=== PATIENT | female | born 1995 | race American Indian/Alaskan Native ===

== ENCOUNTER 2016-07-29 22:27 | Emergency (ER) | payer MEDICAID ==
[2016-07-29 23:15] LABS: CHLORIDE,CL 106 mmol/L (101-111); SODIUM,NA 140 mmol/L (135-145)
--- NOTE | 2016-07-29 23:36 | EDM.PDOC ---
ED HPI GI/ABDOMINAL - General Chief Complaint: Abdominal Pain Stated Complaint: ABDOMINAL PAIN,VOMITING Time Seen by Provider: 07/29/16 23:20 Source of Information: Reports: Patient History Limitations: Reports: No limitations - History of Present Illness INITIAL COMMENTS - FREE TEXT/NARRATIVE: This 20 yo female patient was brought to the ED by her family due to lower abdominal pain that started today. The patient reports most of her pain is in the left lower quadrant. The patient reports normal bowel movements and normal urination. The patient has not taken anything to make her symptoms better and palpation of the abdomen makes her pain worse. Symptom Onset Date: 07/29/16 Timing/Duration: Reports: Hour(s):, Constant, Getting worse Location: LLQ Quality: Reports: ache, cramping Severity: severe Worsens with: Reports: palpation Associated Symptoms (-Female): Reports: denies other symptoms - Related Data Allergies/ADRs: Allergies Allergy/AdvReac Type Severity Reaction Status Date / Time No Known Allergies Allergy Verified 07/29/16 22:32 Home Meds: Home Meds Omeprazole 40 mg PO DAILY 11/01/15 [History] Past Medical History - Past Health History Medical/Surgical History: Denies Medical/Surgical History HEENT History: Reports: None Cardiovascular History: Reports: None Respiratory History: Reports: None Gastrointestinal History: Reports: GERD Genitourinary History: Reports: None 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 Musculoskeletal History: Reports: None Neurological History: Reports: None Psychiatric History: Reports: None Endocrine/Metabolic History: Reports: None Hematologic History: Reports: None Immunologic History: Reports: None Oncologic (Cancer) History: Reports: None Dermatologic History: Reports: Eczema - Infectious Disease History Infectious Disease History: Reports: None - Past Surgical History Head Surgeries/Procedures: Reports: None GI Surgical History: Reports: Cholecystectomy Social & Family History - Family History Family Medical History: Noncontributory - Tobacco Use Smoking Status *Q: Current Every Day Smoker Years of Tobacco use: 3 Packs/Tins Daily: 0.5 Used Tobacco, but Quit: No Month Tobacco Last Used: september Second Hand Smoke Exposure: No - Caffeine Use Caffeine Use: Reports: Coffee, Energy drinks, Soda - Alcohol Use Days Per Week of Alcohol Use: 0 - Recreational Drug Use Recreational Drug Use: Yes Drug Use in Last 12 Months: Yes Recreational Drug Type: Reports: Marijuana/Hashish Recreational Drug Use Frequency: Daily ED ROS GENERAL - Review of Systems Review Of Systems: ROS reveals no pertinent complaints other than HPI. ED EXAM, GI/ABD - Physical Exam Exam: See Below Exam Limited By: No limitations General Appearance: alert, WD/WN, moderate distress Eyes: bilateral: normal appearance, EOMI Ears: normal external exam, normal canal, hearing grossly normal, normal TMs Nose: normal inspection, normal mucosa, no blood Throat/Mouth: Normal inspection, Normal lips, Normal teeth, Normal gums, Normal oropharynx, Normal voice, No airway compromise Head: atraumatic, normocephalic Neck: normal inspection, supple, non-tender, full range of motion Respiratory/Chest: no respiratory distress, lungs clear, normal breath sounds, no accessory muscle use, chest non-tender GI/Abdominal: normal bowel sounds, no organomegaly, no distention, no abnormal bruit, no mass, tenderness (diffuse), guarding, rebound, psoas sign (Female) Exam: Deferred Rectal (Female) Exam: Deferred Back Exam: normal inspection, full range of motion, NT Extremities: normal inspection, normal range of motion, non-tender, normal capillary refill, no pedal edema Neurological: alert, oriented, CN II-XII intact, normal cognition Psychiatric: normal affect, normal mood Skin Exam: Warm, Dry, Intact, Normal color, No rash Lymphatic: no adenopathy Course - Vital Signs Last Recorded V/S: Last Vital Signs Temp 36.3 C 07/30/16 00:20 Pulse 86 07/30/16 00:20 Resp 16 07/30/16 00:20 BP 116/74 07/30/16 00:20 Pulse Ox 98 07/30/16 00:20 - Orders/Labs/Meds Labs: Laboratory Tests 07/29/16 07/29/16 07/29/16 Range/Units 22:42 22:42 22:55 WBC 13.7 H (5.0-10.0) 10^3/uL RBC 4.64 (4.2-5.4) 10^6/uL Hgb 13.6 (12.0-16.0) g/dL Hct 41.5 (37.0-47.0) % MCV 89.4 (80-100) fL MCH 29.3 (27.0-34.0) pg MCHC 32.8 L (33.0-35.0) g/dL Plt Count 309 (150-450) 10^3/uL Neut % (Auto) 77.4 H (42.2-75.2) % Lymph % (Auto) 15.6 L (20.5-50.1) % [place] % (Auto) 5.3 (2-8) % Eos % (Auto) 1.4 (1.0-3.0) % Baso % (Auto) 0.3 (0.0-1.0) % Sodium (135-145) mmol/L Potassium (3.6-5.0) mmol/L Chloride (101-111) mmol/L Carbon Dioxide (21.0-31.0) mmol/L Anion Gap BUN (7-18) mg/dL Creatinine (0.6-1.3) mg/dL Est Cr Clr Drug Dosing mL/min Estimated GFR (MDRD) BUN/Creatinine Ratio Glucose (74-105) mg/dL Calcium (8.4-10.2) mg/dl Total Bilirubin (0.2-1.0) mg/dL AST (10-42) IU/L ALT (10-60) IU/L Alkaline Phosphatase (42-121) IU/L Total Protein (6.7-8.2) g/dl Albumin (3.2-5.5) g/dl Globulin Albumin/Globulin Ratio HCG, Qual Urine Color Yellow (YELLOW) Urine Appearance Slightly cloudy (CLEAR) Urine pH 6.0 (5.0-9.0) Ur Specific [place] 1.015 (1.005-1.030) Urine Protein Negative (NEGATIVE) Urine Glucose (UA) Negative (NEGATIVE) Urine Ketones Negative (NEGATIVE) Urine Occult Blood Negative (NEGATIVE) Urine Nitrite Negative (NEGATIVE) Urine Bilirubin Negative (NEGATIVE) Urine Urobilinogen 0.2 (0.2-1.0) mg/dL Ur Leukocyte Esterase Small H (NEGATIVE) Urine RBC 0-5 /HPF Urine WBC 5-10 H (0-5/HPF) /HPF Ur Epithelial Cells Few /HPF Urine Bacteria Rare (0-FEW/HPF) /HPF Urine Opiates Screen Negative (NEGATIVE) Ur Oxycodone Screen Negative (NEGATIVE) Urine Methadone Screen Negative (NEGATIVE) Ur Barbiturates Screen Negative (NEGATIVE) U Tricyclic Antidepress Negative (NEGATIVE) Ur Phencyclidine Scrn Negative (NEGATIVE) Ur Amphetamine Screen Negative (NEGATIVE) U Methamphetamines Scrn Negative (NEGATIVE) Urine MDMA Screen Negative (NEGATIVE) U Benzodiazepines Scrn Negative (NEGATIVE) Urine Cocaine Screen Negative (NEGATIVE) U Marijuana (THC) Screen Positive H (NEGATIVE) 07/29/16 Range/Units 22:55 WBC (5.0-10.0) 10^3/uL RBC (4.2-5.4) 10^6/uL Hgb (12.0-16.0) g/dL Hct (37.0-47.0) % MCV (80-100) fL MCH (27.0-34.0) pg MCHC (33.0-35.0) g/dL Plt Count (150-450) 10^3/uL Neut % (Auto) (42.2-75.2) % Lymph % (Auto) (20.5-50.1) % [place] % (Auto) (2-8) % Eos % (Auto) (1.0-3.0) % Baso % (Auto) (0.0-1.0) % Sodium 140 (135-145) mmol/L Potassium 3.7 (3.6-5.0) mmol/L Chloride 106 (101-111) mmol/L Carbon Dioxide 25.0 (21.0-31.0) mmol/L Anion Gap 12.7 BUN 7 (7-18) mg/dL Creatinine 0.7 (0.6-1.3) mg/dL Est Cr Clr Drug Dosing 87.01 mL/min Estimated GFR (MDRD) > 60 BUN/Creatinine Ratio 10.00 Glucose 96 (74-105) mg/dL Calcium 9.3 (8.4-10.2) mg/dl Total Bilirubin 0.3 (0.2-1.0) mg/dL AST 21 (10-42) IU/L ALT 14 (10-60) IU/L Alkaline Phosphatase 79 (42-121) IU/L Total Protein 7.5 (6.7-8.2) g/dl Albumin 4.2 (3.2-5.5) g/dl Globulin 3.3 Albumin/Globulin Ratio 1.27 HCG, Qual Negative Urine Color (YELLOW) Urine Appearance (CLEAR) Urine pH (5.0-9.0) Ur Specific [place] (1.005-1.030) Urine Protein (NEGATIVE) Urine Glucose (UA) (NEGATIVE) Urine Ketones (NEGATIVE) Urine Occult Blood (NEGATIVE) Urine Nitrite (NEGATIVE) Urine Bilirubin (NEGATIVE) Urine Urobilinogen (0.2-1.0) mg/dL Ur Leukocyte Esterase (NEGATIVE) Urine RBC /HPF Urine WBC (0-5/HPF) /HPF Ur Epithelial Cells /HPF Urine Bacteria (0-FEW/HPF) /HPF Urine Opiates Screen (NEGATIVE) Ur Oxycodone Screen (NEGATIVE) Urine Methadone Screen (NEGATIVE) Ur Barbiturates Screen (NEGATIVE) U Tricyclic Antidepress (NEGATIVE) Ur Phencyclidine Scrn (NEGATIVE) Ur Amphetamine Screen (NEGATIVE) U Methamphetamines Scrn (NEGATIVE) Urine MDMA Screen (NEGATIVE) U Benzodiazepines Scrn (NEGATIVE) Urine Cocaine Screen (NEGATIVE) U Marijuana (THC) Screen (NEGATIVE) Meds: Medications Discontinued Medications Generic Name Dose Route Start Last Admin Trade Name Freq PRN Reason Stop Dose Admin Iopamidol 75 ml 07/29/16 23:48 07/30/16 00:01 Isovue-300 (61%) IVPUSH 07/29/16 23:49 75 ml ONETIME ONE Administration Departure - Departure Time of Disposition: 00:47 Disposition: Home, Self-Care 01 Condition: fair Clinical Impression: Flatulence, eructation and gas pain Abdominal pain Qualifiers: Abdominal location: generalized Qualified Code(s): R10.84 - Generalized abdominal pain Instructions: Abdominal Pain, Adult, [id number] Forms: ED Department Discharge Care Plan Goals: The patient was advised of the examination, lab and CT results during the visit. The patient was encouraged to increase her mobility. If the patient has any additional symptoms or concerns, the patient should follow-up with her primary care facility or return to the emergency department.
[2016-07-29] MEDS ORDERED: Iopamidol 612 MG/ML 75 ML Bottle IVPUSH ONE (23:48)
[2016-07-30 00:20] VITALS: BP 116/74
== END 2016-07-30 00:51 | disposition home or self-care (01) ==
LOC: DL.ED 22:27
DX: R10.84 Generalized abdominal pain (principal); R10.32 Left lower quadrant pain; R14.3 Flatulence; R14.2 Eructation; R14.1 Gas pain; K21.9 Gastro-esophageal reflux disease without esophagitis; F17.210 Nicotine dependence, cigarettes, uncomplicated; Z90.49 Acquired absence of other specified parts of digestive tract
CPT/HCPCS: 36415; 74177; 80053; 80305; 81001; 84703; 85025; 99284; Q9967

== ENCOUNTER 2016-10-11 16:46 | Emergency (ER) | payer MEDICAID ==
[2016-10-11 17:22] VITALS: BP 120/79
[2016-10-11] MEDS ORDERED: Bacitracin Oint 1 GM U/D Packet TOP ONE (17:43)
[2016-10-11] MEDS ORDERED: Lidocaine 1% 30 ML SDV INJECT ONE (17:43)
--- NOTE | 2016-10-11 18:08 | EDM.PDOC ---
ED HPI GENERAL MEDICAL PROBLEM - General Chief Complaint: Laceration Stated Complaint: CUT FINGER Time Seen by Provider: 10/11/16 17:45 Source of Information: Reports: Patient History Limitations: Reports: No Limitations - History of Present Illness INITIAL COMMENTS - FREE TEXT/NARRATIVE: This 21 yo female patient reports to the ED with a laceration to her left 2nd finger on the flexor surface of the DIP. The patient reports she was opening a package with a knife at the time of the incident. Onset: Today Duration: Constant Location: Reports: Upper Extremity, Left Quality: Reports: Ache, Dull Severity: Mild Improves with: Reports: None Worsens with: Reports: None Associated Symptoms: Reports: No Other Symptoms Left Hand Pain Score (Numeric/FACES): 10 - Related Data Allergies Allergy/AdvReac Type Severity Reaction Status Date / Time No Known Allergies Allergy Verified 07/29/16 22:32 Home Meds: Home Meds Omeprazole 40 mg PO DAILY 11/01/15 [History] Past Medical History - Past Health History Medical/Surgical History: Denies Medical/Surgical History HEENT History: Reports: None Cardiovascular History: Reports: None Respiratory History: Reports: None Gastrointestinal History: Reports: GERD Genitourinary History: Reports: None 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 Musculoskeletal History: Reports: None Neurological History: Reports: None Psychiatric History: Reports: None Endocrine/Metabolic History: Reports: None Hematologic History: Reports: None Immunologic History: Reports: None Oncologic (Cancer) History: Reports: None Dermatologic History: Reports: Eczema - Infectious Disease History Infectious Disease History: Reports: None - Past Surgical History Head Surgeries/Procedures: Reports: None GI Surgical History: Reports: Cholecystectomy Social & Family History - Family History Family Medical History: Noncontributory - Tobacco Use Smoking Status *Q: Current Some Day Smoker Years of Tobacco use: 4 Packs/Tins Daily: 1 Used Tobacco, but Quit: No Month Tobacco Last Used: september Second Hand Smoke Exposure: No - Caffeine Use Caffeine Use: Reports: Coffee, Energy Drinks, Soda, Tea - Alcohol Use Days Per Week of Alcohol Use: 0 - Recreational Drug Use Recreational Drug Use: Yes Drug Use in Last 12 Months: Yes Recreational Drug Type: Reports: Marijuana/Hashish Recreational Drug Use Frequency: Daily ED ROS GENERAL - Review of Systems Review Of Systems: ROS reveals no pertinent complaints other than HPI. ED EXAM, SKIN/RASH Exam: See Below Exam Limited By: No Limitations General Appearance: Alert, WD/WN, Mild Distress Eye Exam: Bilateral Eye: EOMI Ears: Normal External Exam Nose: Normal Inspection, Normal Mucosa, No Blood Throat/Mouth: Normal Inspection, Normal Lips, Normal Teeth Head: Atraumatic, Normocephalic Neck: Full Range of Motion Respiratory/Chest: No Respiratory Distress (Female) Exam: Deferred Rectal (Female) Exam: Deferred Extremities: No Pedal Edema, Normal Capillary Refill Neurological: Alert, Oriented Psychiatric: Normal Affect, Normal Mood Skin: Warm, Dry, Normal Color, No Rash Location, Skin: Upper Extremity, Left Characteristics: Linear Associated features: No: Warmth, Tenderness, [place] ED SKIN PROCEDURES - Laceration/Wound Repair Left Finger Lac/Wound length In cm: 1.0 Appearance: Subcutaneous Distal NVT: Neuro & Vascular Intact, No Tendon Injury Anesthetic Type: Local Local Anesthesia - Lidocaine (Xylocaine): 1% Plain Local Anesthetic Volume: 3cc Skin Prep: Chlorhexidine (Hibiciens), Providone-Iodine (Betadine) Exploration/Debridement/Repair: Wound Explored, Explored to Base, No Foreign Material Found Closed with: Sutures Suture Size: 4-0 # of Sutures: 3 Suture Type: Prolene, Interrupted, Simple Drain Placement: No Sterile Dressing Applied: Nurse Tetanus Status Addressed: No Complications: No Course - Vital Signs Last Recorded V/S: Last Vital Signs Temp 36.6 C 10/11/16 17:21 Pulse 54 L 10/11/16 17:21 Resp 14 10/11/16 17:21 BP 120/79 10/11/16 17:21 Pulse Ox 99 10/11/16 17:21 - Orders/Labs/Meds Meds: Medications Discontinued Medications Generic Name Dose Route Start Last Admin Trade Name Denisq PRN Reason Stop Dose Admin Bacitracin 1 dose 10/11/16 17:43 10/11/16 17:46 Bacitracin Oint 1 Gm TOP 10/11/16 17:44 1 dose ONETIME ONE Administration Lidocaine HCl 30 ml 10/11/16 17:43 10/11/16 17:47 Xylocaine-Mpf 1% INJECT 10/11/16 17:44 30 ml ONETIME ONE Administration Departure - Departure Time of Disposition: 18:04 Disposition: Home, Self-Care 01 Condition: Fair Clinical Impression: Laceration of left index finger Qualifiers: Encounter type: initial encounter Damage to nail status: without damage Foreign body presence: without foreign body Qualified Code(s): S61.211A - Laceration without foreign body of left index finger without damage to nail, initial encounter - Discharge Information Instructions: Laceration Care, Adult, [id number] Forms: ED Department Discharge Care Plan Goals: The patient was advised of the examination results during the visit. The patient 's laceration margins were well approximated during the visit. The patient should keep the area clean and dry over the next 24 hours. The patient should have the sutures removed in 14 days. If the patient has any additional symptoms or concerns, the patient should follow-up with her primary care facility or return to the emergency department.
== END 2016-10-11 18:12 | disposition home or self-care (01) ==
LOC: DL.ED 16:46
DX: S61.211A Laceration without foreign body of left index finger without damage to nail, initial encounter (principal); F17.210 Nicotine dependence, cigarettes, uncomplicated; K21.9 Gastro-esophageal reflux disease without esophagitis; Z79.899 Other long term (current) drug therapy; Z90.49 Acquired absence of other specified parts of digestive tract
CPT/HCPCS: 12001; 99283

== ENCOUNTER 2016-12-04 19:40 | Emergency (ER) | payer MEDICAID ==
[2016-12-04 19:49] VITALS: BP 131/85
[2016-12-04] MEDS ORDERED: LORazepam 2 MG/ML Syringe IVPUSH ONE (19:57)
--- NOTE | 2016-12-04 19:59 | EDM.PDOC ---
ED HPI GENERAL MEDICAL PROBLEM - General Chief Complaint: Respiratory Problem Stated Complaint: AMBULANCE Time Seen by Provider: 12/04/16 19:45 Source of Information: Reports: Patient, EMS History Limitations: Reports: No Limitations - History of Present Illness INITIAL COMMENTS - FREE TEXT/NARRATIVE: c/o right posterior chest and flank pain starting around noon, laid down for nap and when woke pain worse. Increases with deep breathing, and movment. No pain with urination, Lmp initially reported one month ago then reported started 5 days ago and one week early, Passed large clot this am. Denied drug use. Smoker 5 perday. 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) Right Lower Back Pain Score (Numeric/FACES): 10 - Related Data Allergies Allergy/AdvReac Type Severity Reaction Status Date / Time No Known Allergies Allergy Verified 12/04/16 21:48 Past Medical History - Past Health History Medical/Surgical History: Denies Medical/Surgical History HEENT History: Reports: None Cardiovascular History: Reports: None Respiratory History: Reports: None Gastrointestinal History: Reports: GERD Genitourinary History: Reports: None 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 Musculoskeletal History: Reports: None Neurological History: Reports: None Psychiatric History: Reports: None Endocrine/Metabolic History: Reports: None Hematologic History: Reports: None Immunologic History: Reports: None Oncologic (Cancer) History: Reports: None Dermatologic History: Reports: Eczema - Infectious Disease History Infectious Disease History: Reports: None - Past Surgical History Head Surgeries/Procedures: Reports: None GI Surgical History: Reports: Cholecystectomy Social & Family History - Family History Family Medical History: Noncontributory - Tobacco Use Smoking Status *Q: Current Some Day Smoker Years of Tobacco use: 4 Packs/Tins Daily: 1 Used Tobacco, but Quit: No Month Tobacco Last Used: september Second Hand Smoke Exposure: No - Caffeine Use Caffeine Use: Reports: Coffee, Energy Drinks, Soda, Tea - Alcohol Use Days Per Week of Alcohol Use: 0 - Recreational Drug Use Recreational Drug Use: Yes Drug Use in Last 12 Months: Yes Recreational Drug Type: Reports: Marijuana/Hashish Recreational Drug Use Frequency: Daily ED ROS GENERAL - Review of Systems Review Of Systems: See Below Constitutional: Reports: No Symptoms HEENT: Reports: No Symptoms Respiratory: Reports: Pleuritic Chest Pain Cardiovascular: Reports: No Symptoms GI/Abdominal: Reports: No Symptoms : Reports: Irregular Menses Musculoskeletal: Reports: No Symptoms Skin: Reports: No Symptoms Neurological: Reports: No Symptoms Psychiatric: Reports: Anxiety ED EXAM, GENERAL - Physical Exam Exam: See Below Exam Limited By: No Limitations General Appearance: Alert, Anxious (hyperventilating) Eye Exam: Bilateral Eye: EOMI Ears: Normal External Exam, Normal TMs Nose: Normal Inspection Throat/Mouth: Normal Inspection Head: Atraumatic, Normocephalic Neck: Normal Inspection, Full Range of Motion. No: Lymphadenopathy (L), Lymphadenopathy (R) Respiratory/Chest: No Respiratory Distress, Lungs Clear Cardiovascular: Normal Peripheral Pulses, Regular Rate, Rhythm, Tachycardia GI/Abdominal: Normal Bowel Sounds, Soft, Non-Tender Back Exam: CVA Tenderness (R). No: CVA Tenderness (L) Extremities: Normal Inspection Neurological: Alert, Oriented Psychiatric: Anxious (hyperventilating) Skin Exam: Warm, Dry, Intact Course - Vital Signs Last Recorded V/S: Last Vital Signs Temp 98.6 F 12/04/16 19:47 Pulse 124 H 12/04/16 19:47 Resp 22 H 12/04/16 19:47 BP 131/85 12/04/16 19:47 Pulse Ox 100 12/04/16 19:47 - Orders/Labs/Meds Labs: Laboratory Tests 12/04/16 12/04/16 12/04/16 Range/Units 19:55 19:55 20:01 WBC 7.8 (5.0-10.0) 10^3/uL RBC 4.47 (4.2-5.4) 10^6/uL Hgb 12.8 (12.0-16.0) g/dL Hct 39.1 (37.0-47.0) % MCV 87.5 (80-100) fL MCH 28.6 (27.0-34.0) pg MCHC 32.7 L (33.0-35.0) g/dL Plt Count 249 (150-450) 10^3/uL Neut % (Auto) 83.8 H (42.2-75.2) % Lymph % (Auto) 7.3 L (20.5-50.1) % [place] % (Auto) 8.7 H (2-8) % Eos % (Auto) 0.1 L (1.0-3.0) % Baso % (Auto) 0.1 (0.0-1.0) % D-Dimer, Quantitative (0-400) ng/mL Sodium (135-145) mmol/L Potassium (3.6-5.0) mmol/L Chloride (101-111) mmol/L Carbon Dioxide (21.0-31.0) mmol/L Anion Gap BUN (7-18) mg/dL Creatinine (0.6-1.3) mg/dL Est Cr Clr Drug Dosing Estimated GFR (MDRD) BUN/Creatinine Ratio Glucose (74-105) mg/dL Lactic Acid (0.5-2.2) mmol/L Calcium (8.4-10.2) mg/dl Total Bilirubin (0.2-1.0) mg/dL AST (10-42) IU/L ALT (10-60) IU/L Alkaline Phosphatase (42-121) IU/L Total Protein (6.7-8.2) g/dl Albumin (3.2-5.5) g/dl Globulin Albumin/Globulin Ratio HCG, Qual Urine Color Dark yellow (YELLOW) Urine Appearance Turbid (CLEAR) Urine pH 6.0 (5.0-9.0) Ur Specific [place] >= 1.030 (1.005-1.030) Urine Protein 30 H (NEGATIVE) Urine Glucose (UA) Negative (NEGATIVE) Urine Ketones Negative (NEGATIVE) Urine Occult Blood Large H (NEGATIVE) Urine Nitrite Negative (NEGATIVE) Urine Bilirubin Small H (NEGATIVE) Urine Urobilinogen 1.0 (0.2-1.0) mg/dL Ur Leukocyte Esterase Negative (NEGATIVE) Urine RBC >100 H /HPF Urine WBC 0-5 (0-5/HPF) /HPF Ur Epithelial Cells Moderate H /HPF Amorphous Sediment Few (0/HPF) /HPF Urine Bacteria Rare (0-FEW/HPF) /HPF Urine Mucus Moderate H /LPF Urine Opiates Screen Negative (NEGATIVE) Ur Oxycodone Screen Positive H (NEGATIVE) Urine Methadone Screen Negative (NEGATIVE) Ur Barbiturates Screen Negative (NEGATIVE) U Tricyclic Antidepress Negative (NEGATIVE) Ur Phencyclidine Scrn Negative (NEGATIVE) Ur Amphetamine Screen Negative (NEGATIVE) U Methamphetamines Scrn Negative (NEGATIVE) Urine MDMA Screen Negative (NEGATIVE) U Benzodiazepines Scrn Negative (NEGATIVE) Urine Cocaine Screen Negative (NEGATIVE) U Marijuana (THC) Screen Positive H (NEGATIVE) 12/04/16 12/04/16 12/04/16 Range/Units 20:01 20:01 20:01 WBC (5.0-10.0) 10^3/uL RBC (4.2-5.4) 10^6/uL Hgb (12.0-16.0) g/dL Hct (37.0-47.0) % MCV (80-100) fL MCH (27.0-34.0) pg MCHC (33.0-35.0) g/dL Plt Count (150-450) 10^3/uL Neut % (Auto) (42.2-75.2) % Lymph % (Auto) (20.5-50.1) % [place] % (Auto) (2-8) % Eos % (Auto) (1.0-3.0) % Baso % (Auto) (0.0-1.0) % D-Dimer, Quantitative 233 (0-400) ng/mL Sodium 140 (135-145) mmol/L Potassium 2.8 L (3.6-5.0) mmol/L Chloride 103 (101-111) mmol/L Carbon Dioxide 22.0 (21.0-31.0) mmol/L Anion Gap 17.8 BUN 8 (7-18) mg/dL Creatinine 0.7 (0.6-1.3) mg/dL Est Cr Clr Drug Dosing TNP Estimated GFR (MDRD) > 60 BUN/Creatinine Ratio 11.42 Glucose 96 (74-105) mg/dL Lactic Acid 4.0 H (0.5-2.2) mmol/L Calcium 9.2 (8.4-10.2) mg/dl Total Bilirubin 0.6 (0.2-1.0) mg/dL AST 29 (10-42) IU/L ALT 19 (10-60) IU/L Alkaline Phosphatase 96 (42-121) IU/L Total Protein 7.4 (6.7-8.2) g/dl Albumin 4.2 (3.2-5.5) g/dl Globulin 3.2 Albumin/Globulin Ratio 1.31 HCG, Qual Negative Urine Color (YELLOW) Urine Appearance (CLEAR) Urine pH (5.0-9.0) Ur Specific [place] (1.005-1.030) Urine Protein (NEGATIVE) Urine Glucose (UA) (NEGATIVE) Urine Ketones (NEGATIVE) Urine Occult Blood (NEGATIVE) Urine Nitrite (NEGATIVE) Urine Bilirubin (NEGATIVE) Urine Urobilinogen (0.2-1.0) mg/dL Ur Leukocyte Esterase (NEGATIVE) Urine RBC /HPF Urine WBC (0-5/HPF) /HPF Ur Epithelial Cells /HPF Amorphous Sediment (0/HPF) /HPF Urine Bacteria (0-FEW/HPF) /HPF Urine Mucus /LPF Urine Opiates Screen (NEGATIVE) Ur Oxycodone Screen (NEGATIVE) Urine Methadone Screen (NEGATIVE) Ur Barbiturates Screen (NEGATIVE) U Tricyclic Antidepress (NEGATIVE) Ur Phencyclidine Scrn (NEGATIVE) Ur Amphetamine Screen (NEGATIVE) U Methamphetamines Scrn (NEGATIVE) Urine MDMA Screen (NEGATIVE) U Benzodiazepines Scrn (NEGATIVE) Urine Cocaine Screen (NEGATIVE) U Marijuana (THC) Screen (NEGATIVE) Meds: Medications Discontinued Medications Generic Name Dose Route Start Last Admin Trade Name Freq PRN Reason Stop Dose Admin Acetaminophen 650 mg 12/04/16 23:35 12/04/16 23:49 Tylenol PO 12/04/16 23:36 650 mg NOW ONE Administration Potassium Chloride 10 meq/ 100 mls @ 100 mls/hr 12/04/16 20:50 12/04/16 21:11 Premix IV 12/04/16 21:49 100 mls/hr ONETIME ONE Administration Sodium Chloride 1,000 mls @ 999 mls/hr 12/04/16 20:51 12/04/16 21:07 Normal Saline IV 12/04/16 21:51 999 mls/hr .BOLUS ONE Administration Lorazepam 0.5 mg 12/04/16 19:57 12/04/16 20:02 Ativan IVPUSH 12/04/16 19:58 0.5 mg ONETIME ONE Administration Ondansetron HCl 4 mg 12/04/16 21:03 12/04/16 21:08 Zofran IV 12/04/16 21:04 4 mg ONETIME ONE Administration Potassium Chloride 20 meq 12/04/16 20:49 12/04/16 21:08 Klor-Con 10 PO 12/04/16 20:50 20 meq ONETIME ONE Administration - Radiology Interpretation Free Text/Narrative:: CXR and CT abdomen pelvis negative - Re-Assessments/Exams Free Text/Narrative Re-Assessment/Exam: Pain and anxiety improved following Ativan. Emesis x1 Dozing. Departure - Departure Time of Disposition: 23:36 Disposition: Home, Self-Care 01 Condition: Good Clinical Impression: Right flank pain, Anxiety - Discharge Information Instructions: Panic Attacks, [id number], Costochondritis, [id number] Forms: ED Department Discharge Additional Instructions: alternate tylenol and ibuprofen every 4 hours as needed push fluids follow up with recheck of potassium level in clinic on Saturday
[2016-12-04 20:25] LABS: CHLORIDE,CL 103 mmol/L (101-111); SODIUM,NA 140 mmol/L (135-145)
[2016-12-04] MEDS ORDERED: Potassium Chloride 10 MEQ Tab.ER PO ONE (20:49)
[2016-12-04] MEDS ORDERED: Potassium Chloride 10 MEQ in Premix Bag 1 BAG IV ONE (20:50)
[2016-12-04] MEDS ORDERED: Sodium Chloride 0.9% 1,000 ML IV ONE (20:51)
[2016-12-04] MEDS ORDERED: Ondansetron 4 MG/2 ML SDV IV ONE (21:03)
[2016-12-04] MEDS ORDERED: Acetaminophen 325 MG Tab PO ONE (23:35)
== END 2016-12-04 23:57 | disposition home or self-care (01) ==
LOC: DL.ED 19:40
DX: R10.9 Unspecified abdominal pain (principal); F41.9 Anxiety disorder, unspecified; K21.9 Gastro-esophageal reflux disease without esophagitis; F17.210 Nicotine dependence, cigarettes, uncomplicated; Z90.49 Acquired absence of other specified parts of digestive tract
CPT/HCPCS: 36415; 71020; 74176; 80053; 80305; 81001; 83605; 84703; 85025; 85379; 96365; 96366; 96368; 96375; 99284; A9270; J2060; J2405; J3480; J7030

== ENCOUNTER 2016-12-06 14:20 | Emergency (ER) | payer MEDICAID ==
[2016-12-06] MEDS ORDERED: Sodium Chloride 0.9% 10 ML Syringe FLUSH PRN (14:34)
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
[2016-12-06] MEDS ORDERED: Sodium Chloride 0.9% 1,000 ML IV ONE (14:36)
[2016-12-06 14:56] VITALS: BP 116/85
[2016-12-06 15:12] LABS: ACETAMINOPHEN 12.1; CHLORIDE,CL 106 mmol/L (101-111); SODIUM,NA 140 mmol/L (135-145)
--- NOTE | 2016-12-07 22:21 | EKG ---
12/06/2016 - KELLY DEWITT - This 12-lead EKG shows a sinus arrhythmia with an average rate of 54 (47 to 63). No acute ST-segment or T-wave changes. [facility] /[id number]
== END 2016-12-06 16:35 ==
LOC: DL.ED 14:20
DX: T44.7X2A Poisoning by beta-adrenoreceptor antagonists, intentional self-harm, initial encounter (principal); T74.31XA Adult psychological abuse, confirmed, initial encounter; F32.9 Major depressive disorder, single episode, unspecified; Z90.49 Acquired absence of other specified parts of digestive tract; F17.210 Nicotine dependence, cigarettes, uncomplicated
CPT/HCPCS: 36415; 80053; 80305; 81001; 81025; 83735; 85025; 85610; 85730; 93005; 96360; 99285; G0480; J7030; J7050

== ENCOUNTER 2017-01-06 19:26 | Emergency (ER) | payer MEDICAID ==
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
[2017-01-06 20:15] LABS: CHLORIDE,CL 106 mmol/L (101-111); SODIUM,NA 140 mmol/L (135-145)
[2017-01-06 20:16] LABS: ACETAMINOPHEN < 10.0
[2017-01-06] MEDS ORDERED: Iopamidol 612 MG/ML 75 ML Bottle IVPUSH ONE (20:22)
[2017-01-06 23:06] VITALS: BP 142/90
[2017-01-06] MEDS ORDERED: LORazepam 2 MG/ML Syringe IVPUSH ONE (23:09)
== END 2017-01-06 23:27 ==
LOC: DL.ED 19:26
DX: T14.91 Suicide attempt (principal); K21.9 Gastro-esophageal reflux disease without esophagitis; F32.9 Major depressive disorder, single episode, unspecified; F17.210 Nicotine dependence, cigarettes, uncomplicated; Z90.49 Acquired absence of other specified parts of digestive tract; X83.8XXA Intentional self-harm by other specified means, initial encounter
CPT/HCPCS: 36415; 70450; 72125; 74177; 80053; 80305; 81001; 82140; 82150; 83690; 83735; 84484; 84703; 85025; 86788; 96374; 99285; G0480; J2060; Q9967

== ENCOUNTER 2018-07-31 00:39 | Inpatient (IN) | payer MEDICAID ==
[2018-07-31] MEDS ORDERED: Penicillin G Potassium 5 MILLUNITS in Sodium Chloride 0.9% 100 ML IV ONE (01:15)
[2018-07-31] MEDS: Lactated Ringers 1,000 ML IV SCH ×2 (01:35→12:45)
[2018-07-31] MEDS ORDERED: Nalbuphine 10 MG/1 ML Vial IM PRN (03:26)
[2018-07-31] MEDS ORDERED: Oxytocin/Normal Saline 30 UNIT/500 ML BAG IV SCH ×2 (03:30→08:45)
[2018-07-31] MEDS: Penicillin G Potassium 3 MILLUNITS in Sodium Chloride 0.9% 100 ML IV SCH ×3 (05:59→14:05)
[2018-07-31] MEDS ORDERED: Sodium Chloride 0.9% 10 ML Syringe FLUSH PRN ×2 (08:42→17:46)
[2018-07-31] MEDS ORDERED: Carboprost Tromethamine 250 MCG/1 ML Amp IM PRN ×2 (09:00→17:46)
[2018-07-31] MEDS ORDERED: Methylergonovine 0.2 MG/1 ML Amp IM PRN (09:00)
[2018-07-31] MEDS ORDERED: Lactated Ringers 1,000 ML IV SCH (09:00)
[2018-07-31] MEDS ORDERED: Tranexamic Acid 1,000 MG in Sodium Chloride 0.9% 100 ML IV PRN ×2 (09:00→17:46)
[2018-07-31] MEDS ORDERED: Ondansetron 4 MG/2 ML SDV IV PRN (09:00)
[2018-07-31] MEDS ORDERED: Misoprostol 400 MCG (4 X 100 MCG TAB) RECTAL PRN ×2 (09:00→17:46)
[2018-07-31] MEDS ORDERED: Lidocaine 1% 30 ML SDV INJECT PRN (09:00)
[2018-07-31] MEDS ORDERED: Lactated Ringers 500 ML IV ONE (09:00)
--- NOTE | 2018-07-31 11:22 | PN ---
DATE: 07/31/2018 SUBJECTIVE: The patient states her contractions are still there, but not as strong as they have been in the past. Continues on Pitocin. OBJECTIVE: Oxytocin at 10 milliunits per minute. heart tones in the 130s and reactive and reassuring. Tocometer reveals contractions every 2 to 4 minute. Vaginal exam reveals her to be 2 cm, 80% effaced, +1 station, vertex, and artificial rupture of membranes done after discussion with the patient yielding clear fluid. ASSESSMENT: 1. Intrauterine at 38 and 2/7th weeks by 9-week ultrasound, admitted with contractions and then diagnosed with preeclampsia and GBS positive status, now status post 2 doses of penicillin with history of chlamydia treated and negative thereafter on 05/29/2018 with history of positive drug screen in the past, negative upon admission, this was for oxycodone back in 05/16/2018. 2. G1, P0. PLAN: The patient has been admitted. Pitocin has been started. Artificial rupture of membranes has been done. She has received 2 doses of penicillin at this point in time due to GBS positive status. We will continue to follow clinically and closely. The patient understands and agrees with the above treatment plan. [facility] /[id number]
[2018-07-31] MEDS ORDERED: EPINEPHrine 1 MG/ML SDV ONE (12:42)
[2018-07-31] MEDS ORDERED: fentaNYL 100 MCG/2 ML SDV ONE (12:42)
[2018-07-31] MEDS ORDERED: Sodium Bicarbonate 4.2% 2.5 MEQ/5 ML SDV ONE (12:43)
--- NOTE | 2018-07-31 13:13 | PCM.SN ---
- Free Text/Narrative Note: Intrathecal. Sitting position, sterile prep and drape.1% lidocaine w bicarb to L2 L3 interspace and L3 L4 interspace. Introducer at L2 L3, no CSF, Introducer and 24 ga pencan x1 at L3 L4 interspace. No CSF. Return to L2 L3 with new 24 ga pencan. Pos CSF, neg heme, neg parasthesia. 0.1 ml pf 1:1000 epi, 0.4 ml pf ns, 20 mcg pf sufenta, 30 mcg pf fentanyl and 6 mg of 0.75% pf bupivacaine injected after CSF aspiration. Pt to L lateral position. Procedure time 1240 to 1310
--- NOTE | 2018-07-31 14:15 | HP ---
CHIEF COMPLAINT: Onset of contractions with increasing frequency and intensity. HISTORY OF PRESENT ILLNESS: The patient is a 22-year-old, 1, para 0, who presented at 38 weeks 2 days' gestation with increasing intensity and frequency of contractions. The patient stated that cramping and contractions began around 2100 hours on 07/30/2018, which progressed in intensity and frequency up until she presented to Labor and Delivery around midnight on 07/31/2018. Upon presentation, the patient was noted to have an elevated blood pressure along with an elevated urine protein, which puts her into the preeclampsia category. As she is 38 weeks and 2 days and soraya, we will progress with expectant labor. The patient endorses continued contractions, active movement. Denies leakage of fluid or vaginal bleeding at this time. HISTORY: 1. Current . The patient has history of THC use in early . Positive UDS for oxycodone in 04/2018. Negative upon admission. 2. Chlamydia in early - resolved. 3. GBS positive. 4. O positive blood type. PAST MEDICAL HISTORY: 1. Current smoker. 2. History of acid reflux as a child. 3. History of chickenpox as a child. PAST SURGICAL HISTORY: Laparoscopic cholecystectomy in 2013. FAMILY HISTORY: 1. A cousin with cleft palate. 2. Negative family history for anesthesia problems or bleeding problems. SOCIAL HISTORY: The patient lives in [place] and is working at [employer]. Father of the baby is not involved. Father of the baby priorly had a son who at age 3 to 4 months due to a heart defect. The patient has a significant other present, who is not father of the baby, but is involved. ALLERGIES: Ibuprofen - intolerance as she gets nausea and vomiting. CURRENT MEDICATIONS: 1. vitamin. 2. Tylenol. REVIEW OF SYSTEMS: Positive review of systems stated above in HPI. Negative review of systems include headache, blurred vision, shortness of breath, chest pain, fevers or chills, nausea, vomiting, diarrhea, constipation, skin rashes, lower extremity edema, dysuria, or other medical conditions. OBJECTIVE: Vital Signs: HR 76 bpm, BP 134/86, RR 16 breaths per minute. General: The patient is awake, alert, comfortably lying in bed. HEENT: Grossly normal. Cardiovascular: Regular rate and rhythm. No murmurs noted. Pulmonary: Lungs clear to auscultation bilaterally. Abdomen: Soft, normoactive bowel sounds, nontender, gravid uterus palpated measuring 35 cm above the umbilicus. Vertex position. Extremities: No edema or erythema noted in the lower extremities bilaterally. No tenderness to palpation of calves bilaterally. Skin: No rashes or bruising noted. Neurologic: Grossly normal. Cervical: On cervical check, the patient was noted to be 2 cm dilated, 80% effaced, +1 station, and baby is vertex. fht and toco-see NST report RECENT LABORATORY RESULTS: 1. Hematology: WBC 15.2, RBC 4.35, hemoglobin 13.9, hematocrit 40.3, platelet count 267. 2. Chemistry: BUN 10, uric acid 5.1, AST 21, ALT 10, lactate dehydrogenase 100, creatine kinase 37. 3. Urinalysis: Random creatinine 96, total protein 29, protein/creatinine ratio 0.30. 4. Toxicology: UDS negative. ASSESSMENT: The patient is a 22-year-old, 1, para 0 female presenting at 38 weeks 2 days' gestation in labor. Also, the patient's is complicated by preeclampsia at this time. PLAN: It was noted that there was no change with initial contractions upon presentation, so Pitocin was started. Upon recheck at 0820, cervix was noted to be 2 cm dilated, 80% effaced, 1+ station, and vertex presentation. Two doses of penicillin for group B strep positive status were administered. Artificial rupture of membranes occurred at 0820. Continue following closely with expectant delivery. The patient was seen and evaluated today by myself and Dr. Chip Guzman. Assessment and plan under advisement of Dr. Chip Guzman. seen and agreed- [facility] /[id number] SUSI
[2018-07-31] MEDS ORDERED: Ibuprofen 800 MG Tab PO PRN (17:46)
[2018-07-31] MEDS ORDERED: Zolpidem 5 MG Tab PO PRN (17:46)
[2018-07-31] MEDS ORDERED: Benzocaine/Menthol 20%-0.5% Spray 56 GM Canister TOP PRN (17:46)
[2018-07-31] MEDS ORDERED: Simethicone 80 MG Tab.Chew PO PRN (17:46)
[2018-07-31] MEDS ORDERED: Oxytocin 10 Units/1 ML SDV IM PRN (17:46)
[2018-07-31] MEDS ORDERED: Acetaminophen 325 MG Tab PO PRN (17:46)
[2018-07-31] MEDS: Acetaminophen 325 MG Tab PO PRN (18:18)
[2018-08-01] MEDS: Docusate Sodium 100 MG Cap PO PRN ×2 (00:31→22:51)
[2018-08-01] MEDS: Acetaminophen 325 MG Tab PO PRN ×5 (00:31→19:42)
--- NOTE | 2018-08-01 08:48 | PCM.DEL ---
L & D Note - Delivery Note Cervical Ripening Method: Oxytocin Episiotomy Type: None Vacuum Extractor Progress Note - Alternative Labor Strategies Considered Alternative Labor Strategies Considered:: Reports: Yes Strategies Considered:: Reports: Contraction Intensity Adequate, Position Changes Used to Facilitate Rotation & Descent, Empty Bladder, Rest Indications Considered:: Reports: Yes Indications:: Reports: Suspicion of Immediate or Potential Compromise Time Out:: Reports: Yes - Patient Prepared Patient Prepared:: Reports: Yes Informed Consent:: Reports: Verbal Risks: Reports: Yes Risks Include:: Reports: Laceration, Shoulder Dystocia, Maternal Injury, Other Anesthesia/Analgesia Adequate:: Reports: Yes - Probability of Success High Probability of Success:: Reports: Yes Weight Estimated:: Reports: AGA Patient Diabetic:: Reports: No Pelvis Adequate:: Reports: Yes Asynclitic:: Reports: No - Application Time Maximum Application Time & Number of Pop-Offs Predetermined:: Reports: Yes Number of Times Cup Disengaged:: 1 (see nurses note and dictations for details in regards to delivery) Type of Vacuum Used:: Reports: Cup: Robertson type Vacuum Extraction: Successful - Exit Strategy Exit strategy available:: Reports: Yes and resuscitation teams readily available:: Reports: Yes - General Info Date of Service: 07/31/18 - Patient Data Vitals - Most Recent: Last Vital Signs Temp 98.3 F 07/31/18 20:00 Pulse 85 08/01/18 05:17 Resp 16 07/31/18 20:00 BP 126/77 08/01/18 05:17 Pulse Ox 100 07/31/18 20:00 Weight - Most Recent: 58.06 kg Lab Results Last 24 Hours: Laboratory Results - last 24 hr 08/01/18 Range/Units 06:00 WBC 18.2 H (5.0-10.0) 10^3/uL RBC 3.33 L (4.2-5.4) 10^6/uL Hgb 10.5 L D (12.0-16.0) g/dL Hct 31.2 L (37.0-47.0) % MCV 93.7 (80-100) fL MCH 31.5 (27.0-34.0) pg MCHC 33.7 (33.0-35.0) g/dL Plt Count 219 (150-450) 10^3/uL Med Orders - Current: Current Medications Acetaminophen (Tylenol) 650 mg PO Q4HR PRN PRN Reason: Pain (Mild 1-3) and fever Last Admin: 08/01/18 04:53 Dose: 650 mg Benzocaine/Menthol (Dermoplast Pain Relief Shorter) 0 gm TOP Q4H PRN PRN Reason: Perineal comfort measures Last Admin: 07/31/18 18:18 Dose: 1 spray Carboprost Tromethamine (Hemabate Ds) 250 mcg IM ASDIRECTED PRN PRN Reason: Excessive vaginal bleeding Docusate Sodium (Colace) 100 mg PO BID PRN PRN Reason: Constipation Last Admin: 08/01/18 00:31 Dose: 100 mg Oxytocin/Sodium Chloride (Pitocin In Ns 30 Unit/500 Ml) 30 unit in 500 mls @ 2 mls/hr IV TITRATE GENI; Protocol Last Titration: 07/31/18 17:00 Dose: Infused Lactated Ringer's (Ringers, Lactated) 1,000 mls @ 125 mls/hr IV ASDIRECTED GENI Oxytocin/Sodium Chloride (Pitocin In Ns 30 Unit/500 Ml) 30 unit in 500 mls @ 2 mls/hr IV TITRATE GENI; Protocol Tranexamic Acid 1,000 mg/ (Sodium Chloride) 110 mls @ 660 mls/hr IV ONETIME PRN PRN Reason: Bleeding Tranexamic Acid 1,000 mg/ (Sodium Chloride) 110 mls @ 660 mls/hr IV ONETIME PRN PRN Reason: Bleeding Ibuprofen (Motrin) 800 mg PO Q8H PRN PRN Reason: Mild Pain or Fever Lidocaine HCl (Xylocaine-Mpf 1%) 30 ml INJECT ASDIRECTED PRN PRN Reason: Perineal Repair Last Admin: 07/31/18 15:25 Dose: 30 ml Methylergonovine Maleate (Methergine) 0.2 mg IM ASDIRECTED PRN PRN Reason: Hemorrhage Misoprostol (Cytotec) 800 mcg RECTAL ASDIRECTED PRN PRN Reason: Hemorrhage Misoprostol (Cytotec) 800 mcg RECTAL ONETIME PRN PRN Reason: Hemorrhage Nalbuphine HCl (Nubain) 20 mg IM ONETIME PRN PRN Reason: Pain Last Admin: 07/31/18 09:12 Dose: 20 mg Ondansetron HCl (Zofran) 4 mg IV Q4HR PRN PRN Reason: Nausea/Vomiting Last Admin: 07/31/18 12:33 Dose: 4 mg Oxytocin (Pitocin) 10 unit IM ONETIME PRN PRN Reason: Bleeding Prenat Multivit/[place]/Iron/Folic Ac ( Plus Iron) 1 each PO DAILY [facility] Simethicone (Simethicone) 80 mg PO Q4H PRN PRN Reason: Gas Sodium Chloride (Saline Flush) 10 ml FLUSH ASDIRECTED PRN PRN Reason: Keep Vein Open Sodium Chloride (Saline Flush) 10 ml FLUSH ASDIRECTED PRN PRN Reason: Keep Vein Open Zolpidem Tartrate (Ambien) 5 mg PO BEDTIME PRN PRN Reason: Insomnia Discontinued Medications Acetaminophen (Tylenol) 650 mg PO Q6H PRN PRN Reason: mild pain or fever Carboprost Tromethamine (Hemabate Ds) 250 mcg IM ASDIRECTED PRN PRN Reason: HEMORRHAGE Epinephrine HCl (Adrenalin) Confirm Administered Dose 1 mg .ROUTE .STK-MED ONE Stop: 07/31/18 12:43 Last Admin: 07/31/18 14:13 Dose: Not Given Fentanyl (Sublimaze) Confirm Administered Dose 100 mcg .ROUTE .STK-MED ONE Stop: 07/31/18 12:43 Last Admin: 07/31/18 14:13 Dose: Not Given Lactated Ringer's (Ringers, Lactated) 1,000 mls @ 125 mls/hr IV ASDIRECTED [facility] Last Admin: 07/31/18 12:45 Dose: 125 mls/hr Penicillin G Potassium 5 (millunits/ Sodium Chloride) 100 mls @ 200 mls/hr IV ONETIME ONE Stop: 07/31/18 01:44 Last Admin: 07/31/18 01:45 Dose: 200 mls/hr Penicillin G Potassium 3 (millunits/ Sodium Chloride) 100 mls @ 200 mls/hr IV Q4H [facility] Last Admin: 07/31/18 14:05 Dose: 200 mls/hr Lactated Ringer's (Ringers, Lactated) 500 mls @ 999 mls/hr IV .BOLUS ONE Stop: 07/31/18 09:30 Last Admin: 07/31/18 12:10 Dose: 999 mls/hr Sodium Bicarbonate (Sodium Bicarbonate 4.2%) Confirm Administered Dose 0.5 meq .ROUTE .STK-MED ONE Stop: 07/31/18 12:44 Last Admin: 07/31/18 14:13 Dose: Not Given Sufentanil Citrate (Sufenta) Confirm Administered Dose 50 mcg .ROUTE .STK-MED ONE Stop: 07/31/18 12:43 Last Admin: 07/31/18 14:13 Dose: Not Given - Problem List Review Problem List Initiated/Reviewed/Updated: Yes - My Orders Last 24 Hours: My Active Orders 07/31/18 19:45 Insert Urinary Catheter [OM.PC] Q24H
[2018-08-01] MEDS ORDERED: Sodium Bicarbonate 4.2% 2.5 MEQ/5 ML SDV ONE (10:42)
[2018-08-01] MEDS ORDERED: fentaNYL 100 MCG/2 ML SDV ITHECAL ONE (10:42)
[2018-08-01] MEDS ORDERED: EPINEPHrine 1 MG/ML SDV ONE (10:42)
[2018-08-01] MEDS: Prenatal Multivitamin with Calcium/Folic Acid/Iron Tab PO SCH (10:45)
--- NOTE | 2018-08-01 11:09 | PN ---
DATE: 08/01/2018 SUBJECTIVE: The patient is a 22-year-old, 1, para 0, now para 1, who delivered, who is day #1 from a vacuum assisted vaginal delivery to a term female at 30 weeks and 2 days' gestation. Overnight, the patient is doing well overall. She does complain of some mild headaches, nausea, and back pain as well as being sore after labor. She does report minimal cramping. She also endorses good activity up as tolerated along with appropriate tolerating general diet, and urinating well. She is also passing flatus. The patient has no other concern at this time. OBJECTIVE: Vital Signs: Temp 98.3 degrees Fahrenheit, HR 85 bpm, BP 126/77 mmHg, RR 16 breaths per minute, and O2 saturation 100% on room air. General: Alert, cooperative, in no acute distress. HEENT: Grossly normal. Cardiovascular: Regular rate and rhythm. No murmurs noted. Pulmonary: Lungs are clear to auscultation bilaterally. Abdomen: Soft, nondistended, normoactive bowel sounds. The patient is tender to palpation in lower abdomen. Uterine fundus palpated 2 cm below umbilicus and firm. Extremities: No edema noted in lower extremities bilaterally. No calf tenderness to palpation on extremities bilaterally. Skin: No bruising. No rashes noted. Neurologic: Grossly normal. LABORATORY DATA: Recent Lab Results: Hematology: WBC 18.2, RBC 3.33, hemoglobin 10.5, hematocrit 31.2, platelet count 219. ASSESSMENT: The patient is a 22-year-old, 1, now para 1 female, day #1 from vacuum assisted vaginal delivery. The patient is doing well. PLAN: 1. Continue routine cares. 2. Formula feeding. The patient was seen and evaluated today by myself and Dr. Chip Guzman. Assessment and plan are under advisement of Dr. Guzman. seen and agreed-[facility] /[id number] SUSI
--- NOTE | 2018-08-01 11:24 | PN ---
DATE: 07/31/2018 SUBJECTIVE: Patient's contractions are getting stronger. She had Nubain approximately over 3 hours ago, requesting something else for pain. OBJECTIVE: heart tones in the 120s with accelerations noted. Tocometer reveals contractions every 1-1/2 to 3 minutes apart. Pitocin is at 14 milliunits per minute. Vaginal exam reveals to be 4 cm, 100% effaced, +1 to +2 station, vertex suspected, and continuing to leak clear fluid. ASSESSMENT AND PLAN: Intrauterine 38-2/7th weeks by 9-week ultrasound, admitted in labor with contractions with preeclampsia and GBS- positive status, now receiving penicillin in a G1, P0, currently in active labor with contractions, cervical change. At the patient's request, we will attempt to get her intrathecal for pain and follow clinically and closely. The patient understands and agrees with the above treatment plan. [facility] /[id number]
--- NOTE | 2018-08-01 11:42 | DEL ---
DATE: 07/31/2018 PREOPERATIVE DIAGNOSES: 1. Intrauterine at 38 and 2/7th weeks by 9-week ultrasound. 2. Contractions - labor upon admission. 3. Preeclampsia. 4. Group B Streptococcus positive - antibiotics given appropriately. 5. History of chlamydia, treated and negative thereafter on 05/29/2018. 6. History of positive urine drug screen for oxycodone on 05/16/2018, negative upon admission. 7. 1, para 0. POSTOPERATIVE DIAGNOSES: 1. Intrauterine at 38 and 2/7th weeks by 9-week ultrasound- delivered. 2. Contractions - labor upon admission. 3. Preeclampsia. 4. Group B Streptococcus positive - antibiotics given appropriately. 5. History of chlamydia, treated and negative thereafter on 05/29/2018. 6. History of positive urine drug screen for oxycodone on 05/16/2018, negative upon admission. 7. 1, para 0. 8. Second-degree perineal laceration - repaired. 9. Recurrent variable decelerations/intermittent bradycardia requiring vacuum assistance. PROCEDURES PERFORMED: NST followed by artificial rupture of membranes, Pitocin augmentation, and subsequent vacuum-assisted vaginal delivery with Kiwi vacuum with secondary perineal laceration - repaired. EN[employer]EVEL [employer]URING ENGINEER: Heather Olvera, MS-III. ANESTHESIA/ANALGESIA: The patient did receive an intrathecal during the first stage of labor. She did receive 1% lidocaine without epinephrine (10 mL for local repair with good anesthetic result). ESTIMATED BLOOD LOSS: 250 mL. FINDINGS: Male. scores 9 and 9, weight pending. SUMMARY OF EVENTS: The patient is a 22-year-old, G1, P0, intrauterine at 38 and 2/7th weeks by 9-week ultrasound, admitted with contractions with some cervical change, diagnosis of preeclampsia, required some augmentation, underwent the above procedures. She was found to be in the second stage of labor, and Heather and Rajan were called to the room. We donned sterile gown and gloves, and with the patient pushing, vertex descent was noted; however, there was some intermittent bradycardia as well as recurrent variable decelerations that were noted to be deep per nurses and by chart review. Subsequently, I did discuss with the patient using Kiwi vacuum. I did discuss with her the risks, benefits, alternatives, and complications of this as well as with her male partner, and they understood and agreed and wished to proceed, verbal consent was obtained. Prior to this, Ivan-type catheter was introduced and used and drained copious amounts of yellowish/clear-colored urine. Subsequently with next episode of contraction and pushing, vertex was seen splitting the labia. Kiwi vacuum was applied, pumped up to the green, and with contractions it was kept at the green with gentle pulling pressure while the patient pushed. Subsequently in between contraction, it was let down to the yellow region, one pop-off was noted after approximately 2 to 3 contractions. Thereafter, heart tone recovery was noted to be improved with no more significant decelerations. Subsequently, further descent was noted. The patient continued to push with contractions. Then with further contraction, there was noted to be some bradycardia. Decision was then made to proceed with Kiwi vacuum assisted vaginal delivery. This was reapplied to the vertex, which was seen splitting outside the labia approximately 2 cm. This was applied to the vertex, pumped up to the green, and with gentle pulling pressure with the patient pushing, vertex was delivered. Pump was disengaged and removed. vertex was in SUSAN presentation. Subsequently, anterior and posterior shoulder as well as the rest of the infant delivered without difficulty. Left hand was by left cheek. Mouth and nares were suctioned. Cord was doubly clamped and cut, and was resuscitated on mother's abdomen. Then, approximately 10 mL of cord blood was obtained for labs. Placenta was then delivered with gentle cord traction and fundal massage within 15 minutes. Perineum, vagina, and perirectal areas were then examined and noted to have a second-degree perineal laceration that was anesthetized and repaired in usual fashion using 3-0 Vicryl. No further tears were noted other than a left periurethral abrasion, nonbleeding, non-repaired after discussion with the patient. Mother and are currently stable at the time of dictation. [facility] /[id number]
--- NOTE | 2018-08-01 12:25 | OBOUT ---
DATE: 07/31/2018 DATE AND TIME OF NST: Date: 07/31/2018. Time: 1:32 to 1:52. REASON FOR NST: 1. Intrauterine at 38 and 2/7 weeks by 9-week ultrasound. 2. Contractions. 3. Preeclampsia. 4. GBS-positive. 5. History of chlamydia treated and negative thereafter on 05/29/2018. 6. History of positive urine drug screen for oxycodone on 05/16/2018, negative upon admission. 7. 1, para 0. NST INTERPRETATION: During this time period, heart tone baseline is approximately 140 and there are at least two 15 x 15 beat per minute accelerations, making this strip reactive. It is also noted to be reassuring. Tocometer is difficult to read for contractions, but does show contractions. Prior to this blood pressure was 142/92, and prior to that 140/93 with heart rate 73 to 79. ASSESSMENT/PLAN: 1. Nonstress test, reactive and reassuring. 2. Tocometer with contractions, difficult to read. PLAN: Please see history and physical done in conjunction with Heather Olvera MS-III, seen and agreed. For this records were called for, reviewed, summarized, and supplemented by patient's history as well as review of systems fully reviewed and felt to be only contributory for contractions. Labs upon admission do reveal white cell count 15.2, hemoglobin 13.9, platelets 267, uric acid 5.1. AST, ALT, and BUN are within normal limits. Protein- creatinine ratio 0.30 and urine drug screen negative. Due to patient's preeclampsia, the patient was followed closely, had no cervical change with her contractions with initial evaluation by nurse. Pitocin was started thereafter. The patient was followed closely thereafter. Please see further details. At current time of dictation, no signs or symptoms of severe preeclampsia are noted at this point in time, and we will continue to follow and proceed with Pitocin augmentation. [facility] /[id number]
[2018-08-02] MEDS: Acetaminophen 325 MG Tab PO PRN ×2 (01:34→08:46)
[2018-08-02] MEDS: Prenatal Multivitamin with Calcium/Folic Acid/Iron Tab PO SCH (08:46)
[2018-08-02] MEDS: Docusate Sodium 100 MG Cap PO PRN (08:46)
[2018-08-02 08:56] VITALS: BP 119/76; PULSE 98
--- NOTE | 2018-08-03 09:42 | DISCH ---
ADMITTING DIAGNOSES: 1. Intrauterine at 38 weeks and 2 days' gestation by 9-week ultrasound. 2. Preeclampsia in late . 3. Group B streptococcus positive status. 4. History of chlamydial infection during , which has resolved. 5. History of oxycodone use in via positive drug screen. Negative on admission. 6. 1, para 0. DISCHARGE DIAGNOSES: 1. Intrauterine at 38 weeks and 2 days' gestation by 9-week ultrasound. 2. Preeclampsia in late . 3. Group B streptococcus positive status. 4. History of chlamydial infection, treated during . 5. History of oxycodone use with positive drug screen on 05/16/2018, negative on admission. 6. 1, now para 1. 7. Vacuum-assisted vaginal delivery due to recurrent variable decelerations of heart rate/ bradycardia. 8. Standard second-degree perineal laceration, repaired. BRIEF HISTORY: The patient is a 22-year-old, 1, now para 1 female, who presented at 38 weeks and 2 days' gestation for increased intensity and frequency of contractions. She reported contractions began on 07/30/2018, and she presented to Labor and Delivery around midnight of 07/31/2018. At that time, she was noted to have elevated blood pressures along with an elevated urine protein and a diagnosis of preeclampsia was made. She was followed for progression of expected labor. The patient experienced progression with cervical change and with the patient complete, began pushing. With descent, bradycardia was noted with contractions as well as variable deceleration, so use of Kiwi vacuum assistance occurred. presentation was in the SUSAN position, and a baby girl was delivered. The patient was dried, stimulated, and bulb suctioned. Cord was clamped and significant other cut the cord. Baby was placed on mother's chest for [id number]. scores were noted as 9 and 9 at 1 and 5 minutes respectively. A standard second-degree perineal laceration was visualized after delivery and was repaired in standard fashion. HOSPITAL COURSE: Good. The patient initially reported a moderate amount of lochia as well as lots of soreness and stiffness after delivery. The patient also reported experiencing a headache with mild nausea on day #1, which has since resolved. The patient is now ambulating well, tolerating general diet, urinating, and passing flatus. She reports minimal lochia and cramping. The patient has no concerns and is optimistic about discharging home. A referral was placed for Senior It Auditor, and the patient was seen. DISCHARGE CONDITION: Good. DISCHARGE PHYSICAL EXAMINATION: Vital Signs: Temp 98.8, HR 98 bpm, BP 119/76, RR 16 breaths per minute, and O2 saturation 99% on room air. General: Awake, alert, sitting in bed comfortably. HEENT: Grossly normal. Cardiovascular: Regular rate and rhythm. No murmurs noted. Mild tachycardia noted. Pulmonary: Lungs are clear to auscultation bilaterally. Abdomen: Soft, nontender, normoactive bowel sounds. Distention present. Uterine fundus palpated at the level of umbilicus. Extremities: No lower extremity edema noted. No calf tenderness to palpation. Neurologic: Grossly normal. LABORATORY DATA: Hematology: 1. WBC 18.2. 2. RBC 3.33. 3. Hemoglobin 10.5. 4. Hematocrit 31.2. 5. Platelet count 219. DISCHARGE MEDICATIONS: None prescribed. DISPOSITION: Home with family. FOLLOWUP: The patient was advised to follow up in clinic with Dr. Guzman on 08/04/2018. Due to hyperbilirubinemia, the patient was also advised to bring the child back to Labor and Delivery tomorrow before 10 a.m. for a repeat of serum bilirubin along with a weight check. The patient and significant other are in agreement with this plan. The patient was seen and evaluated today by myself and Dr. Shanell Harvey. Assessment, plan, and discharge evaluation were under advisement of Dr. Shanell Harvey. -Heather Olvera MS-III [facility] /[id number] Patient seen and examined. Agree with note as scribed on my behalf by SAMMIE Roland. -[facility] 08/12/18 0903 MTDD
== END 2018-08-02 11:30 | disposition home or self-care (01) | DRG 806 ==
LOC: DL.OBCHECK 00:39 → DL.OB 01:22 → OBSVTOIN 15:23 → DL.OB 15:23
PROVIDERS: ADMIT Family Medicine; ATTEND Family Medicine
PROC: 10D07Z6 Extraction of Products of Conception, Vacuum, Via Natural or Artificial Opening (ICD-10-PCS; principal; 2018-07-31)
PROC: 0KQM0ZZ Repair Perineum Muscle, Open Approach (ICD-10-PCS; 2018-07-31)
PROC: 4A1HXCZ Monitoring of Products of Conception, Cardiac Rate, External Approach (ICD-10-PCS; 2018-07-31)
DX: O76 Abnormality in fetal heart rate and rhythm complicating labor and delivery (principal); O14.93 Unspecified pre-eclampsia, third trimester; Z37.0 Single live birth; Z3A.38 38 weeks gestation of pregnancy; O70.1 Second degree perineal laceration during delivery; O99.820 Streptococcus B carrier state complicating pregnancy
CPT/HCPCS: 36415; 51701; 59409; 80305-QW; 82550; 82570; 83615; 84156; 84450; 84460; 84520; 84550; 85027; A9270-GY; J0171; J2001; J2300; J2405; J2540; J2590; J3010; J7050; J7120

== ENCOUNTER 2019-03-08 21:55 | Emergency (ER) | payer MEDICAID ==
[2019-03-08 22:06] VITALS: BP 117/81; PULSE 111
--- NOTE | 2019-03-08 23:44 | EDM.PDOC ---
ED HPI GENERAL MEDICAL PROBLEM - General Chief Complaint: Lower Extremity Injury/Pain Stated Complaint: HURT ANKLE Time Seen by Provider: 03/08/19 22:10 Source of Information: Reports: Patient History Limitations: Reports: No Limitations - History of Present Illness INITIAL COMMENTS - FREE TEXT/NARRATIVE: Pain left ankle/foot. Rolled approximately 2 pm , pain worse tonight. Unable to bear weight. States pressure from ice makes pain worse. 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: Musculoskeletal History: Reports: None Neurological History: Reports: None Psychiatric History: Reports: Depression, Suicide Attempt, Suicidal Ideation Endocrine/Metabolic History: Reports: None Hematologic History: Reports: None Immunologic History: Reports: None Oncologic (Cancer) History: Reports: None Dermatologic History: Reports: Eczema - Infectious Disease History Infectious Disease History: Reports: Chicken Pox - Past Surgical History Head Surgeries/Procedures: Reports: None HEENT Surgical History: Reports: Oral Surgery GI Surgical History: Reports: Cholecystectomy Social & Family History - Family History Family Medical History: Noncontributory - Tobacco Use Smoking Status *Q: Current Every Day Smoker Years of Tobacco use: 3 Packs/Tins Daily: 0.2 Second Hand Smoke Exposure: Yes - Caffeine Use Caffeine Use: Reports: Soda - Recreational Drug Use Recreational Drug Use: Yes Drug Use in Last 12 Months: Yes Recreational Drug Type: Reports: Marijuana/Hashish - Sexual History Sexual History: Reports: Sexually Active - Living Situation & Occupation Living situation: Reports: with Family Review of Systems - Review of Systems Review Of Systems: ROS reveals no pertinent complaints other than HPI. ED EXAM, GENERAL - Physical Exam Exam: See Below Exam Limited By: No Limitations General Appearance: Alert, Mild Distress Eye Exam: Bilateral Eye: EOMI Ears: Normal External Exam, Hearing Grossly Normal Nose: Normal Inspection Throat/Mouth: Normal Inspection Head: Atraumatic, Normocephalic Respiratory/Chest: No Respiratory Distress Cardiovascular: Normal Peripheral Pulses Extremities: Other (mild swelling left ankle and forefoot, no bruising). No: Normal Range of Motion Neurological: Alert, Oriented Psychiatric: Normal Affect Skin Exam: Warm, Dry, Intact, Normal Color Course - Vital Signs Last Recorded V/S: Last Vital Signs Temp 98.3 F 03/08/19 22:00 Pulse 111 H 03/08/19 22:00 Resp 22 H 03/08/19 22:00 BP 117/81 03/08/19 22:00 Pulse Ox 96 03/08/19 22:00 - Radiology Interpretation Free Text/Narrative:: [facility] Final Radiology Report Call: [phone] assistance Online chat: [email or web address] Name: KELLY DEWITT Age: 23Years F Date: 03/08/2019 SSN: -- : [id number] Study: XR ANKLE 1 OR 2 VIEWS LEFT Requesting Physician: HUNTER ABARCA Images: 2 Addl Studies: Provided Clinical History: Contrast: Contrast Medium: Contrast Amount: Contrast Method: CONFIDENTIALITY STATEMENT This report is intended only for use by the referring physician, and only in accordance with law. If you received this in error, call [phone]. Page 1 of 1 PROCEDURE INFORMATION: Exam: XR Left Ankle Exam date and time: 03/08/2019 11:06 PM Clinical history: 23 years old, female; Other: Fell down stairs, pain TECHNIQUE: Imaging protocol: XR Left ankle. Views: 1 or 2 views. COMPARISON: No relevant prior studies available. FINDINGS: Bones/joints: Normal. No acute fracture. The ankle mortise is symmetric. Soft tissues: Normal. IMPRESSION: No acute findings. Thank you for allowing us to participate in the care of your patient. Dictated and Authenticated by: Bryce Wang MD 03/08/2019 11:37 PM Central Time ([place] & [place] Departure - Departure Time of Disposition: 23:42 Disposition: Home, Self-Care 01 Condition: Good Clinical Impression: Left ankle sprain Qualifiers: Encounter type: initial encounter Involved ligament of ankle: unspecified ligament Qualified Code(s): S93.402A - Sprain of unspecified ligament of left ankle, initial encounter - Discharge Information *PRESCRIPTION DRUG MONITORING PROGRAM REVIEWED*: No *COPY OF PRESCRIPTION DRUG MONITORING REPORT IN PATIENT DORI: No Instructions: Crutch Use, Adult, [id number] Referrals: Chip Guzman MD [Primary Care Provider] - Forms: ED Department Discharge Additional Instructions: alternate tylenol and ibuprofen every 4 hours as needed for discomfort crutches, weight bearing as tolerated clinic follow up one week ice, elevate, elvia wrap
== END 2019-03-08 23:48 | disposition home or self-care (01) ==
LOC: DL.ED 21:55
DX: S93.402A Sprain of unspecified ligament of left ankle, initial encounter (principal); F17.210 Nicotine dependence, cigarettes, uncomplicated; Z88.6 Allergy status to analgesic agent; X50.9XXA Other and unspecified overexertion or strenuous movements or postures, initial encounter
CPT/HCPCS: 73600-LT; 99283-25

== ENCOUNTER 2019-08-22 23:48 | Inpatient (IN) | payer MEDICAID, OTHER ==
[2019-08-23] MEDS ORDERED: Penicillin G Potassium 5 MILLUNITS in Sodium Chloride 0.9% 100 ML IV ONE (00:22)
[2019-08-23] MEDS: Lactated Ringers 1,000 ML IV SCH ×2 (00:35→02:51)
[2019-08-23] MEDS ORDERED: Methylergonovine 0.2 MG/1 ML Amp IM PRN (01:06)
[2019-08-23] MEDS ORDERED: Lactated Ringers 1,000 ML IV ONE (01:06)
[2019-08-23] MEDS ORDERED: Ondansetron 4 MG/2 ML SDV IVPUSH PRN (01:06)
[2019-08-23] MEDS ORDERED: Sodium Chloride 0.9% 10 ML Syringe FLUSH PRN ×2 (01:06→02:28)
[2019-08-23] MEDS ORDERED: Tranexamic Acid 1,000 MG in Sodium Chloride 0.9% 100 ML IV PRN (01:06)
[2019-08-23] MEDS ORDERED: Lidocaine 1% 30 ML SDV INJECT PRN (01:06)
[2019-08-23] MEDS ORDERED: Misoprostol 400 MCG (4 X 100 MCG TAB) RECTAL PRN (01:06)
[2019-08-23] MEDS ORDERED: Carboprost Tromethamine 250 MCG/1 ML Amp IM PRN (01:06)
[2019-08-23] MEDS ORDERED: Oxytocin/Normal Saline 30 UNIT/500 ML BAG IV SCH (01:15)
[2019-08-23] MEDS ORDERED: Lidocaine 1% 30 ML SDV ONE (01:22)
[2019-08-23] MEDS ORDERED: Methylergonovine 0.2 MG/1 ML Amp ONE (01:22)
[2019-08-23] MEDS ORDERED: Misoprostol 400 MCG (4 X 100 MCG TAB) ONE (01:22)
[2019-08-23] MEDS ORDERED: Carboprost Tromethamine 250 MCG/1 ML Amp ONE (01:22)
[2019-08-23] MEDS ORDERED: EPINEPHrine 1 MG/1 ML Amp ONE ×2 (01:27→01:28)
[2019-08-23] MEDS ORDERED: Sodium Chloride 0.9% 10 ML Syringe ONE ×2 (01:27→01:28)
--- NOTE | 2019-08-23 01:50 | PCM.PREANE ---
Preanesthetic Assessment - Procedure Proposed Procedure: Intrathecal Labor Analgesia - Anesthesia/Transfusion/Family Hx Anesthesia History: Prior Anesthesia Without Reaction Family History of Anesthesia Reaction: No Transfusion History: No Prior Transfusion(s) - Physical Assessment NPO Status Date: 08/22/19 NPO Status Time: 22:00 Vital Signs: stable. See nurses note ASA Class: 2E Thyro-Mental Finger Breadths: 4 Mouth Opening Finger Breadths: 3 - Lab Values: Laboratory Last Values WBC 16.2 10^3/uL (5.0-10.0) H 08/23/19 00:37 RBC 3.78 10^6/uL (4.2-5.4) L 08/23/19 00:37 Hgb 11.6 g/dL (12.0-16.0) L 08/23/19 00:37 Hct 34.1 % (37.0-47.0) L 08/23/19 00:37 MCV 90.2 fL (80-100) D 08/23/19 00:37 MCH 30.7 pg (27.0-34.0) 08/23/19 00:37 MCHC 34.0 g/dL (33.0-35.0) 08/23/19 00:37 Plt Count 249 10^3/uL (150-450) 08/23/19 00:37 SARS-CoV-2 RNA (RT-PCR) Negative (NEGATIVE) 08/23/19 00:24 - Allergies Allergies/Adverse Reactions: Allergies Allergy/AdvReac Type Severity Reaction Status Date / Time ibuprofen [From Motrin] Allergy Stomach Verified 03/08/19 22:06 Upset - Anesthesia Plan Free Text/Narrative:: SAB Pre-Op Medication Ordered: None - Acknowledgements Anesthesia Type Planned: Spinal Pt an Appropriate Candidate for the Planned Anesthesia: Yes Alternatives and Risks of Anesthesia Discussed w Pt/Guardian: Yes Pt/Guardian Understands and Agrees with Anesthesia Plan: Yes PreAnesthesia Questionnaire - Past Health History Medical/Surgical History: Denies Medical/Surgical History HEENT History: Reports: None Cardiovascular History: Reports: None Respiratory History: Reports: None Gastrointestinal History: Reports: Chronic Constipation, GERD Genitourinary History: Reports: 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: Musculoskeletal History: Reports: None Neurological History: Reports: None Psychiatric History: Reports: Depression, Suicide Attempt, Suicidal Ideation Endocrine/Metabolic History: Reports: None Hematologic History: Reports: None Immunologic History: Reports: None Oncologic (Cancer) History: Reports: None Dermatologic History: Reports: Eczema - Infectious Disease History Infectious Disease History: Reports: Chicken Pox - Past Surgical History Head Surgeries/Procedures: Reports: None HEENT Surgical History: Reports: Oral Surgery GI Surgical History: Reports: Cholecystectomy - HOME MEDS Home Medications: Home Meds Vits #93/Iron Fum/FA [ Formula Tablet] 1 tab PO DAILY 02/23/18 [History] - CURRENT (IN HOUSE) MEDS Current Meds: Current Medications Acetaminophen (Tylenol) 650 mg PO Q4H PRN PRN Reason: Pain (Mild 1-3) and fever Carboprost Tromethamine (Hemabate Ds) 250 mcg IM ASDIRECTED PRN PRN Reason: HEMORRHAGE Lactated Ringer's (Ringers, Lactated) 1,000 mls @ 500 mls/hr IV BOLUS ONE Stop: 08/23/19 03:05 Lactated Ringer's (Ringers, Lactated) 1,000 mls @ 125 mls/hr IV ASDIRECTED GENI Oxytocin/Sodium Chloride (Pitocin In Ns 30 Unit/500 Ml) 30 unit in 500 mls @ 2 mls/hr IV TITRATE GENI; Protocol Penicillin G Potassium 3 (millunits/ Sodium Chloride) 100 mls @ 200 mls/hr IV Q4H GENI Tranexamic Acid 1,000 mg/ (Sodium Chloride) 110 mls @ 660 mls/hr IV ONETIME PRN PRN Reason: Bleeding Lidocaine HCl (Xylocaine-Mpf 1%) 30 ml INJECT ASDIRECTED PRN PRN Reason: Perineal Repair Methylergonovine Maleate (Methergine) 0.2 mg IM ASDIRECTED PRN PRN Reason: Hemorrhage Misoprostol (Cytotec) 800 mcg RECTAL ASDIRECTED PRN PRN Reason: Hemorrhage Ondansetron HCl (Zofran) 4 mg IVPUSH Q4H PRN PRN Reason: Nausea/Vomiting Sodium Chloride (Saline Flush) 10 ml FLUSH ASDIRECTED PRN PRN Reason: Keep Vein Open Discontinued Medications Carboprost Tromethamine (Hemabate Ds) Confirm Administered Dose 250 mcg .ROUTE .STK-MED ONE Stop: 08/23/19 01:23 Epinephrine HCl (Adrenalin) Confirm Administered Dose 1 mg .ROUTE .STK-MED ONE Stop: 08/23/19 01:28 Penicillin G Potassium 5 (millunits/ Sodium Chloride) 100 mls @ 200 mls/hr IV ONETIME ONE Stop: 08/23/19 00:51 Last Admin: 08/23/19 00:43 Dose: 200 mls/hr Lidocaine HCl (Xylocaine-Mpf 1%) Confirm Administered Dose 30 ml .ROUTE .STK- MED ONE Stop: 08/23/19 01:23 Methylergonovine Maleate (Methergine) Confirm Administered Dose 0.2 mg .ROUTE .STK-MED ONE Stop: 08/23/19 01:23 Misoprostol (Cytotec) Confirm Administered Dose 400 mcg .ROUTE .STK-MED ONE Stop: 08/23/19 01:23 Sodium Chloride (Saline Flush) Confirm Administered Dose 10 ml .ROUTE .STK-MED ONE Stop: 08/23/19 01:28 Sufentanil Citrate (Sufenta) Confirm Administered Dose 50 mcg .ROUTE .STK-MED ONE Stop: 08/23/19 01:28
--- NOTE | 2019-08-23 01:54 | PCM.PRNOTE ---
- Free Text/Narrative Note: SAB PT id. Chart reviewed. VSS Room time 0131 Time out performed. Back prepped and draped NSF with betadine Lidocaine 1% skin wheal. L3/4 SAB times 1 with 24 ga +CSF No Heme No Parasthesia Marcaine 0.75% 0.8mL Epi wash Sufenta 20mcg Saline 0.9 % 0.6mL Pt tolerated procedure well. procedure complete 141
[2019-08-23] MEDS ORDERED: cefTRIAXone 1 GM in Sodium Chloride 0.9% 50 ML IV ONE (02:27)
[2019-08-23] MEDS ORDERED: Ibuprofen 800 MG Tab PO PRN (02:28)
[2019-08-23] MEDS ORDERED: Benzocaine/Menthol 20%-0.5% Spray 56 GM Canister TOP PRN (02:28)
[2019-08-23] MEDS ORDERED: Oxytocin 10 Units/1 ML SDV IM PRN (02:28)
[2019-08-23] MEDS ORDERED: Simethicone 80 MG Tab.Chew PO PRN (02:28)
[2019-08-23] MEDS ORDERED: Zolpidem 5 MG Tab PO PRN (02:28)
--- NOTE | 2019-08-23 02:29 | HP ---
PATIENT IDENTIFICATION: Jesus Alvares is a 24-year-old, G2, P1-0-0-1 interim at 37-2/7 weeks, confirmed with 7-/7-week ultrasound who presents with soraya. HISTORY OF PRESENT ILLNESS: The patient states contractions started on date of initial evaluation, 08/22/2019, in the evening. Started around later afternoon, evening it got worse around 11:30 p.m., severe enough to the point that they are coming on every couple of minutes. Time was making them worse and felt in the lower abdomen, rated 10/10. She denies any associated spotting, bleeding, or leaking. To put this in context, she was seen on 08/19/2019 with contractions and was noted to be 1.5 cm at that time. Quick initial evaluation with COVID testing per protocol was negative and the patient to be 3 cm upon initial evaluation, and then quickly progressed to 6 cm by the time COVID test returned negative. Records were called for, reviewed as below, and supplemented by patient history. [facility]: ABO blood type O positive, negative antibody. Rubella immune. Syphilis antibody nonreactive. Negative hepatitis B surface antigen, hep C, HIV, GC, and Chlamydia. One-hour GTT was 112 on 07/06/2019 with hemoglobin 12.1 and platelets 274 that day. On 08/19/2019, GBS was positive. ALLERGIES: Ibuprofen leads to nausea and vomiting, this is more of an intolerance. MEDICATIONS: vitamins daily. PAST MEDICAL HISTORY: Remarkable for chickenpox as a child. Chlamydia infection in the past, but negative during this . PAST SURGICAL HISTORY: Cholecystectomy in the past. FAMILY HISTORY: Cousin with cleft palate. Negative family history of anesthesia or bleeding problems. SOCIAL HISTORY: Lives in [facility]. Had been working at [employer] in the past. Positive urine drug screen for THC on 01/22/2019, and on evaluation earlier this week on 08/19/2019, was positive for oxycodone as well. She presents with [place]. This is her male partner. The patient denies any alcohol. Does smoke and has drug screens as above and is admitted to marijuana abuse in the past as well. REVIEW OF SYSTEMS: Quickly obtained and fully reviewed and felt to be noncontributory. OBJECTIVE: Vital Signs: To be updated list in [facility]. General Appearance: Female appears her stated age, breathing through contractions, but answering questions appropriately in between. Walking between the outpatient room and the room she is being admitted. She stopped twice to breathe through contractions. HEENT: Head is atraumatic. EOMs intact. PERRLA. No scleral icterus. No sore throat. Mucous membranes are moist. Neck: No obvious tenderness. Lungs: Clear to auscultation bilaterally. No increased work of breathing. Heart: S1, S2. Regular rate and rhythm. Abdomen: Gravid. Matt's indeterminate. Nontender, nondistended. Bowel sounds positive. No organomegaly, pulsatile masses, or hernias. No rebound, rigidity, or guarding. : Vaginal exam done by nurse revealed her to be 3 cm initially and then 6 cm within approximately an hour to hour and a half. With rapid progression of dilation, vertex was suspected by the nurse evaluation. Extremities: No peripheral edema. Deep tendon reflexes 3 to 4 out of 4 bilaterally and symmetric in lower extremities. Psychiatric: Mood and affect congruent. Judgment and insight intact. Skin: Without any cyanosis, clubbing, or jaundice. LABORATORY DATA: CBC reveals a white cell count 16.2, hemoglobin 11.6, platelets 249. Rapid [id number] RNA/PCR is negative. ASSESSMENT AND PLAN: 1. Intrauterine of 37-2/7 weeks, confirmed with 7-1/7-week ultrasound. 2. Active labor with advancing cervical dilation. The patient is requesting some for pain, specifically intrathecal. SPECIAL EDUCATION DIRECTOR has been called and awaiting his arrival. 3. GBS positive. As soon as the patient arrived, penicillin was called for and ordered over the nurse through the phone. At least 1 dose has been given at this point in time. 4. Positive urine drug screen for THC on 01/22/2019, and positive on 08/19/2019 was positive for THC and oxycodone. 5. G2, P1-0-0-1. PLAN: The patient will be admitted. Penicillin has been started immediately. SPECIAL EDUCATION DIRECTOR has been called for intrathecal and we will continue to follow clinically and closely at this point in time. The patient understands and agrees with the above treatment plan. [facility] /[id number] [facility]
[2019-08-23] MEDS: Acetaminophen 325 MG Tab PO PRN ×4 (03:09→23:12)
--- NOTE | 2019-08-23 04:32 | DEL ---
DATE:08/23/2019 PREOPERATIVE DIAGNOSES: 1. Intrauterine at 37 and 2/7 weeks, confirmed with 7 and 1/7 week's ultrasound. 2. Active labor with rapid advanced cervical dilation upon admit. 3. Group B Streptococcus positive. Penicillin x1 dose given prior to delivery. 4. Positive urine drug screen for THC on 01/22/2019 and for oxycodone and THC on 08/19/2019. 5. G2, P1-0-0-1. 6. Meconium-stained fluid with spontaneous rupture of membranes approximately 1:45 a.m. and delivery at 2:07 a.m. POSTOPERATIVE DIAGNOSES: 1. Intrauterine at 37 and 2/7 weeks, confirmed with 7 and 1/7 week's ultrasound, delivered. 2. Active labor with rapid advanced cervical dilation upon admit. 3. Group B Streptococcus positive. Penicillin x1 dose given prior to delivery. 4. Positive urine drug screen for THC on 01/22/2019 and for oxycodone and THC on 08/19/2019. 5. G2, P1-0-0-1. 6. Meconium-stained fluid with spontaneous rupture of membranes approximately 1:45 a.m. and delivery at 2:07 a.m. 7. hemorrhage with an EBL of 500 mL. 8. Retained placental membranes leading to the hemorrhage requiring bimanual exam with finger uterine curettage. PROCEDURE PERFORMED: NST followed by spontaneous vaginal delivery with bimanual finger uterine curettage with removal of placental membranes. ANESTHESIA/ANALGESIA: The patient did receive an intrathecal in the first stage of labor. FINDINGS: 1. Male, Apgars 8 and 9, weight 6 pounds 1.6 ounces (2770 g). 2. Retained placental membranes, diagnosed with hemorrhage and resolved and removed with bimanual exam with finger uterine curettage. EBL: 500 mL. SUMMARY OF EVENTS: The patient is a 24-year-old, G2, P1-0-0-1, intrauterine at 37 and 2/7 weeks, confirmed with 7 and 1/7 weeks ultrasound, presented in active labor with advancing cervical dilation. Due to her GBS positive status which was cultured earlier this week, penicillin was started immediately, she did receive 1 dose prior to delivery. cervix dilated from 3 cm to 6 cm within less than an hour to hour and a half. Received an intrathecal, and shortly after intrathecal had spontaneous rupture of membranes and with vaginal exam thereafter revealed her to be nearing the second stage of labor with meconium-stained fluid. This was discussed with the patient and male partner. The patient was then found to be in the second stage of labor with a variable decelerations. She started pushing with contractions and vertex was delivered in [place] presentation followed by anterior and posterior shoulder as well as rest of the infant without difficulty. Mouth and nares were suctioned. Cord was doubly clamped and cut, and the was brought over to team for resuscitation. Approximately 10 mL of cord blood was obtained for labs. Placenta was then delivered with gentle cord traction and fundal massage within 15 minutes. Thereafter, fundal massage ensued as well as Pitocin. There was excessive amount of bleeding and no atony noted. Therefore, decision was made to proceed with bimanual exam with finger uterine curettage and this was done with 3 passes revealing placental membranes that were curretaged for the 1st 2 passes and none thereafter with removal of clots from the lower uterine segment. Thereafter, bleeding slowed significantly. Perineum, vagina, perirectal areas were then examined without any tears or lacerations. The patient received Rocephin 1 g due to the bimanual exam, otherwise mother and infant are currently stable at time of dictation. [facility] /[id number] SUSI
[2019-08-23] MEDS ORDERED: Penicillin G Potassium 3 MILLUNITS in Sodium Chloride 0.9% 100 ML IV SCH (05:00)
[2019-08-23] MEDS: Prenatal Multivitamin with Calcium/Folic Acid/Iron Tab PO SCH (08:35)
[2019-08-23] MEDS: Docusate Sodium 100 MG Cap PO PRN ×2 (08:36→19:18)
--- NOTE | 2019-08-23 08:54 | PCM48HPAN ---
Post Anesthesia Note - EVALUATION WITHIN 48HRS OF ANESTHETIC Patient Participated in Evaluation: Yes Respiratory Function Stable: Yes Airway Patent: Yes Cardiovascular Function Stable: Yes Hydration Status Stable: Yes Pain Control Satisfactory: Yes Nausea and Vomiting Control Satisfactory: Yes Mental Status Recovered: Yes Vital Signs: Last Vital Signs Temp 98.5 F 08/23/19 08:00 Pulse 71 08/23/19 08:00 Resp 16 08/23/19 08:00 BP 116/54 L 08/23/19 08:00 Pulse Ox 99 08/23/19 08:00 - COMMENTS/OBSERVATIONS Free Text/Narrative:: Delivery 0207. Pain well controlled. Baby Apgars 8/9
[2019-08-24] MEDS: Acetaminophen 325 MG Tab PO PRN ×4 (05:45→22:05)
--- NOTE | 2019-08-24 08:51 | PN ---
DATE: 08/23/2019 SUBJECTIVE: The patient is comfortable status post her intrathecal. OBJECTIVE: heart tones in the 140s to 150s range. One acceleration seen. Tocometer every 2 minutes on average. Last blood pressure 118/71, heart rate 88. Prior to the vaginal exam, there was some clear fluid coming from the vaginal area and suspected spontaneous rupture of membranes. Vaginal exam, thereafter, revealed her to be 8 to 9 cm, 0 to +1 station, vertex suspected, and another bag of water broke during vaginal exam yielding copious amounts of meconium-stained fluid. ASSESSMENT AND PLAN: Intrauterine at 37-2/7 weeks, confirmed with 7- 1/7 week ultrasound with group B Streptococcus positive status. One dose of penicillin has been given with active labor with rapidly advancing cervical dilation, now status post intrathecal and with meconium-stained fluid as above. We will continue to follow clinically and closely. Did discuss with the patient and her male partner diagnosis, prognosis, and what we will be watching for in regard to the meconium-stained fluid. They understand and agree with the above treatment plan. [facility] /[id number]
--- NOTE | 2019-08-24 11:31 | PN ---
DATE: 08/24/2019 day #1. SUBJECTIVE: The patient is tolerating p.o., she is ambulating, urinating, passing flatus. PHYSICAL EXAMINATION: Vital Signs: Temperature 97.9, heart rate 73, blood pressure 124/82, respiratory rate 18. Lungs: Clear to auscultation bilaterally. Heart: S1 and S2. Regular rate and rhythm. Genitourinary: Firm uterus, -1 below umbilicus. Extremities: Trace pedal edema. No calf pain. LABORATORY DATA: Yesterday, white cell count 18.1, hemoglobin 10.4, platelets 222 compared to predelivery hemoglobin of 11.6 and white cell count of 16.2. ASSESSMENT AND PLAN: day #1, status post spontaneous vaginal delivery with bimanual and finger uterine curettage for retained placental membranes with hemorrhage, EBL of 500 mL. PLAN: We will continue to follow clinically and closely, watch for any signs or symptoms of infection, fever. Repeat a CBC tomorrow and possible discharge tomorrow. The patient understands and agrees with the above treatment plan. [facility] /[id number]
[2019-08-24] MEDS: Prenatal Multivitamin with Calcium/Folic Acid/Iron Tab PO SCH (11:59)
[2019-08-24] MEDS: Docusate Sodium 100 MG Cap PO PRN ×2 (11:59→20:51)
--- NOTE | 2019-08-24 17:25 | OBOUT ---
DATE: 08/22/2019 DATE AND TIME OF NST: 08/22/2019. Time: 2357 to 0017 on 08/23/2019. NST INTERPRETATION: During this time period, heart tone baseline is approximately 145 to 150 and there is at least one 15 x 15 beat per minute acceleration noted by my eyes with no evidence of significant decelerations and variability is adequate. Appears to be possibly 1 variable deceleration. Number of contractions during this time period approximately 7 felt by the patient and she is breathing through them. ASSESSMENT: Reassuring nonstress test, not strictly reactive, but further monitoring thereafter has revealed some other accelerations noted. Tocometer revealing contractions as above. OBJECTIVE: Vital Signs: Blood pressure 134/71, heart rate 81. The patient feels afebrile with temperature 98.3. Genitourinary: Vaginal exam: Initially 3 cm, 85%, -1 station per nurse. Approximately at 1:07, vaginal exam, showed she was 6 cm and suspected vertex per nurse. PLAN: Please see admit history and physical for further details. We will continue to follow clinically and closely at this point in time. [facility] /[id number]
[2019-08-25] MEDS: Prenatal Multivitamin with Calcium/Folic Acid/Iron Tab PO SCH (08:02)
[2019-08-25] MEDS: Acetaminophen 325 MG Tab PO PRN (08:02)
[2019-08-25] MEDS: Docusate Sodium 100 MG Cap PO PRN (08:02)
[2019-08-25 08:24] VITALS: BP 121/78; PULSE 85
--- NOTE | 2019-08-25 12:07 | DISCH ---
ADMIT DIAGNOSES: 1. Intrauterine at 37-2/7 weeks, confirmed with 7-1/7 weeks ultrasound. 2. Active labor with advancing cervical dilation upon admit. 3. GBS positive status (penicillin x1 dose given prior to delivery). 4. Positive urine drug screen for THC on 01/22/2019, and THC and oxycodone on 08/19/2019 as well as date of admission. 5. G2, P1-0-0-1. DISCHARGE DIAGNOSES: 1. Intrauterine at 37-2/7 weeks - delivered. 2. Active labor with advancing cervical dilation upon admit. 3. GBS positive status (penicillin x1 dose given prior to delivery). 4. Positive urine drug screen for THC on 01/22/2019, and THC and oxycodone on 08/19/2019 as well as date of admission. 5. G2, P1-0-0-1. 6. Meconium-stained fluid. 7. hemorrhage with EBL 500 mL. 8. Retained placental membranes requiring bimanual exam and finger uterine curettage for removal. 9. Anemia of acute blood loss, dropping down from 11.6 to 10.4 at its lowest. PROCEDURES PERFORMED: NST followed by spontaneous vaginal delivery with bimanual and finger uterine curettage of the uterus to remove placental membranes. Procedure performed by Chip Guzman MD. HISTORY OF PRESENT ILLNESS: Please see H and P. SUMMARY OF HOSPITAL COURSE: The patient was admitted on the above date with above diagnosis, in active labor with rapidly advancing cervical dilation. Penicillin was given immediately due to her GBS positive status. She subsequently went on to have a spontaneous vaginal delivery yielding a male, score of 8 and 9, weighing 6 pounds 1.6 ounces (2770 g). Meconium-stained fluid was noted. day #1, please see progress note. day #2, date of discharge, the patient was tolerating p.o., ambulating, urinating, passing flatus, and requesting discharge. DISCHARGE PHYSICAL EXAMINATION: Vital Signs: Last set of vitals updated and listed in chart; temperature 99.3, heart rate 73, blood pressure 117/65, respiratory rate 20. Lungs: Clear to auscultation bilaterally. Heart: S1 and S2. Regular rate and rhythm. Abdomen: Firm uterus -2 below the umbilicus. Extremities: Trace pedal edema. No calf pain. DISCHARGE LABORATORY DATA: White cell count 16, hemoglobin 10.6, platelets 285. CONDITION ON DISCHARGE COMPARED TO CONDITION ON ADMISSION: Improved. DISCHARGE INSTRUCTIONS: 1. Diet as tolerated. 2. Activity: No lifting more than 20 pounds. No sit-ups, straining, and pelvic rest for next 6 weeks with immediate return to fertility discussed with the patient. 3. Reasons to return or go to the emergency room was discussed with patient in detail, including, but not limited to, temperature greater than 100.4, foul- smelling discharge, red, hot, or tender breasts, or increased vaginal bleeding. DISCHARGE MEDICATIONS: 1. [id number] Tylenol or ibuprofen for pain. 2. Iron sulfate 325 b.i.d. x6 weeks. 3. vitamins x6 weeks. FOLLOWUP: 6 weeks . I did discuss with patient the importance of followup in regard to her infant as well as reasons to return or go to emergency room in regard to her baby as well. She understands and agrees with the above treatment plan. [facility] /[id number]
== END 2019-08-25 10:40 | disposition home or self-care (01) | DRG 806 ==
LOC: DL.OBCHECK 23:48 → DL.OB 08-23 01:00 → OBSVTOIN 08-23 02:07 → DL.MS 08-24 06:12
PROVIDERS: ADMIT Family Medicine; ATTEND Family Medicine
PROC: 10E0XZZ Delivery of Products of Conception, External Approach (ICD-10-PCS; principal; 2019-08-22)
PROC: 3E0R3BZ Introduction of Anesthetic Agent into Spinal Canal, Percutaneous Approach (ICD-10-PCS; 2019-08-22)
DX: O60.03 Preterm labor without delivery, third trimester (principal); O99.820 Streptococcus B carrier state complicating pregnancy; O99.824 Streptococcus B carrier state complicating childbirth; D62 Acute posthemorrhagic anemia; Z37.0 Single live birth; Z3A.37 37 weeks gestation of pregnancy; O99.02 Anemia complicating childbirth; O77.0 Labor and delivery complicated by meconium in amniotic fluid; O72.1 Other immediate postpartum hemorrhage; O99.324 Drug use complicating childbirth; F15.90 Other stimulant use, unspecified, uncomplicated; Z28.82 Immunization not carried out because of caregiver refusal
CPT/HCPCS: 36415; 80305-QW; 85027; A9270-GY; J0171; J0696; J2405; J2540; J2590; J7050; J7120; U0002

== ENCOUNTER 2019-10-01 12:19 | Emergency (ER) | payer MEDICAID ==
[2019-10-01] MEDS: Sodium Chloride 0.9% 10 ML Syringe FLUSH PRN (13:37)
--- NOTE | 2019-10-01 13:44 | EDM.PDOC ---
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 Wes Samson), RN, RN Notes Reviewed History Limitations: Reports: No Limitations - History of Present Illness INITIAL COMMENTS - FREE TEXT/NARRATIVE: G2, P2 s/p vaginal delivery on 08/23/19 presents with c/o onset of progressively worsening vaginal bleeding today with passage of clots the size of "a small potato". Pt reports recent mild fever sensations. Admits to pelvic cramping and low back pains. Denies N/V, lightheadedness, or syncope. Onset: Today Location: Reports: Pelvis Quality: Reports: Ache, Other (Cramping) Severity: Moderate Improves with: Reports: None Worsens with: Reports: None Associated Symptoms: Reports: No Other Symptoms - Related Data Allergies Allergy/AdvReac Type Severity Reaction Status Date / Time ibuprofen [From Motrin] Allergy Stomach Verified 10/01/19 12:45 Upset Home Meds: Home Meds Iron 18 mg PO DAILY 10/01/19 [History] Past Medical History - Past Health History Medical/Surgical History: Denies Medical/Surgical History HEENT History: Reports: None Cardiovascular History: Reports: None Respiratory History: Reports: None Gastrointestinal History: Reports: Chronic Constipation, GERD Genitourinary History: Reports: None 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: hx of preeclampsia Musculoskeletal History: Reports: None Neurological History: Reports: None Psychiatric History: Reports: Depression, Suicide Attempt, Suicidal Ideation Endocrine/Metabolic History: Reports: None Hematologic History: Reports: None Immunologic History: Reports: None Oncologic (Cancer) History: Reports: None Dermatologic History: Reports: Eczema - Infectious Disease History Infectious Disease History: Reports: Chicken Pox - Past Surgical History Head Surgeries/Procedures: Reports: None HEENT Surgical History: Reports: Oral Surgery GI Surgical History: Reports: Cholecystectomy Social & Family History - Family History Family Medical History: Noncontributory - Tobacco Use Smoking Status *Q: Current Every Day Smoker Years of Tobacco use: 5 Packs/Tins Daily: 0.5 - Caffeine Use Caffeine Use: Reports: Soda Other Caffeine Use: 3-4 sodas per day - Recreational Drug Use Recreational Drug Type: Reports: Marijuana/Hashish Recreational Drug Use Frequency: Weekly - Sexual History Sexual History: Reports: Sexually Active - Living Situation & Occupation Living situation: Reports: with Family ED ROS GENERAL - Review of Systems Review Of Systems: Comprehensive ROS is negative, except as noted in HPI. ED EXAM, RENAL/ - Physical Exam Exam: See Below Exam Limited By: No Limitations General Appearance: Alert, WD/WN, No Apparent Distress, Thin Eye Exam: Bilateral Eye: Normal Inspection (No scleral icterus) Nose: Normal Inspection, Normal Mucosa, No Blood Throat/Mouth: Normal Inspection, Normal Lips, Normal Teeth, Normal Gums, Normal Oropharynx, Normal Voice, No Airway Compromise Head: Atraumatic, Normocephalic Neck: Normal Inspection, Supple, Non-Tender, Full Range of Motion Respiratory/Chest: No Respiratory Distress, Lungs Clear, Normal Breath Sounds, No Accessory Muscle Use, Chest Non-Tender Cardiovascular: Normal Peripheral Pulses, Regular Rate, Rhythm, No Edema, No Gallop, No JVD, No Murmur, No Rub GI/Abdominal: Normal Bowel Sounds, Soft, No Organomegaly, No Distention, No Abnormal Bruit, No Mass, Tender (mild suprapubic tenderness). No: Guarding, Rigid, Rebound (Female) Exam: Deferred (Dr. Meyers present to do pelvic exam) Rectal (Female) Exam: Deferred Back Exam: Normal Inspection Extremities: Normal Inspection Neurological: Alert, Oriented, Normal Cognition, No Motor/Sensory Deficits Psychiatric: Normal Mood Skin Exam: Warm, Dry, Intact, Normal Color, No Rash. No: Ecchymosis, Jaundice, Petechiae Course - Vital Signs Last Recorded V/S: Last Vital Signs Temp 98.2 F 10/01/19 13:53 Pulse 64 10/01/19 13:53 Resp 16 10/01/19 13:53 BP 119/71 10/01/19 13:53 Pulse Ox 100 10/01/19 13:53 - Orders/Labs/Meds Orders: Active Orders 24 hr Category Date Time Status Peripheral IV Care [RC] . DIRECTED Care 10/01/19 13:36 Active CULTURE BLOOD [BC] Stat Lab 10/01/19 13:57 Received CULTURE BLOOD [BC] Stat Lab 10/01/19 14:15 Results Sodium Chloride 0.9% [Normal Saline] 1,000 ml Med 10/01/19 14:00 Active IV ASDIRECTED Sodium Chloride 0.9% [Saline Flush] Med 10/01/19 13:36 Active 10 ml FLUSH ASDIRECTED PRN Blood Culture x2 Reflex Set [OM.PC] Stat Oth 10/01/19 13:51 Ordered Peripheral IV Insertion Adult [OM.PC] Routine Oth 10/01/19 13:36 Ordered Medication Orders Sodium Chloride (Normal Saline) 1,000 mls @ 999 mls/hr IV ASDIRECTED GENI Last Admin: 10/01/19 13:51 Dose: 999 mls/hr Sodium Chloride (Saline Flush) 10 ml FLUSH ASDIRECTED PRN PRN Reason: Keep Vein Open Last Admin: 10/01/19 13:37 Dose: 10 ml Labs: Laboratory Tests 10/01/19 10/01/19 10/01/19 Range/Units 13:03 13:03 13:03 WBC 8.4 (5.0-10.0) 10^3/uL RBC 4.76 (4.2-5.4) 10^6/uL Hgb 13.9 D (12.0-16.0) g/dL Hct 43.1 (37.0-47.0) % MCV 90.5 (80-100) fL MCH 29.2 (27.0-34.0) pg MCHC 32.3 L (33.0-35.0) g/dL Plt Count 219 (150-450) 10^3/uL Neut % (Auto) 68.3 (42.2-75.2) % Lymph % (Auto) 21.0 (20.5-50.1) % Addison % (Auto) 8.6 H (2-8) % Eos % (Auto) 1.7 (1.0-3.0) % Baso % (Auto) 0.4 (0.0-1.0) % Sodium 141 (136-145) mmol/L Potassium 4.3 (3.5-5.1) mmol/L Chloride 103 (98-107) mmol/L Carbon Dioxide 30 (21-32) mmol/L Anion Gap 12.3 (7-13) mEq/L BUN 9 (7-18) mg/dL Creatinine 0.98 (0.55-1.02) mg/dL Est Cr Clr Drug Dosing 76.08 mL/min Estimated GFR (MDRD) > 60 BUN/Creatinine Ratio 9.2 (No establ ref range) Glucose 81 (74-99) mg/dL Lactic Acid (0.4-2.0) mmol/L Calcium 8.7 (8.5-10.1) mg/dL Total Bilirubin 0.4 (0.2-1.0) mg/dL AST 28 (15-37) U/L ALT 28 (14-59) U/L Alkaline Phosphatase 126 H (46-116) U/L Total Protein 6.5 (6.4-8.2) g/dL Albumin 3.6 (3.4-5.0) g/dL Globulin 2.9 Albumin/Globulin Ratio 1.2 HCG, Qual Negative 10/01/19 Range/Units 13:57 WBC (5.0-10.0) 10^3/uL RBC (4.2-5.4) 10^6/uL Hgb (12.0-16.0) g/dL Hct (37.0-47.0) % MCV (80-100) fL MCH (27.0-34.0) pg MCHC (33.0-35.0) g/dL Plt Count (150-450) 10^3/uL Neut % (Auto) (42.2-75.2) % Lymph % (Auto) (20.5-50.1) % Addison % (Auto) (2-8) % Eos % (Auto) (1.0-3.0) % Baso % (Auto) (0.0-1.0) % Sodium (136-145) mmol/L Potassium (3.5-5.1) mmol/L Chloride (98-107) mmol/L Carbon Dioxide (21-32) mmol/L Anion Gap (7-13) mEq/L BUN (7-18) mg/dL Creatinine (0.55-1.02) mg/dL Est Cr Clr Drug Dosing mL/min Estimated GFR (MDRD) BUN/Creatinine Ratio (No establ ref range) Glucose (74-99) mg/dL Lactic Acid 0.7 (0.4-2.0) mmol/L Calcium (8.5-10.1) mg/dL Total Bilirubin (0.2-1.0) mg/dL AST (15-37) U/L ALT (14-59) U/L Alkaline Phosphatase (46-116) U/L Total Protein (6.4-8.2) g/dL Albumin (3.4-5.0) g/dL Globulin Albumin/Globulin Ratio HCG, Qual Meds: Medications Generic Name Dose Route Start Last Admin Trade Name Freq PRN Reason Stop Dose Admin Sodium Chloride 1,000 mls @ 999 mls/hr 10/01/19 14:00 10/01/19 13:51 Normal Saline IV 999 mls/hr ASDIRECTED GENI Administration Sodium Chloride 10 ml 10/01/19 13:36 10/01/19 13:37 Saline Flush FLUSH 10 ml ASDIRECTED PRN Administration Keep Vein Open - Radiology Interpretation Free Text/Narrative:: See US report. - Re-Assessments/Exams Free Text/Narrative Re-Assessment/Exam: 10/01/19 14:08 Dr. Harvey evaluates pt in ER with Dr. Meyers for consideration of D&C. US and labs pending. Departure - Departure Time of Disposition: 14:55 Disposition: Home, Self-Care 01 Condition: Good Clinical Impression: bleeding Qualifiers: hemorrhage type: unspecified Qualified Code(s): O72.1 - Other immediate hemorrhage - Discharge Information *PRESCRIPTION DRUG MONITORING PROGRAM REVIEWED*: Not Applicable *COPY OF PRESCRIPTION DRUG MONITORING REPORT IN PATIENT DORI: Not Applicable Instructions: Hemorrhage Forms: ED Department Discharge Additional Instructions: Rx: Augmentin 875mg Rx: Flagyl 500mg Follow up in clinic as instructed by Dr. Harvey. Return to ER if worse at any time. Sepsis Event Note - Evaluation Sepsis Screening Result: No Definite Risk - Focused Exam Vital Signs: Vital Signs Temp Pulse Resp BP Pulse Ox 10/01/19 13:53 98.2 F 64 16 119/71 100 10/01/19 12:39 98.2 F 86 16 120/72 99 Date Exam was Performed: 10/01/19 Time Exam was Performed: 14:54 - My Orders Last 24 Hours: My Active Orders 10/01/19 13:51 Blood Culture x2 Reflex Set [OM.PC] Stat 10/01/19 13:57 CULTURE BLOOD [BC] Stat 10/01/19 14:15 CULTURE BLOOD [BC] Stat - Assessment/Plan Last 24 Hours: My Active Orders 10/01/19 13:51 Blood Culture x2 Reflex Set [OM.PC] Stat 10/01/19 13:57 CULTURE BLOOD [BC] Stat 10/01/19 14:15 CULTURE BLOOD [BC] Stat
[2019-10-01] MEDS: Sodium Chloride 0.9% 1,000 ML IV SCH (13:51)
[2019-10-01 13:54] VITALS: BP 119/71; PULSE 64
[2019-10-01 14:08] LABS: ANION GAP 12.3 mEq/L (7-13); CHLORIDE,CL 103 mmol/L (98-107); SODIUM,NA 141 mmol/L (136-145)
[2019-10-01] MEDS ORDERED: Tranexamic Acid 1,000 MG in Sodium Chloride 0.9% 100 ML IV ONE (15:00)
--- NOTE | 2019-10-01 15:03 | US ---
EXAMINATION: Pelvis Non OB Comp SEX: Female AGE: 24 years CLINICAL HISTORY: A 24-year-old (vaginal delivery 23 August 2019) female with fever and vaginal bleeding with "clots". INTERPRETATION: Negative pelvic sonogram. 1. Midline uterus normal size and anatomic configuration measures 7.89 cm L x 3.98 cm AP x 5.77 cm W and has a normal 3 mm thin central endometrial "stripe". 2. No retained products of conception. 3. Homogeneous normal myometrial blood flow. No indication of myometritis or myometrial mass lesion. 4. No adnexal mass lesion. Symmetric normal-appearing ovaries. Right ovary measures 1.96 x 1.25 x 1.61 cm. Left ovary measures 2.14 x 1.62 1.30 cm. 5. No free fluid in the cul-de-sac.
--- NOTE | 2019-10-01 16:39 | PCM.CONS ---
H&P History of Present Illness - General Date of Service: 10/01/19 Admit Problem/Dx: Vaginal bleeding - History of Present Illness Initial Comments - Free Text/Narative: Patient is a 24 year old female about 5 weeks post from an who presented to the ER for vaginal bleeding. She reports a normal but delivery was complicated by retained products that had to be removed manually and post hemorrhage with EBL 500 cc. Her hemoglobin remained stable and the rest of her stay was uneventful. She had normal lochia that stopped a little over a week ago. Her bleeding started suddenly yesterday and she started passing large clots overnight. Clots are "potato size". She's starting to feel more lightheaded. She's had lower pelvic cramping that is getting worse. Denies any sexual activity since her delivery. Denies fever or chills. Denies nausea and vomiting. 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 OB/BYN History: hx of preeclampsia Musculoskeletal History: Reports: None Neurological History: Reports: None Psychiatric History: Reports: Depression, Suicide Attempt, Suicidal Ideation Endocrine/Metabolic History: Reports: None Hematologic History: Reports: None Immunologic History: Reports: None Oncologic (Cancer) History: Reports: None Dermatologic History: Reports: Eczema - Infectious Disease History Infectious Disease History: Reports: Chicken Pox - Past Surgical History Head Surgeries/Procedures: Reports: None HEENT Surgical History: Reports: Oral Surgery GI Surgical History: Reports: Cholecystectomy Social & Family History - Family History Family Medical History: Noncontributory - Tobacco Use Smoking Status *Q: Current Every Day Smoker Years of Tobacco use: 5 Packs/Tins Daily: 0.5 - Caffeine Use Caffeine Use: Reports: Soda Other Caffeine Use: 3-4 sodas per day - Recreational Drug Use Recreational Drug Type: Reports: Marijuana/Hashish Recreational Drug Use Frequency: Weekly - Sexual History Sexual History: Reports: Sexually Active - Living Situation & Occupation Living situation: Reports: with Family H&P Review of Systems - Review of Systems: Review Of Systems: See Below General: Denies: Fever, Chills, Weakness HEENT: Denies: Visual Changes Pulmonary: Denies: Shortness of Breath Cardiovascular: Reports: Lightheadedness. Denies: Chest Pain Gastrointestinal: Reports: Abdominal Pain. Denies: Constipation, Diarrhea, Nausea, Vomiting Genitourinary: Reports: Pain. Denies: Dysuria Skin: Denies: Pallor Neurological: Reports: Dizziness. Denies: Headache, Numbness, Paresthesia, Weakness Hematologic/Lymphatic: Reports: Anemia. Denies: Easy Bleeding Exam - Exam Exam: See Below - Vital Signs Vital Signs: Last Vital Signs Temp 98.2 F 10/01/19 13:53 Pulse 64 10/01/19 13:53 Resp 16 10/01/19 13:53 BP 119/71 10/01/19 13:53 Pulse Ox 100 10/01/19 13:53 Weight: 119 lb - Exam General: Alert, Oriented HEENT: Conjunctiva Clear Neck: Supple Lungs: Clear to Auscultation, Normal Respiratory Effort Cardiovascular: Regular Rate, Regular Rhythm, Normal S1, Normal S2 GI/Abdominal Exam: Soft, No Organomegaly, No Distention, Tender (Across lower abdomen) (Female) Exam: Uterine Tenderness, Vaginal Bleeding (Moderate amount of blood in the vault with multple quarter to silver dollar sized clots. Os is dilated and a hook was passed through the os but no clots were extracted.). No : Products of Conception, Vaginal Lesions Extremities: Normal Capillary Refill. No: Non-Tender, No Pedal Edema Skin: Warm, Dry - Patient Data Lab Results Last 24 hrs: Laboratory Results - last 24 hr 10/01/19 10/01/19 10/01/19 Range/Units 13:03 13:03 13:03 WBC 8.4 (5.0-10.0) 10^3/uL RBC 4.76 (4.2-5.4) 10^6/uL Hgb 13.9 D (12.0-16.0) g/dL Hct 43.1 (37.0-47.0) % MCV 90.5 (80-100) fL MCH 29.2 (27.0-34.0) pg MCHC 32.3 L (33.0-35.0) g/dL Plt Count 219 (150-450) 10^3/uL Neut % (Auto) 68.3 (42.2-75.2) % Lymph % (Auto) 21.0 (20.5-50.1) % [place] % (Auto) 8.6 H (2-8) % Eos % (Auto) 1.7 (1.0-3.0) % Baso % (Auto) 0.4 (0.0-1.0) % Sodium 141 (136-145) mmol/L Potassium 4.3 (3.5-5.1) mmol/L Chloride 103 (98-107) mmol/L Carbon Dioxide 30 (21-32) mmol/L Anion Gap 12.3 (7-13) mEq/L BUN 9 (7-18) mg/dL Creatinine 0.98 (0.55-1.02) mg/dL Est Cr Clr Drug Dosing 76.08 mL/min Estimated GFR (MDRD) > 60 BUN/Creatinine Ratio 9.2 (No establ ref range) Glucose 81 (74-99) mg/dL Lactic Acid (0.4-2.0) mmol/L Calcium 8.7 (8.5-10.1) mg/dL Total Bilirubin 0.4 (0.2-1.0) mg/dL AST 28 (15-37) U/L ALT 28 (14-59) U/L Alkaline Phosphatase 126 H (46-116) U/L Total Protein 6.5 (6.4-8.2) g/dL Albumin 3.6 (3.4-5.0) g/dL Globulin 2.9 Albumin/Globulin Ratio 1.2 HCG, Qual Negative 10/01/19 Range/Units 13:57 WBC (5.0-10.0) 10^3/uL RBC (4.2-5.4) 10^6/uL Hgb (12.0-16.0) g/dL Hct (37.0-47.0) % MCV (80-100) fL MCH (27.0-34.0) pg MCHC (33.0-35.0) g/dL Plt Count (150-450) 10^3/uL Neut % (Auto) (42.2-75.2) % Lymph % (Auto) (20.5-50.1) % [place] % (Auto) (2-8) % Eos % (Auto) (1.0-3.0) % Baso % (Auto) (0.0-1.0) % Sodium (136-145) mmol/L Potassium (3.5-5.1) mmol/L Chloride (98-107) mmol/L Carbon Dioxide (21-32) mmol/L Anion Gap (7-13) mEq/L BUN (7-18) mg/dL Creatinine (0.55-1.02) mg/dL Est Cr Clr Drug Dosing mL/min Estimated GFR (MDRD) BUN/Creatinine Ratio (No establ ref range) Glucose (74-99) mg/dL Lactic Acid 0.7 (0.4-2.0) mmol/L Calcium (8.5-10.1) mg/dL Total Bilirubin (0.2-1.0) mg/dL AST (15-37) U/L ALT (14-59) U/L Alkaline Phosphatase (46-116) U/L Total Protein (6.4-8.2) g/dL Albumin (3.4-5.0) g/dL Globulin Albumin/Globulin Ratio HCG, Qual Result Diagrams: 10/01/19 13:03 10/01/19 13:03 Efra Results Last 24 hrs: Microbiology 10/01/19 14:15 Anaerobic Blood Culture - Final Blood - Venous - Lab Draw Sepsis Event Note - Evaluation Sepsis Screening Result: No Definite Risk - Focused Exam Vital Signs: Vital Signs Temp Pulse Resp BP Pulse Ox 10/01/19 13:53 98.2 F 64 16 119/71 100 10/01/19 12:39 98.2 F 86 16 120/72 99 Date Exam was Performed: 10/01/19 Time Exam was Performed: 16:31 Consult PN Assessment/Plan Procedures: Procedures ASSAY OF ACETAMINOPHEN (10/27/13) ASSAY OF AMMONIA (01/06/17) ASSAY OF AMYLASE (01/06/17) ASSAY OF ETHANOL (10/27/13) ASSAY OF FIBRONECTIN (05/16/18) ASSAY OF LACTIC ACID (12/04/16) ASSAY OF LIPASE (01/06/17) ASSAY OF MAGNESIUM (01/06/17) ASSAY OF TROPONIN QUANT (01/06/17) CHEST X-RAY 2VW FRONTAL&LATL (12/04/16) CHORIONIC GONADOTROPIN ASSAY (01/06/17) COMPLETE CBC W/AUTO DIFF WBC (01/06/17) COMPREHEN METABOLIC PANEL (01/06/17) CT ABD & PELV W/CONTRAST (01/06/17) CT ABD & PELVIS W/O CONTRAST (12/04/16) CT HEAD/BRAIN W/O DYE (01/06/17) CT NECK SPINE W/O DYE (01/06/17) CULTURE AEROBIC IDENTIFY (08/19/19) CULTURE SCREEN ONLY (08/19/19) DRUG TEST PRSMV DIR OPT OBS (08/19/19) ELECTROCARDIOGRAM TRACING (12/06/16) EMERGENCY DEPT VISIT (03/08/19) EMERGENCY DEPT VISIT (03/08/19) EMERGENCY DEPT VISIT (03/27/18) EMERGENCY DEPT VISIT (03/27/18) EMERGENCY DEPT VISIT (02/23/18) EMERGENCY DEPT VISIT (01/06/17) EMERGENCY DEPT VISIT (12/04/16) EMERGENCY DEPT VISIT (10/11/16) EMERGENCY DEPT VISIT (10/11/16) EMERGENCY DEPT VISIT (07/29/16) EMERGENCY DEPT VISIT (11/01/15) EMERGENCY DEPT VISIT (08/25/13) NON-STRESS TEST (05/16/18) FIBRIN DEGRADATION QUANT (12/04/16) GLUCOSE BLOOD TEST (02/23/18) HEPATOBIL SYST IMAGE W/DRUG (04/06/14) HYDRATION IV INFUSION INIT (12/06/16) MICROBE SUSCEPTIBLE EFRA (08/19/19) PROTHROMBIN TIME (12/06/16) ROUTINE VENIPUNCTURE (01/06/17) RPR S/N/AX/GEN/TRNK 2.5CM/< (10/11/16) SMEAR WET [place] SALINE/INK (05/16/18) THER/DIAG CONCURRENT INF (12/04/16) THER/PROPH/DIAG INJ IV PUSH (01/06/17) THER/PROPH/DIAG INJ SC/IM (08/30/13) THER/PROPH/DIAG IV INF ADDON (12/04/16) THER/PROPH/DIAG IV INF INIT (12/04/16) THROMBOPLASTIN TIME PARTIAL (12/06/16) TX/PRO/DX INJ NEW DRUG ADDON (12/04/16) URINALYSIS AUTO W/O SCOPE (08/19/19) URINALYSIS AUTO W/SCOPE (07/05/18) URINE CULTURE/COLONY COUNT (07/05/18) URINE TEST (12/06/16) WEST NILE VIRUS AB IGM (01/06/17) X-RAY EXAM OF ANKLE (03/08/19) X-RAY EXAM OF KNEE 1 OR 2 (08/30/13) (1) bleeding SNOMED Code(s): 35232242 Code(s): O72.1 - OTHER IMMEDIATE HEMORRHAGE (2) Endometritis SNOMED Code(s): 48677088 Code(s): N71.9 - INFLAMMATORY DISEASE OF UTERUS, UNSPECIFIED (3) Vaginal bleeding SNOMED Code(s): 456779372 Code(s): N93.9 - ABNORMAL UTERINE AND VAGINAL BLEEDING, UNSPECIFIED Problem List Initiated/Reviewed/Updated: Yes My Orders Last 24 Hours: My Active Orders 10/01/19 13:36 Peripheral IV Care [RC] . DIRECTED Peripheral IV Insertion Adult [OM.PC] Routine Plan: Pelvic exam reveals multiple clots in the vault which were cleared. Os did appear dilated. Pelvic ultrasound ordered and showed normal endometrial stripe with no retained products and no large clots. She does have significant uterine tenderness but no fever or white count. Will treat for possible endometritis with Augmentin and Flagyl. She was given IV fluids. red flag symptoms were reviewed with her and she will follow up with Thomas Avalos or myself if she continues to have problems. She will return to the ER if bleeding worsens overnight. Would recommend starting iron supplementation as well.
== END 2019-10-01 15:02 | disposition home or self-care (01) ==
LOC: DL.ED 12:19
DX: O72.1 Other immediate postpartum hemorrhage (principal); O99.335 Smoking (tobacco) complicating the puerperium; F17.210 Nicotine dependence, cigarettes, uncomplicated; Z88.6 Allergy status to analgesic agent; Z79.899 Other long term (current) drug therapy
CPT/HCPCS: 36415; 76856; 80053; 83605; 84703; 85025; 87040; 96360; 99284; J7030

== ENCOUNTER 2019-11-04 10:45 | Emergency (ER) | payer MEDICAID, OTHER ==
--- NOTE | 2019-11-04 11:10 | EDM.PDOC ---
ED HPI GENERAL MEDICAL PROBLEM - General Chief Complaint: Genitourinary Problem Stated Complaint: PAIN/ITCHING Time Seen by Provider: 11/04/19 11:10 Source of Information: Reports: Patient, RN, RN Notes Reviewed History Limitations: Reports: No Limitations - History of Present Illness INITIAL COMMENTS - FREE TEXT/NARRATIVE: Patient presents to ER with complaint of pain, swelling, burning to the vaginal area. Patient denies any urinary symptoms frequency urgency, just burning with urination after the swelling began since last night. Patient states the swelling began last night after intercourse, had not had this prior to that no pain during intercourse. Patient states she has continued to get more swollen, states it itches mildly but is very painful. Denies any vaginal discharge. 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 History: hx of preeclampsia Musculoskeletal History: Reports: None Neurological History: Reports: None Psychiatric History: Reports: Depression, Suicide Attempt, Suicidal Ideation Endocrine/Metabolic History: Reports: None Hematologic History: Reports: None Immunologic History: Reports: None Oncologic (Cancer) History: Reports: None Dermatologic History: Reports: Eczema - Infectious Disease History Infectious Disease History: Reports: Chicken Pox - Past Surgical History Head Surgeries/Procedures: Reports: None HEENT Surgical History: Reports: Oral Surgery GI Surgical History: Reports: Cholecystectomy Social & Family History - Family History Family Medical History: Noncontributory - Caffeine Use Caffeine Use: Reports: Soda Other Caffeine Use: 3-4 sodas per day - Sexual History Sexual History: Reports: Sexually Active - Living Situation & Occupation Living situation: Reports: with Family ED ROS GENERAL - Review of Systems Review Of Systems: Comprehensive ROS is negative, except as noted in HPI. ED EXAM, RENAL/ - Physical Exam Exam: See Below Exam Limited By: No Limitations General Appearance: Alert, WD/WN, Mild Distress Eye Exam: Bilateral Eye: EOMI, Normal Inspection Ears: Normal External Exam, Hearing Grossly Normal Nose: Normal Inspection Throat/Mouth: Normal Inspection, Normal Voice, No Airway Compromise Head: Atraumatic, Normocephalic Neck: Normal Inspection, Supple, Non-Tender, Full Range of Motion Respiratory/Chest: No Respiratory Distress, Lungs Clear, Normal Breath Sounds, No Accessory Muscle Use, Chest Non-Tender Cardiovascular: Normal Peripheral Pulses, Regular Rate, Rhythm, No Edema, No Gallop, No JVD, No Murmur, No Rub GI/Abdominal: Normal Bowel Sounds, Soft, Non-Tender, No Organomegaly, No Distention, No Abnormal Bruit, No Mass (Female) Exam: Vaginal Lesions (labia minor very swollen and protruding, painful, no erythema) Back Exam: Normal Inspection, Full Range of Motion, NT Extremities: Normal Inspection, Normal Range of Motion, Non-Tender, Normal Capillary Refill, No Pedal Edema Neurological: Alert, Oriented, CN II-XII Intact, Normal Cognition, Normal Gait, Normal Reflexes, No Motor/Sensory Deficits Psychiatric: Normal Affect, Normal Mood Skin Exam: Warm, Dry, Intact, Normal Color, No Rash Lymphatic: No Adenopathy Course - Vital Signs Last Recorded V/S: Last Vital Signs Temp 97.6 F 11/04/19 10:55 Pulse 76 11/04/19 10:55 Resp 16 11/04/19 10:55 BP 116/69 11/04/19 10:55 Pulse Ox 98 11/04/19 10:55 - Orders/Labs/Meds Labs: Laboratory Tests 11/04/19 11/04/19 Range/Units 11:10 11:10 Urine Color Yellow (YELLOW) Urine Appearance Clear (CLEAR) Urine pH 6.5 (5.0-9.0) Ur Specific [place] >= 1.030 (1.005-1.030) Urine Protein Trace H (NEGATIVE) Urine Glucose (UA) Negative (NEGATIVE) Urine Ketones Negative (NEGATIVE) Urine Occult Blood Negative (NEGATIVE) Urine Nitrite Negative (NEGATIVE) Urine Bilirubin Negative (NEGATIVE) Urine Urobilinogen 0.2 (0.2-1.0) mg/dL Ur Leukocyte Esterase Negative (NEGATIVE) Urine RBC 0-5 /HPF Urine WBC 0-5 (0-5/HPF) /HPF Ur Epithelial Cells Many H (NOT SEEN) /HPF Amorphous Sediment Few (NOT SEEN) /HPF Urine Bacteria Few (0-FEW/HPF) /HPF Urine Mucus Few H (NOT SEEN) /LPF Urine HCG, Qual Negative Meds: Medications Discontinued Medications Generic Name Dose Route Start Last Admin Trade Name Ashok PRN Reason Stop Dose Admin Benzocaine/Menthol 1 gm 11/04/19 12:35 11/04/19 12:53 Dermoplast Pain Relief [place] TOP 11/04/19 12:36 1 gm ONETIME ONE Administration Lidocaine HCl 10 ml 11/04/19 12:36 Xylocaine 2% Jelly MUCMEM 11/04/19 12:37 ONETIME ONE Lidocaine HCl 5 ml 11/04/19 12:43 11/04/19 12:53 Xylocaine 2% Jelly TOP 11/04/19 12:44 5 ml ONETIME ONE Administration Departure - Departure Time of Disposition: 12:48 Disposition: Home, Self-Care 01 Condition: Good Clinical Impression: Labial swelling - Discharge Information *PRESCRIPTION DRUG MONITORING PROGRAM REVIEWED*: No *COPY OF PRESCRIPTION DRUG MONITORING REPORT IN PATIENT DORI: No Referrals: Chip Guzman MD [Primary Care Provider] - Forms: ED Department Discharge Additional Instructions: May use Tylenol and/or ibuprofen as directed for pain Rx: Dermoplast spray, Xylocaine Jelly Follow-up with your primary care provider May use ice as tolerated Sepsis Event Note (ED) - Focused Exam Vital Signs: Vital Signs Temp Pulse Resp BP Pulse Ox 11/04/19 10:55 97.6 F 76 16 116/69 98
[2019-11-04 11:12] VITALS: BP 116/69; PULSE 76
[2019-11-04] MEDS ORDERED: Benzocaine/Menthol 20%-0.5% Spray 56 GM Canister TOP ONE (12:35)
[2019-11-04] MEDS ORDERED: Lidocaine 2% Jelly 10 ML Urojet MUCMEM ONE (12:36)
[2019-11-04] MEDS ORDERED: Lidocaine 2% Jelly 5 ML Tube TOP ONE (12:43)
== END 2019-11-04 12:56 | disposition home or self-care (01) ==
LOC: DL.ED 10:45
DX: N89.8 Other specified noninflammatory disorders of vagina (principal); Z88.6 Allergy status to analgesic agent
CPT/HCPCS: 81001; 81025; 99283

== ENCOUNTER 2019-12-23 11:00 | Emergency (ER) | payer MEDICAID ==
[2019-12-23 11:17] VITALS: BP 122/90; PULSE 90
[2019-12-23 11:41] LABS: ANION GAP 19.3 mEq/L (7-13); CHLORIDE,CL 104 mmol/L (98-107); SODIUM,NA 141 mmol/L (136-145)
[2019-12-23 11:51] LABS: ACETAMINOPHEN 673 ug/mL (10-30 (Therapeutic))
[2019-12-23] MEDS ORDERED: ACETYLCYSTEINE IV ONE ×6 (12:05→13:47)
[2019-12-23] MEDS ORDERED: DEXTROSE 5% IV ONE ×6 (12:05→13:47)
[2019-12-23] MEDS ORDERED: WATER IV ONE ×6 (12:05→13:47)
[2019-12-23] MEDS ORDERED: Ondansetron 4 MG/2 ML SDV IVPUSH ONE (12:22)
--- NOTE | 2019-12-23 12:22 | EDM.PDOCBH ---
ED HPI GENERAL MEDICAL PROBLEM - General Chief Complaint: Drug or Alcohol Abuse Time Seen by Provider: 12/23/19 12:10 Source of Information: Reports: Patient History Limitations: Reports: No Limitations - History of Present Illness INITIAL COMMENTS - FREE TEXT/NARRATIVE: This 24 yo female patient was brought to the ED due to an overdose on Tylenol. The patient reports she took about 1/2 bottle of "pain killer" at 0400 this morning due to having increased back pain and partially to kill herself. The patient recently lost a child and is having difficulties dealing with that. The patient denied any alcohol use, but admits to marijuana use. The patient was questioned about her drug screen and admits to buying some suboxone off the street and took it yesterday. Onset: Today Onset Date: 12/23/19 Duration: Constant Location: Reports: Other Quality: Reports: Other Severity: Severe Improves with: Reports: None Worsens with: Reports: None Context: Reports: Other Associated Symptoms: Reports: Nausea/Vomiting - Related Data Allergies Allergy/AdvReac Type Severity Reaction Status Date / Time ibuprofen [From Motrin] Allergy Stomach Verified 12/23/19 11:18 Upset Home Meds: Home Meds Iron 18 mg PO DAILY 10/01/19 [History] Past Medical History - Past Health History Medical/Surgical History: Denies Medical/Surgical History HEENT History: Reports: None Cardiovascular History: Reports: None Respiratory History: Reports: None Gastrointestinal History: Reports: Chronic Constipation, GERD Genitourinary History: Reports: None MANAGEMENT INTERN History: Reports: Other MANAGEMENT INTERN History: hx of preeclampsia Musculoskeletal History: Reports: None Neurological History: Reports: None Psychiatric History: Reports: Depression, Suicide Attempt, Suicidal Ideation Endocrine/Metabolic History: Reports: None Hematologic History: Reports: None Immunologic History: Reports: None Oncologic (Cancer) History: Reports: None Dermatologic History: Reports: Eczema - Infectious Disease History Infectious Disease History: Reports: None - Past Surgical History Head Surgeries/Procedures: Reports: None HEENT Surgical History: Reports: Oral Surgery GI Surgical History: Reports: Cholecystectomy Social & Family History - Family History Family Medical History: Noncontributory - Tobacco Use Smoking Status *Q: Current Every Day Smoker Years of Tobacco use: 3 Packs/Tins Daily: 1 - Caffeine Use Caffeine Use: Reports: Soda Other Caffeine Use: 3-4 sodas per day - Recreational Drug Use Recreational Drug Use: Yes - Sexual History Sexual History: Reports: Sexually Active - Living Situation & Occupation Living situation: Reports: with Family ED ROS GENERAL - Review of Systems Review Of Systems: Comprehensive ROS is negative, except as noted in HPI. ED EXAM, BEHAVIORAL HEALTH - Physical Exam Exam: See Below Exam Limited By: No Limitations General Appearance: Alert, WD/WN, Anxious, Moderate Distress, Thin Eye Exam: Bilateral Eye: EOMI, Normal Inspection, PERRL Ears: Normal External Exam, Normal Canal, Hearing Grossly Normal, Normal TMs Nose: Normal Inspection, Normal Mucosa, No Blood Throat/Mouth: Normal Inspection, Normal Lips, Normal Teeth, Normal Gums, Normal Oropharynx, Normal Voice, No Airway Compromise Head: Atraumatic, Normocephalic Neck: Normal Inspection, Supple, Non-Tender, Full Range of Motion Respiratory/Chest: No Respiratory Distress, Lungs Clear, Normal Breath Sounds, No Accessory Muscle Use, Chest Non-Tender Cardiovascular: Normal Peripheral Pulses, Regular Rate, Rhythm, No Edema, No Gallop, No JVD, No Murmur, No Rub GI/Abdominal: Normal Bowel Sounds, Soft, Non-Tender, No Organomegaly, No Distention, No Abnormal Bruit, No Mass (Female) Exam: Deferred Rectal (Female) Exam: Deferred Back Exam: Paraspinal Tenderness (diffuse) Extremities: Normal Inspection, Normal Range of Motion, Non-Tender, Normal Capillary Refill, No Pedal Edema Neurological: Alert, Normal Mood/Affect, CN II-XII Intact, Normal Cognition, Normal Gait, Normal Reflexes, No Motor/Sensory Deficits, Oriented x 3 Psychiatric: Depressed Mood, Tearful Skin Exam: Warm, Dry, Intact, Normal color, No rash COURSE, BEHAVIORAL HEALTH COMP - Course Vital Signs: Last Vital Signs Temp 36.4 C 12/23/19 11:12 Pulse 90 12/23/19 11:12 Resp 20 12/23/19 11:12 BP 122/90 12/23/19 11:12 Pulse Ox 99 12/23/19 11:12 Orders, Labs, Meds: Active Orders 24 hr Category Date Time Status EKG 12 Lead [EKG Documentation Completion] [RC] URGENT Care 12/23/19 11:17 Active Acetylcysteine [Acetadote 20%] 2,650 mg Med 12/23/19 13:47 Active Dextrose 5% in Water 500 ml IV ONETIME Medication Orders Acetylcysteine 2,650 mg/ (Dextrose/Water) 513.25 mls @ 128.313 mls/hr IV ONETIME ONE; Protocol Stop: 12/23/19 17:46 Last Admin: 12/23/19 14:03 Dose: 128.313 mls/hr Documented by: Laboratory Tests 12/23/19 12/23/19 12/23/19 Range/Units 11:08 11:08 11:08 WBC 4.9 L (5.0-10.0) 10^3/uL RBC 5.06 (4.2-5.4) 10^6/uL Hgb 13.1 (12.0-16.0) g/dL Hct 40.8 (37.0-47.0) % MCV 80.6 D (80-100) fL MCH 25.9 L (27.0-34.0) pg MCHC 32.1 L (33.0-35.0) g/dL Plt Count 391 D (150-450) 10^3/uL Neut % (Auto) 41.3 L (42.2-75.2) % Lymph % (Auto) 51.4 H (20.5-50.1) % [place] % (Auto) 5.9 (2-8) % Eos % (Auto) 0.8 L (1.0-3.0) % Baso % (Auto) 0.6 (0.0-1.0) % Sodium 141 (136-145) mmol/L Potassium 3.3 L (3.5-5.1) mmol/L Chloride 104 (98-107) mmol/L Carbon Dioxide 21 (21-32) mmol/L Anion Gap 19.3 H (7-13) mEq/L BUN 11 (7-18) mg/dL Creatinine 1.12 H (0.55-1.02) mg/dL Est Cr Clr Drug Dosing 64.62 mL/min Estimated GFR (MDRD) > 60 BUN/Creatinine Ratio 9.8 (No establ ref range) Glucose 213 H (74-99) mg/dL Calcium 8.3 L (8.5-10.1) mg/dL Total Bilirubin 0.8 (0.2-1.0) mg/dL AST 125 H (15-37) U/L ALT 110 H (14-59) U/L Alkaline Phosphatase 95 (46-116) U/L Total Protein 7.1 (6.4-8.2) g/dL Albumin 3.6 (3.4-5.0) g/dL Globulin 3.5 Albumin/Globulin Ratio 1.0 Urine Color (YELLOW) Urine Appearance (CLEAR) Urine pH (5.0-9.0) Ur Specific [place] (1.005-1.030) Urine Protein (NEGATIVE) Urine Glucose (UA) (NEGATIVE) Urine Ketones (NEGATIVE) Urine Occult Blood (NEGATIVE) Urine Nitrite (NEGATIVE) Urine Bilirubin (NEGATIVE) Urine Urobilinogen (0.2-1.0) mg/dL Ur Leukocyte Esterase (NEGATIVE) Urine RBC /HPF Urine WBC (0-5/HPF) /HPF Ur Epithelial Cells (NOT SEEN) /HPF Amorphous Sediment (NOT SEEN) /HPF Urine Bacteria (0-FEW/HPF) /HPF Urine Mucus (NOT SEEN) /LPF Urine HCG, Qual Salicylates 3.9 (2.8-20(Therapeutic)) mg/dL Urine Opiates Screen (NEGATIVE) Ur Oxycodone Screen (NEGATIVE) Urine Methadone Screen (NEGATIVE) Acetaminophen 673 H* (10-30 (Therapeutic)) ug/mL Ur Barbiturates Screen (NEGATIVE) U Tricyclic Antidepress (NEGATIVE) Ur Phencyclidine Scrn (NEGATIVE) Ur Amphetamine Screen (NEGATIVE) U Methamphetamines Scrn (NEGATIVE) Urine MDMA Screen (NEGATIVE) U Benzodiazepines Scrn (NEGATIVE) Urine Cocaine Screen (NEGATIVE) U Marijuana (THC) Screen (NEGATIVE) Ethyl Alcohol < 3 (0) mg/dL 12/23/19 12/23/19 12/23/19 Range/Units 11:40 11:40 11:40 WBC (5.0-10.0) 10^3/uL RBC (4.2-5.4) 10^6/uL Hgb (12.0-16.0) g/dL Hct (37.0-47.0) % MCV (80-100) fL MCH (27.0-34.0) pg MCHC (33.0-35.0) g/dL Plt Count (150-450) 10^3/uL Neut % (Auto) (42.2-75.2) % Lymph % (Auto) (20.5-50.1) % [place] % (Auto) (2-8) % Eos % (Auto) (1.0-3.0) % Baso % (Auto) (0.0-1.0) % Sodium (136-145) mmol/L Potassium (3.5-5.1) mmol/L Chloride (98-107) mmol/L Carbon Dioxide (21-32) mmol/L Anion Gap (7-13) mEq/L BUN (7-18) mg/dL Creatinine (0.55-1.02) mg/dL Est Cr Clr Drug Dosing mL/min Estimated GFR (MDRD) BUN/Creatinine Ratio (No establ ref range) Glucose (74-99) mg/dL Calcium (8.5-10.1) mg/dL Total Bilirubin (0.2-1.0) mg/dL AST (15-37) U/L ALT (14-59) U/L Alkaline Phosphatase (46-116) U/L Total Protein (6.4-8.2) g/dL Albumin (3.4-5.0) g/dL Globulin Albumin/Globulin Ratio Urine Color Yellow (YELLOW) Urine Appearance Slightly cloudy (CLEAR) Urine pH 5.5 (5.0-9.0) Ur Specific [place] 1.025 (1.005-1.030) Urine Protein Trace H (NEGATIVE) Urine Glucose (UA) 100 H (NEGATIVE) Urine Ketones 15 H (NEGATIVE) Urine Occult Blood Negative (NEGATIVE) Urine Nitrite Negative (NEGATIVE) Urine Bilirubin Negative (NEGATIVE) Urine Urobilinogen 0.2 (0.2-1.0) mg/dL Ur Leukocyte Esterase Negative (NEGATIVE) Urine RBC 0-5 /HPF Urine WBC 0-5 (0-5/HPF) /HPF Ur Epithelial Cells Few (NOT SEEN) /HPF Amorphous Sediment Rare (NOT SEEN) /HPF Urine Bacteria Rare (0-FEW/HPF) /HPF Urine Mucus Rare (NOT SEEN) /LPF Urine HCG, Qual Negative Salicylates (2.8-20(Therapeutic)) mg/dL Urine Opiates Screen Negative (NEGATIVE) Ur Oxycodone Screen Positive H (NEGATIVE) Urine Methadone Screen Negative (NEGATIVE) Acetaminophen (10-30 (Therapeutic)) ug/mL Ur Barbiturates Screen Negative (NEGATIVE) U Tricyclic Antidepress Negative (NEGATIVE) Ur Phencyclidine Scrn Negative (NEGATIVE) Ur Amphetamine Screen Negative (NEGATIVE) U Methamphetamines Scrn Negative (NEGATIVE) Urine MDMA Screen Negative (NEGATIVE) U Benzodiazepines Scrn Positive H (NEGATIVE) Urine Cocaine Screen Negative (NEGATIVE) U Marijuana (THC) Screen Positive H (NEGATIVE) Ethyl Alcohol (0) mg/dL Medications Generic Name Dose Route Start Last Admin Trade Name Freq PRN Reason Stop Dose Admin Acetylcysteine 2,650 mg/ 513.25 mls @ 128.313 mls/hr 12/23/19 13:47 12/23/19 14:03 Dextrose/Water IV 12/23/19 17:46 128.313 mls/hr ONETIME ONE Administration Protocol Discontinued Medications Generic Name Dose Route Start Last Admin Trade Name Freq PRN Reason Stop Dose Admin Acetylcysteine 7,950 mg/ 239.75 mls @ 200 mls/hr 12/23/19 12:05 12/23/19 12:35 Dextrose/Water IV 12/23/19 13:04 200 mls/hr ONETIME ONE Administration Protocol Ondansetron HCl 4 mg 12/23/19 12:22 12/23/19 12:26 Zofran IVPUSH 12/23/19 12:23 4 mg ONETIME ONE Administration Re-Assessment/Re-Exam: Difficulties establishing a receiving facility for the patient: [facility] called - no beds available 12[facility] called - no beds available 12[facility] called - accepted the patient, but there will be a delay until a bed is open. Departure - Departure Time of Disposition: 15:28 Disposition: DC/Tfer to Acute Hospital 02 Condition: Serious Clinical Impression: Tylenol overdose Qualifiers: Encounter type: initial encounter Injury intent: intentional self-harm Qualified Code(s): T39.1X2A - Poisoning by 4-Aminophenol derivatives, intentional self-harm, initial encounter Suicide Qualifiers: Encounter type: initial encounter Qualified Code(s): X83.8XXA - Intentional self-harm by other specified means, initial encounter - Discharge Information *PRESCRIPTION DRUG MONITORING PROGRAM REVIEWED*: Not Applicable *COPY OF PRESCRIPTION DRUG MONITORING REPORT IN PATIENT DORI: Not Applicable Forms: Interfacility Transfer EMTALA Care Plan Goals: Discussed the examination, labs and treatments with Dr. Bell (Hospitalist with [facility] in [place]). The patient will be transported by [facility]. Sepsis Event Note (ED) - Evaluation Sepsis Screening Result: No Definite Risk - Focused Exam Vital Signs: Vital Signs Temp Pulse Resp BP Pulse Ox 12/23/19 11:12 36.4 C 90 20 122/90 99 - My Orders Last 24 Hours: My Active Orders 12/23/19 11:17 EKG 12 Lead [EKG Documentation Completion] [RC] URGENT 12/23/19 13:47 Acetylcysteine [Acetadote 20%] 2,650 mg Dextrose 5% in Water 500 ml IV ONETIME - Assessment/Plan Last 24 Hours: My Active Orders 12/23/19 11:17 EKG 12 Lead [EKG Documentation Completion] [RC] URGENT 12/23/19 13:47 Acetylcysteine [Acetadote 20%] 2,650 mg Dextrose 5% in Water 500 ml IV ONETIME
== END 2019-12-23 16:06 ==
LOC: DL.ED 11:00
DX: T39.1X2A Poisoning by 4-Aminophenol derivatives, intentional self-harm, initial encounter (principal); R11.2 Nausea with vomiting, unspecified; F17.210 Nicotine dependence, cigarettes, uncomplicated; Z88.6 Allergy status to analgesic agent
CPT/HCPCS: 36415; 80053; 80305-QW; 80307; 81001; 81025; 85025; 93005; 93010; 96365; 96366; 96375; 99284; 99285-25; J0132; J2405; J7060

== ENCOUNTER 2020-02-11 14:43 | Emergency (ER) | payer MEDICAID ==
[2020-02-11] MEDS ORDERED: Lidocaine 1% 30 ML SDV INJECT ONE (14:55)
[2020-02-11] MEDS ORDERED: Bacitracin Oint 1 GM U/D Packet TOP ONE (15:00)
--- NOTE | 2020-02-11 15:00 | EDM.PDOC ---
ED HPI GENERAL MEDICAL PROBLEM - General Chief Complaint: Laceration Stated Complaint: LEFT INNER FORARM CUTT Time Seen by Provider: 02/11/20 14:59 Source of Information: Reports: Patient, RN, RN Notes Reviewed History Limitations: Reports: No Limitations - History of Present Illness INITIAL COMMENTS - FREE TEXT/NARRATIVE: Patient presents to the ED via personal vehicle with complaints of laceration to left anterior forearm. Per the patient, she sustained this laceration while cutting boxes. She states she is up-to-date with tetanus toxoid. She denies loss of motor function or sensory to the extremity. She denies suicidal ideation and states this was not an attempt at self-harm. Left Arm Pain Score (Numeric/FACES): 8 - Related Data Allergies Allergy/AdvReac Type Severity Reaction Status Date / Time ibuprofen [From Motrin] Allergy Stomach Verified 12/23/19 11:18 Upset Home Meds: Home Meds Iron 18 mg PO DAILY 10/01/19 [History] Past Medical History - Past Health History Medical/Surgical History: Denies Medical/Surgical History HEENT History: Reports: None Cardiovascular History: Reports: None Respiratory History: Reports: None Gastrointestinal History: Reports: Chronic Constipation, GERD Genitourinary History: Reports: None RETURNER History: Reports: Other RETURNER History: hx of preeclampsia Musculoskeletal History: Reports: None Neurological History: Reports: None Psychiatric History: Reports: Depression, Suicide Attempt, Suicidal Ideation Endocrine/Metabolic History: Reports: None Hematologic History: Reports: None Immunologic History: Reports: None Oncologic (Cancer) History: Reports: None Dermatologic History: Reports: Eczema - Infectious Disease History Infectious Disease History: Reports: None - Past Surgical History Head Surgeries/Procedures: Reports: None HEENT Surgical History: Reports: Oral Surgery GI Surgical History: Reports: Cholecystectomy Social & Family History - Family History Family Medical History: Noncontributory - Caffeine Use Caffeine Use: Reports: Soda Other Caffeine Use: 3-4 sodas per day - Sexual History Sexual History: Reports: Sexually Active - Living Situation & Occupation Living situation: Reports: with Family ED ROS GENERAL - Review of Systems Review Of Systems: Comprehensive ROS is negative, except as noted in HPI. ED EXAM, SKIN/RASH Exam: See Below Exam Limited By: No Limitations General Appearance: Alert, WD/WN, No Apparent Distress Peripheral Pulses: 2+: Radial (L), Radial (R) Extremities: Normal Inspection, Normal Range of Motion, Normal Capillary Refill, Other (7cm clean laceration to left anterior forearm) Neurological: Alert, Oriented, CN II-XII Intact, No Motor/Sensory Deficits Skin: Warm, Dry, Wound/Incision (To left anterior forearm. ) Location, Skin: Upper Extremity, Left ED SKIN PROCEDURES - Laceration/Wound Repair Left Anterior Midline Arm Appearance: Subcutaneous Distal NVT: No Tendon Injury Anesthetic Type: Local Local Anesthesia - Lidocaine (Xylocaine): 1% Plain Local Anesthetic Volume: 5cc Skin Prep: Saline, Sterile Drape Exploration/Debridement/Repair: No Foreign Material Found, Wound Margins Revised Closed with: Sutures Lac/Wound length In cm: 7 Suture Size: 4-0 Suture Type: Prolene, Interrupted, Simple Drain Placement: No Sterile Dressing Applied: Provider Tetanus Status Addressed: Yes Complications: No Course - Vital Signs Last Recorded V/S: Last Vital Signs Temp 98.5 F 02/11/20 14:56 Pulse 78 02/11/20 14:56 Resp 18 02/11/20 14:56 BP 122/79 02/11/20 14:56 Pulse Ox 99 02/11/20 14:56 - Orders/Labs/Meds Meds: Medications Discontinued Medications Generic Name Dose Route Start Last Admin Trade Name Freq PRN Reason Stop Dose Admin Bacitracin 1 dose 02/11/20 15:00 Bacitracin Oint 1 Gm TOP 02/11/20 15:01 ONETIME ONE Lidocaine HCl 30 ml 02/11/20 14:55 Xylocaine-Mpf 1% INJECT 02/11/20 14:56 ONETIME ONE Departure - Departure Time of Disposition: 15:42 Disposition: Home, Self-Care 01 Condition: Good Clinical Impression: Laceration of left forearm without foreign body Qualifiers: Encounter type: initial encounter Qualified Code(s): S51.812A - Laceration without foreign body of left forearm, initial encounter - Discharge Information *PRESCRIPTION DRUG MONITORING PROGRAM REVIEWED*: Not Applicable *COPY OF PRESCRIPTION DRUG MONITORING REPORT IN PATIENT DORI: Not Applicable Instructions: Laceration Care, Adult, [id number], Sutured Wound Care, [id number] Forms: ED Department Discharge Additional Instructions: Return to primary clinic facility for removal of stitches in one week. Keep wound clean and dry; Change bandaid as needed. Sepsis Event Note (ED) - Focused Exam Vital Signs: Vital Signs Temp Pulse Resp BP Pulse Ox 02/11/20 14:56 98.5 F 78 18 122/79 99
[2020-02-11 15:07] VITALS: BP 122/79; PULSE 78
== END 2020-02-11 15:57 | disposition home or self-care (01) ==
LOC: DL.ED 14:43
DX: S51.812A Laceration without foreign body of left forearm, initial encounter (principal); Z88.6 Allergy status to analgesic agent; W27.8XXA Contact with other nonpowered hand tool, initial encounter
CPT/HCPCS: 12002; 99282; J2001

== ENCOUNTER 2020-06-09 10:18 | Emergency (ER) | payer MEDICAID ==
[2020-06-09] MEDS ORDERED: Lidocaine 2% Jelly 10 ML Urojet MUCMEM ONE (10:30)
[2020-06-09] MEDS ORDERED: Lidocaine 5% Oint 35.44 GM Tube TOP ONE (10:30)
[2020-06-09] MEDS ORDERED: Ketorolac 30 MG/ML SDV IM ONE (10:31)
[2020-06-09 10:34] VITALS: BP 145/91; PULSE 110
--- NOTE | 2020-06-09 10:45 | EDM.PDOC ---
ED HPI GENERAL MEDICAL PROBLEM - General Chief Complaint: Abdominal Pain Stated Complaint: SEVERE CRAMPS IN STOMACH Time Seen by Provider: 06/09/20 10:35 Source of Information: Reports: Patient, Old Records, RN, RN Notes Reviewed History Limitations: Reports: No Limitations - History of Present Illness INITIAL COMMENTS - FREE TEXT/NARRATIVE: Pt presents to ER from home by POV with c/o left sided abdominal pain and cramping, constipation, and very painful hemorrhoids. Pt states she has been taking laxatives and using a topical hemorrhoid cream, but nothing is helping. She denies bloody, dark, or black stools, or hemorrhoidal bleeding. Denies fever, chills, N/V/D, or dysuria. Onset: Gradual Duration: Constant, Getting Worse Location: Reports: Abdomen, Other (Anus/Rectal) Quality: Reports: Ache, Burning, Pressure, Sharp, Throbbing Severity: Severe Improves with: Reports: None Worsens with: Reports: Other (Sitting, BMs) Associated Symptoms: Reports: No Other Symptoms Anus Pain Score (Numeric/FACES): 9 - Related Data Allergies Allergy/AdvReac Type Severity Reaction Status Date / Time ibuprofen [From Motrin] Allergy Stomach Verified 06/09/20 10:27 Upset Home Meds: Home Meds Iron 18 mg PO DAILY 10/01/19 [History] Buprenorphine/Naloxone [Buprenorphine-Naloxone 8 MG-2 MG] 2 tab SL DAILY 06/09/20 [History] Cyclobenzaprine [Flexeril] 10 mg PO PRN 06/09/20 [History] Gabapentin [Neurontin] 600 mg PO BID 06/09/20 [History] Past Medical History - Past Health History Medical/Surgical History: Denies Medical/Surgical History HEENT History: Reports: None Cardiovascular History: Reports: None Respiratory History: Reports: None Gastrointestinal History: Reports: Chronic Constipation, GERD, Hemorrhoids Genitourinary History: Reports: None SPORTS COORDINATOR History: Reports: Other SPORTS COORDINATOR History: hx of preeclampsia Musculoskeletal History: Reports: None Neurological History: Reports: None Psychiatric History: Reports: Depression, Suicide Attempt, Suicidal Ideation Endocrine/Metabolic History: Reports: None Hematologic History: Reports: None Immunologic History: Reports: None Oncologic (Cancer) History: Reports: None Dermatologic History: Reports: Eczema - Infectious Disease History Infectious Disease History: Reports: None - Past Surgical History Head Surgeries/Procedures: Reports: None HEENT Surgical History: Reports: Oral Surgery GI Surgical History: Reports: Cholecystectomy Social & Family History - Family History Family Medical History: No Pertinent Family History - Caffeine Use Caffeine Use: Reports: Soda Other Caffeine Use: 3-4 sodas per day - Sexual History Sexual History: Reports: Sexually Active - Living Situation & Occupation Living situation: Reports: with Family ED ROS GENERAL - Review of Systems Review Of Systems: Comprehensive ROS is negative, except as noted in HPI. ED EXAM, GI/ABD - Physical Exam Exam: See Below Exam Limited By: No Limitations General Appearance: Alert, WD/WN, No Apparent Distress, Anxious, Thin Eyes: Bilateral: Normal Appearance (No scleral icterus) Nose: Normal Inspection Throat/Mouth: Normal Inspection Head: Atraumatic, Normocephalic Respiratory/Chest: No Respiratory Distress, Lungs Clear Cardiovascular: Regular Rate, Rhythm, Tachycardia GI/Abdominal Exam: Normal Bowel Sounds, Soft, No Organomegaly, No Distention, No Mass, Tender (LUQ, LLQ). No: Guarding, Rigid, Rebound (Female) Exam: Deferred Rectal (Female) Exam: Hemorrhoids Back Exam: Normal Inspection Extremities: Normal Inspection Neurological: Alert, Oriented, No Motor/Sensory Deficits Psychiatric: Anxious, Tearful Skin Exam: Warm, Dry, Intact, Normal Color, No Rash Course - Vital Signs Last Recorded V/S: Last Vital Signs Temp 98.9 F 06/09/20 10:31 Pulse 110 H 06/09/20 10:31 Resp 20 06/09/20 10:31 BP 145/91 H 06/09/20 10:31 Pulse Ox 99 06/09/20 10:31 - Orders/Labs/Meds Orders: Active Orders 24 hr Category Date Time Status Abdomen 1V Flat [CR] Urgent Exams 06/09/20 10:55 Taken Labs: Laboratory Tests 06/09/20 06/09/20 06/09/20 Range/Units 10:33 10:33 10:43 WBC 8.1 (5.0-10.0) 10^3/uL RBC 5.03 (4.2-5.4) 10^6/uL Hgb 14.1 (12.0-16.0) g/dL Hct 41.4 (37.0-47.0) % MCV 82.3 (80-100) fL MCH 28.0 (27.0-34.0) pg MCHC 34.1 (33.0-35.0) g/dL Plt Count 325 (150-450) 10^3/uL Neut % (Auto) 67.5 (42.2-75.2) % Lymph % (Auto) 24.9 (20.5-50.1) % [place] % (Auto) 4.9 (2-8) % Eos % (Auto) 2.2 (1.0-3.0) % Baso % (Auto) 0.5 (0.0-1.0) % Urine Color Yellow (YELLOW) Urine Appearance Slightly cloudy (CLEAR) Urine pH 8.0 (5.0-9.0) Ur Specific [place] 1.025 (1.005-1.030) Urine Protein Negative (NEGATIVE) Urine Glucose (UA) Negative (NEGATIVE) Urine Ketones Negative (NEGATIVE) Urine Occult Blood Negative (NEGATIVE) Urine Nitrite Negative (NEGATIVE) Urine Bilirubin Negative (NEGATIVE) Urine Urobilinogen 0.2 (0.2-1.0) mg/dL Ur Leukocyte Esterase Negative (NEGATIVE) Urine HCG, Qual Negative Meds: Medications Discontinued Medications Generic Name Dose Route Start Last Admin Trade Name Freq PRN Reason Stop Dose Admin Ketorolac Tromethamine 60 mg 06/09/20 10:31 06/09/20 10:54 Toradol IM 06/09/20 10:32 60 mg ONETIME ONE Administration Lidocaine HCl 10 ml 06/09/20 10:30 06/09/20 10:56 Xylocaine 2% Jelly MUCMEM 06/09/20 10:31 10 ml ONETIME ONE Administration Lidocaine HCl 30 gm 06/09/20 10:30 06/09/20 10:55 Lidocaine 5% TOP 06/09/20 10:31 30 gm ONETIME ONE Administration - Radiology Interpretation Free Text/Narrative:: XR Abdomen: no acute process, see Rad. report. Departure - Departure Time of Disposition: 11:17 Disposition: Home, Self-Care 01 Condition: Good Clinical Impression: Chronic constipation Hemorrhoids Qualifiers: Hemorrhoid type: unspecified Qualified Code(s): K64.9 - Unspecified hemorrhoids - Discharge Information *PRESCRIPTION DRUG MONITORING PROGRAM REVIEWED*: Not Applicable *COPY OF PRESCRIPTION DRUG MONITORING REPORT IN PATIENT DORI: Not Applicable Instructions: Hemorrhoids, [id number], Constipation, Adult, [id number] Forms: ED Department Discharge Additional Instructions: Rx: Lidocaine Ointment 5% Use your constipation medication as prescribed to keep your stools soft and slightly loose. Follow up in clinic to discuss a referral to a surgeon for hemorrhoid evaluation and treatment. Sepsis Event Note (ED) - Evaluation Sepsis Screening Result: No Definite Risk - Focused Exam Vital Signs: Vital Signs Temp Pulse Resp BP Pulse Ox 06/09/20 10:31 98.9 F 110 H 20 145/91 H 99 - My Orders Last 24 Hours: My Active Orders 06/09/20 10:55 Abdomen 1V Flat [CR] Urgent - Assessment/Plan Last 24 Hours: My Active Orders 06/09/20 10:55 Abdomen 1V Flat [CR] Urgent
--- NOTE | 2020-06-09 11:33 | CR ---
EXAMINATION: Abdomen 1V Flat SEX: Female AGE: 24 years CLINICAL HISTORY: 24-year-old female complaining of left sided abd. pain, constipation. INTERPRETATION: Cholecystectomy (surgical clips RUQ). Otherwise negative exam. 1. AP lumbar spine, pelvis and hips unremarkable. 2. No other foreign bodies and no pathologic calcification, abdominal soft tissue mass or signs of mechanical bowel obstruction. 3. Specifically, no abnormal stool retention.
== END 2020-06-09 11:26 | disposition home or self-care (01) ==
LOC: DL.ED 10:18
DX: K64.9 Unspecified hemorrhoids (principal); K59.09 Other constipation; Z88.6 Allergy status to analgesic agent; Z79.899 Other long term (current) drug therapy
CPT/HCPCS: 36415; 74018; 81003; 81025; 85025; 96372; 99283; A9270; J1885

== ENCOUNTER 2020-10-29 20:02 | Emergency (ER) | payer MEDICAID ==
[2020-10-29] MEDS ORDERED: Dexamethasone 2 MG Tab PO ONE (20:03)
[2020-10-29 20:23] VITALS: BP 107/79; PULSE 92
--- NOTE | 2020-10-29 20:40 | EDM.PDOC ---
ED HPI GENERAL MEDICAL PROBLEM - General Chief Complaint: Back Pain or Injury Stated Complaint: HAS SCOLIOSIS, LOWER BACK PUFFED OUT Time Seen by Provider: 10/29/20 20:39 Source of Information: Reports: Patient, RN, RN Notes Reviewed History Limitations: Reports: No Limitations - History of Present Illness INITIAL COMMENTS - FREE TEXT/NARRATIVE: Patient is a 25-year-old female who presents to ER with complaint of lower back pain that began last evening. Patient states she was at a carnival and when she got home she had severe low back pain and swelling of the lower back. She states this morning when she got up she was unable to get out of bed. Admits to numbness and tingling to the right leg, denies any saddle anesthesia or incontinence of bowel or bladder. Patient states she has a history of scoliosis but has no issues with that in the past. Patient states the only heavy lifting is her children, one being 30 to 40 pounds. Denies any other trauma, falls, injuries. Patient admits to chills from time to time denies any fever. Patient is very tender to touch to the lower back where the swelling is. States unsure of , there is possibility. Onset: Gradual Lower Back Pain Score (Numeric/FACES): 8 - Related Data Allergies Allergy/AdvReac Type Severity Reaction Status Date / Time ibuprofen [From Motrin] Allergy Stomach Verified 06/09/20 10:27 Upset Home Meds: Home Meds Iron 18 mg PO DAILY 10/01/19 [History] Buprenorphine/Naloxone [Buprenorphine-Naloxone 8 MG-2 MG] 2 tab SL DAILY 06/09/20 [History] Cyclobenzaprine [Flexeril] 10 mg PO PRN 06/09/20 [History] Gabapentin [Neurontin] 600 mg PO BID 06/09/20 [History] Pregabalin [Lyrica] 50 mg PO 10/29/20 [History] Past Medical History - Past Health History Medical/Surgical History: Denies Medical/Surgical History HEENT History: Reports: None Cardiovascular History: Reports: None Respiratory History: Reports: None Gastrointestinal History: Reports: Chronic Constipation, GERD, Hemorrhoids Genitourinary History: Reports: None 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 KNOTTER 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: hx of preeclampsia Musculoskeletal History: Reports: None Neurological History: Reports: None Psychiatric History: Reports: Depression, Suicide Attempt, Suicidal Ideation Endocrine/Metabolic History: Reports: None Hematologic History: Reports: None Immunologic History: Reports: None Oncologic (Cancer) History: Reports: None Dermatologic History: Reports: Eczema - Infectious Disease History Infectious Disease History: Reports: None - Past Surgical History Head Surgeries/Procedures: Reports: None HEENT Surgical History: Reports: Oral Surgery GI Surgical History: Reports: Cholecystectomy Social & Family History - Family History Family Medical History: No Pertinent Family History - Tobacco Use Tobacco Use Status *Q: Current Every Day Tobacco User Years of Tobacco use: 5 Packs/Tins Daily: 0.5 - Caffeine Use Caffeine Use: Reports: Coffee Other Caffeine Use: 3-4 sodas per day - Recreational Drug Use Recreational Drug Use: No - Sexual History Sexual History: Reports: Sexually Active - Living Situation & Occupation Living situation: Reports: with Family ED ROS GENERAL - Review of Systems Review Of Systems: Comprehensive ROS is negative, except as noted in HPI. ED EXAM,LOWER BACK PAIN/INJURY - Physical Exam Exam: See Below Exam Limited By: No Limitations General Appearance: Alert, WD/WN, Mild Distress Eye Exam: Bilateral Eye: EOMI, Normal Inspection Ears: Normal External Exam, Hearing Grossly Normal Nose: Normal Inspection Throat/Mouth: Normal Inspection, Normal Voice, No Airway Compromise Head: Atraumatic, Normocephalic Neck: Normal Inspection, Supple, Non-Tender, Full Range of Motion Respiratory/Chest: No Respiratory Distress, Lungs Clear, Normal Breath Sounds, No Accessory Muscle Use, Chest Non-Tender Cardiovascular: Normal Peripheral Pulses, Regular Rate, Rhythm, No Edema, No Gallop, No JVD, No Murmur, No Rub GI/Abdominal: Normal Bowel Sounds, Soft, Non-Tender, No Organomegaly, No Distention, No Abnormal Bruit, No Mass (Female) Exam: Deferred Rectal (Female) Exam: Deferred Back Exam: Paraspinal Tenderness (low back), Vertebral Tenderness (low back), Other (swelling at the low back and very tender) Extremities: Leg Pain (numbness and tingling to the right legt), Limited Range of Motion (right leg) Neurological: Alert, Normal Mood/Affect, Oriented x 3. No: Saddle Anesthesia Psychiatric: Normal Affect, Normal Mood, Anxious Skin Exam: Warm, Dry, Intact, Normal Color, No Rash Lymphatic: No Adenopathy Course - Vital Signs Last Recorded V/S: Last Vital Signs Temp 97.2 F 10/29/20 20:19 Pulse 92 10/29/20 20:19 Resp 16 10/29/20 20:19 BP 107/79 10/29/20 20:19 Pulse Ox 100 10/29/20 20:19 - Orders/Labs/Meds Orders: Active Orders 24 hr Category Date Time Status CULTURE BLOOD [BC] Stat Lab 10/29/20 21:00 Results Morphine Med 10/29/20 22:44 Once 2 mg IVPUSH ONETIME ONE dexAMETHasone [Decadron] Med 10/29/20 22:44 Once 4 mg IV ONETIME ONE Labs: Laboratory Tests 10/29/20 10/29/20 10/29/20 Range/Units 21:00 21:00 21:00 WBC 9.3 (5.0-10.0) 10^3/uL RBC 5.40 (4.2-5.4) 10^6/uL Hgb 15.4 (12.0-16.0) g/dL Hct 45.3 (37.0-47.0) % MCV 83.9 (80-100) fL MCH 28.5 (27.0-34.0) pg MCHC 34.0 (33.0-35.0) g/dL Plt Count 299 (150-450) 10^3/uL Neut % (Auto) 68.3 (42.2-75.2) % Lymph % (Auto) 24.0 (20.5-50.1) % [place] % (Auto) 5.4 (2-8) % Eos % (Auto) 1.9 (1.0-3.0) % Baso % (Auto) 0.4 (0.0-1.0) % Sodium 143 (136-145) mmol/L Potassium 3.7 (3.5-5.1) mmol/L Chloride 107 (98-107) mmol/L Carbon Dioxide 27 (21-32) mmol/L Anion Gap 12.7 (7-13) mEq/L BUN 3 L (7-18) mg/dL Creatinine 0.78 (0.55-1.02) mg/dL Est Cr Clr Drug Dosing 96.04 mL/min Estimated GFR (MDRD) > 60 BUN/Creatinine Ratio 3.8 (No establ ref range) Glucose 91 (70-99) mg/dL Lactic Acid 0.7 (0.4-2.0) mmol/L Calcium 9.0 (8.5-10.1) mg/dL Total Bilirubin 0.5 (0.2-1.0) mg/dL AST 20 (15-37) U/L ALT 34 (14-59) U/L Alkaline Phosphatase 187 H (46-116) U/L C-Reactive Protein 0.3 (0.0-0.9) mg/dL Total Protein 7.4 (6.4-8.2) g/dL Albumin 3.9 (3.4-5.0) g/dL Globulin 3.5 Albumin/Globulin Ratio 1.1 Urine Color (YELLOW) Urine Appearance (CLEAR) Urine pH (5.0-9.0) Ur Specific [place] (1.005-1.030) Urine Protein (NEGATIVE) Urine Glucose (UA) (NEGATIVE) Urine Ketones (NEGATIVE) Urine Occult Blood (NEGATIVE) Urine Nitrite (NEGATIVE) Urine Bilirubin (NEGATIVE) Urine Urobilinogen (0.2-1.0) mg/dL Ur Leukocyte Esterase (NEGATIVE) Urine RBC /HPF Urine WBC (0-5/HPF) /HPF Ur Epithelial Cells (NOT SEEN) /HPF Urine Bacteria (0-FEW/HPF) /HPF Urine HCG, Qual Urine Opiates Screen (NEGATIVE) Ur Oxycodone Screen (NEGATIVE) Urine Methadone Screen (NEGATIVE) Ur Barbiturates Screen (NEGATIVE) U Tricyclic Antidepress (NEGATIVE) Ur Phencyclidine Scrn (NEGATIVE) Ur Amphetamine Screen (NEGATIVE) U Methamphetamines Scrn (NEGATIVE) Urine MDMA Screen (NEGATIVE) U Benzodiazepines Scrn (NEGATIVE) Urine Cocaine Screen (NEGATIVE) U Marijuana (THC) Screen (NEGATIVE) 10/29/20 10/29/20 10/29/20 Range/Units 21:08 21:08 21:08 WBC (5.0-10.0) 10^3/uL RBC (4.2-5.4) 10^6/uL Hgb (12.0-16.0) g/dL Hct (37.0-47.0) % MCV (80-100) fL MCH (27.0-34.0) pg MCHC (33.0-35.0) g/dL Plt Count (150-450) 10^3/uL Neut % (Auto) (42.2-75.2) % Lymph % (Auto) (20.5-50.1) % [place] % (Auto) (2-8) % Eos % (Auto) (1.0-3.0) % Baso % (Auto) (0.0-1.0) % Sodium (136-145) mmol/L Potassium (3.5-5.1) mmol/L Chloride (98-107) mmol/L Carbon Dioxide (21-32) mmol/L Anion Gap (7-13) mEq/L BUN (7-18) mg/dL Creatinine (0.55-1.02) mg/dL Est Cr Clr Drug Dosing mL/min Estimated GFR (MDRD) BUN/Creatinine Ratio (No establ ref range) Glucose (70-99) mg/dL Lactic Acid (0.4-2.0) mmol/L Calcium (8.5-10.1) mg/dL Total Bilirubin (0.2-1.0) mg/dL AST (15-37) U/L ALT (14-59) U/L Alkaline Phosphatase (46-116) U/L C-Reactive Protein (0.0-0.9) mg/dL Total Protein (6.4-8.2) g/dL Albumin (3.4-5.0) g/dL Globulin Albumin/Globulin Ratio Urine Color Yellow (YELLOW) Urine Appearance Clear (CLEAR) Urine pH 7.0 (5.0-9.0) Ur Specific [place] 1.025 (1.005-1.030) Urine Protein Negative (NEGATIVE) Urine Glucose (UA) Negative (NEGATIVE) Urine Ketones Negative (NEGATIVE) Urine Occult Blood Trace-intact H (NEGATIVE) Urine Nitrite Negative (NEGATIVE) Urine Bilirubin Negative (NEGATIVE) Urine Urobilinogen 0.2 (0.2-1.0) mg/dL Ur Leukocyte Esterase Negative (NEGATIVE) Urine RBC 0-5 /HPF Urine WBC 0-5 (0-5/HPF) /HPF Ur Epithelial Cells Many H (NOT SEEN) /HPF Urine Bacteria Few (0-FEW/HPF) /HPF Urine HCG, Qual Negative Urine Opiates Screen Negative (NEGATIVE) Ur Oxycodone Screen Negative (NEGATIVE) Urine Methadone Screen Negative (NEGATIVE) Ur Barbiturates Screen Negative (NEGATIVE) U Tricyclic Antidepress Positive H (NEGATIVE) Ur Phencyclidine Scrn Negative (NEGATIVE) Ur Amphetamine Screen Negative (NEGATIVE) U Methamphetamines Scrn Negative (NEGATIVE) Urine MDMA Screen Negative (NEGATIVE) U Benzodiazepines Scrn Negative (NEGATIVE) Urine Cocaine Screen Negative (NEGATIVE) U Marijuana (THC) Screen Positive H (NEGATIVE) Meds: Medications Discontinued Medications Generic Name Dose Route Start Last Admin Trade Name Freq PRN Reason Stop Dose Admin Dexamethasone 4 mg 10/29/20 22:37 Dexamethasone 4 Mg/Ml Sdv IM 10/29/20 22:38 ONETIME ONE Morphine Sulfate 2 mg 10/29/20 22:37 Morphine 2 Mg/Ml Syringe IM 10/29/20 22:38 ONETIME ONE Orphenadrine Citrate 60 mg 10/29/20 22:38 Orphenadrine 60 Mg/2 Ml Inj IM 10/29/20 22:39 ONETIME ONE - Radiology Interpretation Free Text/Narrative:: CT lumbar spine: PROCEDURE INFORMATION: Exam: CT Lumbar Spine Without Contrast Exam date and time: 10/29/2020 9:58 PM Age: 25 years old Clinical indication: Other: Low l-spine pain with possible abscess low l-spine--no trauma; Additional info: Low back pain and swelling, rule out abscess TECHNIQUE: Imaging protocol: Computed tomography images of the lumbar spine without contrast. Radiation optimization: All CT scans at this facility use at least one of these dose optimization techniques: automated exposure control; mA and/or kV adjustment per patient size (includes targeted exams where dose is matched to clinical indication); or iterative reconstruction. COMPARISON: No relevant prior studies available. FINDINGS: Vertebrae: No acute fracture. Normal alignment. Discs/Spinal canal/Neural foramina: No significant disc protrusion. No severe spinal canal stenosis. No significant neural foraminal narrowing. Soft tissues: Unremarkable. IMPRESSION: No acute findings. Thank you for allowing us to participate in the care of your patient. Dictated and Authenticated by: Sam Hernandes MD 10/29/2020 10:33 PM Central Time ([place] & [place]) See rad report Departure - Departure Time of Disposition: 22:45 Disposition: Home, Self-Care 01 Condition: Fair Clinical Impression: Sciatica Qualifiers: Laterality: right Qualified Code(s): M54.31 - Sciatica, right side Low back strain Qualifiers: Encounter type: initial encounter Qualified Code(s): S39.012A - Strain of muscle, fascia and tendon of lower back, initial encounter - Discharge Information *PRESCRIPTION DRUG MONITORING PROGRAM REVIEWED*: No *COPY OF PRESCRIPTION DRUG MONITORING REPORT IN PATIENT DORI: No Instructions: Muscle Strain, [id number], Sciatica, [id number], Back Injury Prevention, [id number], Lumbar Strain Forms: ED Department Discharge Additional Instructions: Alternate heat and ice to the low back May use Tylenol as directed for pain Rx: Dexamethasone 2 mg orally twice daily for 4 more days (2 sent home, prescription for 6) Continue to take your already prescribed cyclobenzaprine as directed Rest No heavy lifting Return to the ER with any worsening of problems Follow-up with your primary care provider next week Sepsis Event Note (ED) - Evaluation Sepsis Screening Result: No Definite Risk - Focused Exam Vital Signs: Vital Signs Temp Pulse Resp BP Pulse Ox 10/29/20 20:19 97.2 F 92 16 107/79 100 - My Orders Last 24 Hours: My Active Orders 10/29/20 21:00 CULTURE BLOOD [BC] Stat 10/29/20 22:44 Morphine 2 mg IVPUSH ONETIME ONE dexAMETHasone [Decadron] 4 mg IV ONETIME ONE - Assessment/Plan Last 24 Hours: My Active Orders 10/29/20 21:00 CULTURE BLOOD [BC] Stat 10/29/20 22:44 Morphine 2 mg IVPUSH ONETIME ONE dexAMETHasone [Decadron] 4 mg IV ONETIME ONE
[2020-10-29 21:30] LABS: ANION GAP 12.7 mEq/L (7-13); CHLORIDE,CL 107 mmol/L (98-107); SODIUM,NA 143 mmol/L (136-145)
--- NOTE | 2020-10-29 22:34 | CT ---
PROCEDURE INFORMATION: Exam: CT Lumbar Spine Without Contrast Exam date and time: 10/29/2020 9:58 PM Age: 25 years old Clinical indication: Other: Low l-spine pain with possible abscess low l-spine--no trauma; Additional info: Low back pain and swelling, rule out abscess TECHNIQUE: Imaging protocol: Computed tomography images of the lumbar spine without contrast. Radiation optimization: All CT scans at this facility use at least one of these dose optimization techniques: automated exposure control; mA and/or kV adjustment per patient size (includes targeted exams where dose is matched to clinical indication); or iterative reconstruction. COMPARISON: No relevant prior studies available. FINDINGS: Vertebrae: No acute fracture. Normal alignment. Discs/Spinal canal/Neural foramina: No significant disc protrusion. No severe spinal canal stenosis. No significant neural foraminal narrowing. Soft tissues: Unremarkable. IMPRESSION: No acute findings.
[2020-10-29] MEDS ORDERED: Dexamethasone 4 MG/ML SDV IM ONE (22:37)
[2020-10-29] MEDS ORDERED: Morphine 2 MG/ML SYRINGE IM ONE (22:37)
[2020-10-29] MEDS ORDERED: Orphenadrine 60 MG/2 ML Inj IM ONE (22:38)
[2020-10-29] MEDS: Morphine 2 MG/ML SYRINGE IVPUSH ONE (22:46)
[2020-10-29] MEDS: Dexamethasone 4 MG/ML SDV IV ONE (22:46)
[2020-10-29] MEDS ORDERED: Dexamethasone 2 MG Tab ONE (22:57)
== END 2020-10-29 23:04 | disposition home or self-care (01) ==
LOC: DL.ED 20:02
DX: S39.012A Strain of muscle, fascia and tendon of lower back, initial encounter (principal); M54.41 Lumbago with sciatica, right side; Z72.0 Tobacco use; Z88.8 Allergy status to other drugs, medicaments and biological substances; X50.0XXA Overexertion from strenuous movement or load, initial encounter
CPT/HCPCS: 36415; 72131; 80053; 80305; 81001; 81025; 83605; 85025; 86140; 87040; 96374; 96375; 99284; J1100; J2270; J8540

== ENCOUNTER 2020-12-22 11:46 | Emergency (ER) | payer MEDICAID ==
[2020-12-22 12:05] VITALS: BP 134/90; PULSE 93
[2020-12-22] MEDS ORDERED: Ketorolac 30 MG/ML SDV IM ONE (13:55)
[2020-12-22] MEDS ORDERED: cefTRIAXone 1 GM, Lidocaine 1% 2.1 ML IM ONE ×2 (13:55)
--- NOTE | 2020-12-22 14:05 | EDM.PDOC ---
ED HPI GENERAL MEDICAL PROBLEM - General Chief Complaint: ENT Problem Stated Complaint: [id number] LEFT SIDE OF FACE PUFFY HURT TO ADVENT Time Seen by Provider: 12/22/20 13:40 Source of Information: Reports: Patient, RN, RN Notes Reviewed History Limitations: Reports: No Limitations - History of Present Illness INITIAL COMMENTS - FREE TEXT/NARRATIVE: Jesus is a 25 y/o female who presents to the ED via personal vehicle with her boyfriend for complaints of left dental pain and left cheek swelling. The patient reports her symptoms began last night and have progressively worsened in that time. She attest to subjective fever and mild headache. She denies shaking chills, vision changes, dizziness, palpitations, nausea, vomiting, or diarrhea. The patient attests to a history of broken teeth but notes she has not been to a dentist in quite some time. She currently takes Suboxone and gabapentin which has not provided alleviation of her pain. Treatments CSR: Reports: Acetaminophen, Other Medication(s) left face Pain Score (Numeric/FACES): 10 - Related Data Allergies Allergy/AdvReac Type Severity Reaction Status Date / Time ibuprofen [From Motrin] Allergy Stomach Verified 12/22/20 12:05 Upset Home Meds: Home Meds Iron 18 mg PO DAILY 10/01/19 [History] Buprenorphine/Naloxone [Buprenorphine-Naloxone 8 MG-2 MG] 2 tab SL DAILY 06/09/20 [History] Cyclobenzaprine [Flexeril] 10 mg PO Q8H PRN 06/09/20 [History] Gabapentin [Neurontin] 600 mg PO BID 06/09/20 [History] Pregabalin [Lyrica] 50 mg PO DAILY 10/29/20 [History] Past Medical History - Past Health History Medical/Surgical History: Denies Medical/Surgical History HEENT History: Reports: None Cardiovascular History: Reports: None Respiratory History: Reports: None Gastrointestinal History: Reports: Chronic Constipation, GERD, Hemorrhoids Genitourinary History: Reports: None 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: hx of preeclampsia Musculoskeletal History: Reports: None Neurological History: Reports: None Psychiatric History: Reports: Depression, Suicide Attempt, Suicidal Ideation Endocrine/Metabolic History: Reports: None Hematologic History: Reports: None Immunologic History: Reports: None Oncologic (Cancer) History: Reports: None Dermatologic History: Reports: Eczema - Infectious Disease History Infectious Disease History: Reports: None - Past Surgical History Head Surgeries/Procedures: Reports: None HEENT Surgical History: Reports: Oral Surgery GI Surgical History: Reports: Cholecystectomy Social & Family History - Family History Family Medical History: No Pertinent Family History - Tobacco Use Tobacco Use Status *Q: Current Every Day Tobacco User Years of Tobacco use: 5 Packs/Tins Daily: 0.5 Used Tobacco, but Quit: No Second Hand Smoke Exposure: Yes - Caffeine Use Caffeine Use: Reports: Energy Drinks, Soda Other Caffeine Use: 3-4 sodas per day - Recreational Drug Use Recreational Drug Use: Yes Recreational Drug Type: Reports: Marijuana/Hashish Recreational Drug Use Frequency: Daily - Sexual History Sexual History: Reports: Sexually Active - Living Situation & Occupation Living situation: Reports: with Family ED ROS ENT - Review of Systems Review Of Systems: Comprehensive ROS is negative, except as noted in HPI. ED EXAM, ENT - Physical Exam Exam: See Below Exam Limited By: No Limitations General Appearance: Alert, Mild Distress (Pain to left face and left teeth) Eye Exam: Bilateral Eye: EOMI, Normal Inspection, PERRL (3mm) Ears: Normal External Exam, Normal Canal, Hearing Grossly Normal, Normal TMs, Auricular Erythema (Pre-auricular), Auricular Tenderness (Pre-auricular). No: Auricular Ecchymosis, Mastoid Swelling, Mastoid Tenderness, TM Bulging, TM Dullness, TM Erythema, TM Blood, TM Fluid, TM Perforation, TM Vesicles, TM Obscured by Cerumen Nose: Normal Inspection, Normal Mucousa, No Blood Mouth/Throat: Dental Abcess (To left maxilla), Dental Pain (To left maxilla), Dental Tenderness (To teeth 15 and 16), Other (Poor dentition with multiple missing/chipped teeth). No: Hoarse Voice, Lip Swelling, Lip Ulcers, Muffled Voice, Pharyngeal Erythema, Teething, Throat Pain, Throat Swelling, Tongue Swelling, Tonsillar Erythema, Tonsillar Exudates, Tonsillar Swelling, Uvular Deviation, Uvular Edema Head: Atraumatic, Normocephalic Neck: Normal Inspection, Supple, Non-Tender, Full Range of Motion. No: Lymphadenopathy (L), Lymphadenopathy (R) Respiratory/Chest: No Respiratory Distress, Lungs Clear, No Accessory Muscle Use, Chest Non-Tender Cardiovascular: Normal Peripheral Pulses, Regular Rate, Rhythm, No Gallop, No Murmur, No Rub GI/Abdominal: Normal Bowel Sounds, Soft, Non-Tender Extremities: Normal Inspection, Normal Range of Motion Neurological: Alert, Oriented, CN II-XII Intact, Normal Cognition, Normal Gait, No Motor/Sensory Deficits Psychiatric: Normal Affect, Normal Mood Skin: Warm, Dry, Intact, No Rash, Erythema (To left cheek). No: Jaundice, Mottled, Pallor Lymphatic: No Adenopathy Course - Vital Signs Last Recorded V/S: Last Vital Signs Temp 98.1 F 12/22/20 13:25 Pulse 93 12/22/20 13:25 Resp 18 12/22/20 13:25 BP 134/90 12/22/20 13:25 Pulse Ox 98 12/22/20 13:25 - Orders/Labs/Meds Meds: Medications Discontinued Medications Generic Name Dose Route Start Last Admin Trade Name Denisq PRN Reason Stop Dose Admin Ceftriaxone Sodium 1 gm/ 0 gm 12/22/20 13:55 12/22/20 14:06 Lidocaine HCl 2.1 ml IM 12/22/20 13:56 1 inj ONETIME ONE Administration Ketorolac Tromethamine 60 mg 12/22/20 13:55 12/22/20 14:07 Ketorolac 30 Mg/Ml Sdv IM 12/22/20 13:56 60 mg ONETIME ONE Administration - Re-Assessments/Exams Free Text/Narrative Re-Assessment/Exam: 12/22/20 Toradol 60mg IM and Rocephin 1gm administered. Findings of examination reviewed with patient. Will treat dental infection with Clindamycin 300mg QID x10 days #40. Patient instructed to follow up with primary care dentist in 2-3 days. Discussed supportive cares for dental pain. Red flag signs and symptoms which would warrant reevaluation reviewed. Patient verbalized understanding and agreement with the plan of care. Departure - Departure Time of Disposition: 14:00 Disposition: Home, Self-Care 01 Condition: Fair Clinical Impression: Dental infection, Dental abscess, Dental caries, Poor dentition - Discharge Information *PRESCRIPTION DRUG MONITORING PROGRAM REVIEWED*: Not Applicable *COPY OF PRESCRIPTION DRUG MONITORING REPORT IN PATIENT DORI: Not Applicable Instructions: Dental Caries, Adult Forms: ED Department Discharge Additional Instructions: Rx: clindamycin 1.) Take all of your antibiotic until gone, even as symptoms improve. 2.) Follow up with your primary care dentist in 2-3 days regarding today's visit. 3.) Eat soft foods while experiencing dental pain. 4.) Avoid smoking while experiencing dental pain. 5.) Return to the emergency department with any fever >101.5 that does not reduce with medications, shaking chills, throat tightness, difficulty swallowing, or increasing pain despite medications. 6.) You may take acetaminophen (Tylenol) 650-1000mg every six hours, as pain persists. 7.) You may apply cold compresses and use Orajel, as pain persists. Sepsis Event Note (ED) - Evaluation Sepsis Screening Result: No Definite Risk - Focused Exam Vital Signs: Vital Signs Temp Pulse Resp BP Pulse Ox 12/22/20 13:25 98.1 F 93 18 134/90 98 12/22/20 12:01 98.1 F 93 18 134/90 98
== END 2020-12-22 14:17 | disposition home or self-care (01) ==
LOC: DL.ED 11:46
DX: K04.7 Periapical abscess without sinus (principal); K02.9 Dental caries, unspecified; K00.7 Teething syndrome; Z88.8 Allergy status to other drugs, medicaments and biological substances; Z72.0 Tobacco use
CPT/HCPCS: 96372; 99283; J0696; J1885

== ENCOUNTER 2020-12-23 16:35 | Emergency (ER) | payer MEDICAID ==
[2020-12-23 16:58] VITALS: BP 129/83; PULSE 91
[2020-12-23] MEDS ORDERED: Ketorolac 30 MG/ML SDV IVPUSH ONE (17:52)
[2020-12-23 18:12] LABS: METHAMPHETAMINES,URINE NEGATIVE (NEGATIVE)
[2020-12-23 18:13] LABS: AMPHETAMINES,URINE NEGATIVE (NEGATIVE); BARBITURATES,URINE NEGATIVE (NEGATIVE); BENZODIAZEPINE,URINE NEGATIVE (NEGATIVE); MDMA (ECSTASY), URINE NEGATIVE (NEGATIVE); METHADONE,URINE NEGATIVE (NEGATIVE); OPIATES,URINE NEGATIVE (NEGATIVE); OXYCODONE,URINE NEGATIVE (NEGATIVE); PHENCYCLIDINE,URINE NEGATIVE (NEGATIVE); TCA,URINE NEGATIVE (NEGATIVE)
[2020-12-23 18:20] LABS: ANION GAP 14.1 mEq/L (7-13); CHLORIDE,CL 102 mmol/L (98-107); SODIUM,NA 140 mmol/L (136-145)
--- NOTE | 2020-12-23 18:41 | EDM.PDOC ---
Scribed by Alia Osei 12/23/20 3610 for Lluvia Campbell NP <Lluvia Campbell - Last Filed: 12/23/20 18:40> ED HPI GENERAL MEDICAL PROBLEM - General Chief Complaint: ENT Problem Stated Complaint: BOTH SIDES OF MOUTH. HARD TO SWALLOW...HURTS Time Seen by Provider: 12/23/20 17:28 Source of Information: Reports: Patient, RN, RN Notes Reviewed History Limitations: Reports: No Limitations - History of Present Illness INITIAL COMMENTS - FREE TEXT/NARRATIVE: Patient is a 25-year-old female who presents to ER with complaint of throat pain. She was seen yesterday in ER for dental abscess. States worsening--unable to eat. She has had fever T-max 102, chills, nausea, vomiting and diarrhea. No chest pains or shortness of breath. She states she has been taking Clindamycin. She took Tylenol which is not working. She took a gabapentin that is also not working. She ran out of Suboxone. Onset: Gradual Duration: Getting Worse Location: Reports: Other (throat) Quality: Reports: Ache Severity: Severe Improves with: Reports: None Worsens with: Reports: None Associated Symptoms: Reports: No Other Symptoms Left Oral/Mouth Pain Score (Numeric/FACES): 8 - Related Data Allergies Allergy/AdvReac Type Severity Reaction Status Date / Time ibuprofen [From Motrin] Allergy Stomach Verified 12/23/20 16:48 Upset Home Meds: Home Meds Iron 18 mg PO DAILY 10/01/19 [History] Buprenorphine/Naloxone [Buprenorphine-Naloxone 8 MG-2 MG] 2 tab SL DAILY 06/09/20 [History] Cyclobenzaprine [Flexeril] 10 mg PO Q8H PRN 06/09/20 [History] Gabapentin [Neurontin] 600 mg PO BID 06/09/20 [History] Pregabalin [Lyrica] 50 mg PO DAILY 10/29/20 [History] Past Medical History - Past Health History Medical/Surgical History: Denies Medical/Surgical History HEENT History: Reports: None Cardiovascular History: Reports: None Respiratory History: Reports: None Gastrointestinal History: Reports: Chronic Constipation, GERD, Hemorrhoids Genitourinary History: Reports: None 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 12/23/20 LMP last week Musculoskeletal History: Reports: None Neurological History: Reports: None Psychiatric History: Reports: Depression, Suicide Attempt, Suicidal Ideation Endocrine/Metabolic History: Reports: None Hematologic History: Reports: None Immunologic History: Reports: None Oncologic (Cancer) History: Reports: None Dermatologic History: Reports: Eczema - Infectious Disease History Infectious Disease History: Reports: None - Past Surgical History Head Surgeries/Procedures: Reports: None HEENT Surgical History: Reports: Oral Surgery GI Surgical History: Reports: Cholecystectomy Social & Family History - Family History Family Medical History: No Pertinent Family History - Tobacco Use Tobacco Use Status *Q: Current Every Day Tobacco User Years of Tobacco use: 8 Packs/Tins Daily: 0.5 - Caffeine Use Caffeine Use: Reports: Energy Drinks, Soda Other Caffeine Use: 3-4 sodas per day - Sexual History Sexual History: Reports: Sexually Active - Living Situation & Occupation Living situation: Reports: with Family ED ROS ENT - Review of Systems Review Of Systems: Comprehensive ROS is negative, except as noted in HPI. ED EXAM, ENT - Physical Exam Exam: See Below Exam Limited By: No Limitations General Appearance: Alert, WD/WN, Moderate Distress, Other (crying on exam) Eye Exam: Bilateral Eye: EOMI, Normal Inspection, PERRL Ears: Normal External Exam, Normal Canal, Hearing Grossly Normal, Normal TMs Nose: Normal Inspection, Normal Mucousa, No Blood Mouth/Throat: Normal Inspection, Normal Gums, Normal Lips, Normal Oropharynx, Normal Teeth Head: Facial Swelling (and tenderness) Neck: Normal Inspection, Supple, Non-Tender, Full Range of Motion Respiratory/Chest: No Respiratory Distress, Lungs Clear, Normal Breath Sounds, No Accessory Muscle Use, Chest Non-Tender Cardiovascular: Normal Peripheral Pulses, Regular Rate, Rhythm, No Edema, No Gallop, No JVD, No Murmur, No Rub GI/Abdominal: Normal Bowel Sounds, Soft, Non-Tender, No Organomegaly, No Distention, No Abnormal Bruit, No Mass (Female) Exam: Deferred Rectal (Female) Exam: Deferred Back: Normal Inspection, Full Range of Motion Extremities: Normal Inspection, Normal Range of Motion, Non-Tender, No Pedal Edema, Normal Capillary Refill Neurological: Alert, Oriented, CN II-XII Intact, Normal Cognition, Normal Gait, Normal Reflexes, No Motor/Sensory Deficits Psychiatric: Anxious, Other (crying) Skin: Warm, Dry, Intact, Normal Color, No Rash Lymphatic: No Adenopathy Departure - Departure Disposition: Home, Self-Care 01 Clinical Impression: Dental infection - Discharge Information Instructions: Dental Pain, [id number] Forms: ED Department Discharge Additional Instructions: Continue antibiotics Tylenol and ice therapy as needed for pain Follow up with primary care provider in 3-5 days <Henrietta Odom - Last Filed: 12/23/20 19:35> Course - Vital Signs Last Recorded V/S: Last Vital Signs Temp 99 F 12/23/20 16:40 Pulse 91 12/23/20 16:40 Resp 16 12/23/20 16:40 BP 129/83 12/23/20 16:40 Pulse Ox 98 12/23/20 16:40 - Orders/Labs/Meds Orders: Active Orders 24 hr Category Date Time Status CULTURE BLOOD [BC] Stat Lab 12/23/20 17:50 Received CULTURE BLOOD [BC] Stat Lab 12/23/20 17:55 Received CULTURE URINE [RM] Stat Lab 12/23/20 17:35 Received Blood Culture x2 Reflex Set [OM.PC] Stat Oth 12/23/20 17:28 Ordered Labs: Laboratory Tests 12/23/20 12/23/20 12/23/20 Range/Units 17:35 17:35 17:35 WBC (5.0-10.0) 10^3/uL RBC (4.2-5.4) 10^6/uL Hgb (12.0-16.0) g/dL Hct (37.0-47.0) % MCV (80-100) fL MCH (27.0-34.0) pg MCHC (33.0-35.0) g/dL Plt Count (150-450) 10^3/uL Neut % (Auto) (42.2-75.2) % Lymph % (Auto) (20.5-50.1) % Kimble % (Auto) (2-8) % Eos % (Auto) (1.0-3.0) % Baso % (Auto) (0.0-1.0) % Sodium (136-145) mmol/L Potassium (3.5-5.1) mmol/L Chloride (98-107) mmol/L Carbon Dioxide (21-32) mmol/L Anion Gap (7-13) mEq/L BUN (7-18) mg/dL Creatinine (0.55-1.02) mg/dL Est Cr Clr Drug Dosing mL/min Estimated GFR (MDRD) BUN/Creatinine Ratio (No establ ref range) Glucose (70-99) mg/dL Lactic Acid (0.4-2.0) mmol/L Calcium (8.5-10.1) mg/dL Total Bilirubin (0.2-1.0) mg/dL AST (15-37) U/L ALT (14-59) U/L Alkaline Phosphatase (46-116) U/L Total Protein (6.4-8.2) g/dL Albumin (3.4-5.0) g/dL Globulin Albumin/Globulin Ratio Urine Color Yellow (YELLOW) Urine Appearance Slightly cloudy (CLEAR) Urine pH 6.5 (5.0-9.0) Ur Specific [place] >= 1.030 (1.005-1.030) Urine Protein Negative (NEGATIVE) Urine Glucose (UA) Negative (NEGATIVE) Urine Ketones Negative (NEGATIVE) Urine Occult Blood Negative (NEGATIVE) Urine Nitrite Negative (NEGATIVE) Urine Bilirubin Negative (NEGATIVE) Urine Urobilinogen 0.2 (0.2-1.0) mg/dL Ur Leukocyte Esterase Trace H (NEGATIVE) Urine RBC 0-5 (0-5) /HPF Urine WBC 20-30 H (0-5/HPF) /HPF Ur Epithelial Cells Few (NOT SEEN) /HPF Amorphous Sediment Occasional (NOT SEEN) /HPF Urine Bacteria Few (0-FEW/HPF) /HPF Urine Mucus Few H (NOT SEEN) /LPF Urine HCG, Qual Negative Urine Opiates Screen Negative (NEGATIVE) Ur Oxycodone Screen Negative (NEGATIVE) Urine Methadone Screen Negative (NEGATIVE) Ur Barbiturates Screen Negative (NEGATIVE) U Tricyclic Antidepress Negative (NEGATIVE) Ur Phencyclidine Scrn Negative (NEGATIVE) Ur Amphetamine Screen Negative (NEGATIVE) U Methamphetamines Scrn Negative (NEGATIVE) Urine MDMA Screen Negative (NEGATIVE) U Benzodiazepines Scrn Negative (NEGATIVE) Urine Cocaine Screen Negative (NEGATIVE) U Marijuana (THC) Screen Positive H (NEGATIVE) 12/23/20 12/23/20 12/23/20 Range/Units 17:50 17:50 17:50 WBC 11.4 H (5.0-10.0) 10^3/uL RBC 5.45 H (4.2-5.4) 10^6/uL Hgb 15.6 (12.0-16.0) g/dL Hct 46.0 (37.0-47.0) % MCV 84.4 (80-100) fL MCH 28.6 (27.0-34.0) pg MCHC 33.9 (33.0-35.0) g/dL Plt Count 334 (150-450) 10^3/uL Neut % (Auto) 80.9 H (42.2-75.2) % Lymph % (Auto) 13.7 L (20.5-50.1) % Kimble % (Auto) 4.0 (2-8) % Eos % (Auto) 1.2 (1.0-3.0) % Baso % (Auto) 0.2 (0.0-1.0) % Sodium 140 (136-145) mmol/L Potassium 4.1 (3.5-5.1) mmol/L Chloride 102 (98-107) mmol/L Carbon Dioxide 28 (21-32) mmol/L Anion Gap 14.1 H (7-13) mEq/L BUN 5 L (7-18) mg/dL Creatinine 0.79 (0.55-1.02) mg/dL Est Cr Clr Drug Dosing 98.29 mL/min Estimated GFR (MDRD) > 60 BUN/Creatinine Ratio 6.3 (No establ ref range) Glucose 99 (70-99) mg/dL Lactic Acid 1.1 (0.4-2.0) mmol/L Calcium 9.2 (8.5-10.1) mg/dL Total Bilirubin 0.7 (0.2-1.0) mg/dL AST 23 (15-37) U/L ALT 27 (14-59) U/L Alkaline Phosphatase 183 H (46-116) U/L Total Protein 7.6 (6.4-8.2) g/dL Albumin 3.7 (3.4-5.0) g/dL Globulin 3.9 Albumin/Globulin Ratio 0.9 Urine Color (YELLOW) Urine Appearance (CLEAR) Urine pH (5.0-9.0) Ur Specific [place] (1.005-1.030) Urine Protein (NEGATIVE) Urine Glucose (UA) (NEGATIVE) Urine Ketones (NEGATIVE) Urine Occult Blood (NEGATIVE) Urine Nitrite (NEGATIVE) Urine Bilirubin (NEGATIVE) Urine Urobilinogen (0.2-1.0) mg/dL Ur Leukocyte Esterase (NEGATIVE) Urine RBC (0-5) /HPF Urine WBC (0-5/HPF) /HPF Ur Epithelial Cells (NOT SEEN) /HPF Amorphous Sediment (NOT SEEN) /HPF Urine Bacteria (0-FEW/HPF) /HPF Urine Mucus (NOT SEEN) /LPF Urine HCG, Qual Urine Opiates Screen (NEGATIVE) Ur Oxycodone Screen (NEGATIVE) Urine Methadone Screen (NEGATIVE) Ur Barbiturates Screen (NEGATIVE) U Tricyclic Antidepress (NEGATIVE) Ur Phencyclidine Scrn (NEGATIVE) Ur Amphetamine Screen (NEGATIVE) U Methamphetamines Scrn (NEGATIVE) Urine MDMA Screen (NEGATIVE) U Benzodiazepines Scrn (NEGATIVE) Urine Cocaine Screen (NEGATIVE) U Marijuana (THC) Screen (NEGATIVE) Meds: Medications Discontinued Medications Generic Name Dose Route Start Last Admin Trade Name Freq PRN Reason Stop Dose Admin Ketorolac Tromethamine 30 mg 12/23/20 17:52 12/23/20 18:03 Ketorolac 30 Mg/Ml Sdv IVPUSH 12/23/20 17:53 30 mg ONETIME ONE Administration - Radiology Interpretation Free Text/Narrative:: CT maxillofacial: IMPRESSION: Periapical lucency surrounding the roots of the left upper 1st molar, but there is no evidence of fracture or bienvenido abscess. - Re-Assessments/Exams Free Text/Narrative Re-Assessment/Exam: Reviewed CT results with the pt. Advised to continue antibiotics and OTC meds as needed for pain control. Follow up with PCP in 3-5 days. 12/23/20 19:33 Departure - Departure Time of Disposition: 19:33 Condition: Good - Discharge Information *PRESCRIPTION DRUG MONITORING PROGRAM REVIEWED*: Not Applicable *COPY OF PRESCRIPTION DRUG MONITORING REPORT IN PATIENT DORI: Not Applicable Sepsis Event Note (ED) - Focused Exam Vital Signs: Vital Signs Temp Pulse Resp BP Pulse Ox 12/23/20 16:40 99 F 91 16 129/83 98 I have read and agree with the documentation that has been completed regarding this visit. By signing this record, I attest that the documentation was completed in my physical presence and is an accurate record of the encounter.
--- NOTE | 2020-12-23 19:26 | CT ---
PROCEDURE INFORMATION: Exam: CT Maxillofacial Without Contrast; Mandible Exam date and time: 12/23/2020 6:44 PM Age: 25 years old Clinical indication: Other: Bilateral upper teeth pain--no trauma; Additional info: ? Dental abscess, severe pain TECHNIQUE: Imaging protocol: Computed tomography maxillofacial without contrast. Exam focused on the mandible. Radiation optimization: All CT scans at this facility use at least one of these dose optimization techniques: automated exposure control; mA and/or kV adjustment per patient size (includes targeted exams where dose is matched to clinical indication); or iterative reconstruction. COMPARISON: No relevant prior studies available. FINDINGS: Bones/joints: No acute fracture or or evidence of bienvenido bone abscess. Paranasal sinuses: Mild bilateral ethmoid and left maxillary sinus mucosal thickening; no air-fluid levels. Soft tissues: Unremarkable. Dental: Periapical lucency surrounding the roots of tooth number 14. IMPRESSION: Periapical lucency surrounding the roots of the left upper 1st molar, but there is no evidence of fracture or bienvenido abscess.
== END 2020-12-23 19:48 | disposition home or self-care (01) ==
LOC: DL.ED 16:35
DX: K04.7 Periapical abscess without sinus (principal); Z88.8 Allergy status to other drugs, medicaments and biological substances; Z72.0 Tobacco use
CPT/HCPCS: 36415; 70486; 80053; 80305-QW; 81001; 81025; 83605; 85025; 87040; 87086; 96374; 99283-25; J1885

== ENCOUNTER 2020-12-29 17:40 | Emergency (ER) | payer MEDICAID ==
[2020-12-29 18:15] VITALS: BP 126/100; PULSE 97
== END 2020-12-29 18:43 | disposition left against medical advice (07) ==
LOC: DL.ED 17:40
DX: Z53.21 Procedure and treatment not carried out due to patient leaving prior to being seen by health care provider (principal)

== ENCOUNTER 2021-03-05 17:31 | Emergency (ER) | payer MEDICAID ==
[2021-03-05 18:39] VITALS: BP 125/60; PULSE 68
[2021-03-08 12:47] LABS: C.TRACHOMATIS BY TMA Negative (Negative); N.GONORRHOEAE BY TMA Negative (Negative)
== END 2021-03-05 20:49 | disposition left against medical advice (07) ==
LOC: DL.ED 17:31
DX: O99.891 Other specified diseases and conditions complicating pregnancy (principal); Z53.21 Procedure and treatment not carried out due to patient leaving prior to being seen by health care provider; Z3A.10 10 weeks gestation of pregnancy; Z20.822 Contact with and (suspected) exposure to COVID-19
CPT/HCPCS: 36415; 81001; 87491; 87563; 87591; 99283; U0002

== ENCOUNTER 2021-09-20 02:18 | Inpatient (IN) | payer MEDICAID ==
[2021-09-20] MEDS ORDERED: Penicillin G Potassium 5 MILLUNITS in Sodium Chloride 0.9% 100 ML IV ONE (02:58)
[2021-09-20] MEDS ORDERED: Lactated Ringers 1,000 ML IV ONE ×2 (03:21→04:20)
[2021-09-20] MEDS ORDERED: Ondansetron 4 MG/2 ML SDV IVPUSH PRN (04:20)
[2021-09-20] MEDS ORDERED: Misoprostol 400 MCG (4 X 100 MCG TAB) RECTAL PRN (04:20)
[2021-09-20] MEDS ORDERED: Lidocaine 1% 30 ML SDV INJECT PRN (04:20)
[2021-09-20] MEDS ORDERED: Methylergonovine 0.2 MG/1 ML Amp IM PRN (04:20)
[2021-09-20] MEDS ORDERED: Tranexamic Acid 1,000 MG in Sodium Chloride 0.9% 100 ML IV PRN (04:20)
[2021-09-20] MEDS ORDERED: Sodium Chloride 0.9% 10 ML Syringe FLUSH PRN ×2 (04:20→07:47)
[2021-09-20] MEDS ORDERED: Carboprost Tromethamine 250 MCG/1 ML Amp IM PRN (04:20)
[2021-09-20] MEDS: Lactated Ringers 1,000 ML IV SCH ×2 (04:28→05:27)
[2021-09-20] MEDS ORDERED: Oxytocin/Normal Saline 30 UNIT/500 ML BAG IV SCH (04:30)
[2021-09-20] MEDS ORDERED: Lactated Ringers 1,000 ML IV SCH (04:30)
[2021-09-20] MEDS ORDERED: fentaNYL 100 MCG/2 ML SDV ONE (04:43)
[2021-09-20] MEDS ORDERED: fentaNYL 100 MCG/2 ML SDV ITHECAL ONE (04:48)
[2021-09-20] MEDS ORDERED: Penicillin G Potassium 3 MILLUNITS in Sodium Chloride 0.9% 100 ML IV SCH (07:00)
[2021-09-20] MEDS ORDERED: Benzocaine/Menthol 20%-0.5% Spray 78 GM Cannister TOP PRN (07:47)
[2021-09-20] MEDS ORDERED: Simethicone 80 MG Tab.Chew PO PRN (07:47)
[2021-09-20] MEDS ORDERED: Ibuprofen 800 MG Tab PO PRN (07:47)
[2021-09-20] MEDS ORDERED: Oxytocin 10 Units/1 ML SDV IM PRN (07:47)
[2021-09-20] MEDS: Docusate Sodium 100 MG Cap PO PRN ×2 (10:46→19:56)
[2021-09-20] MEDS: Prenatal Multivitamin with Calcium/Folic Acid/Iron Tab PO SCH (10:46)
[2021-09-20] MEDS: Acetaminophen 325 MG Tab PO PRN (19:57)
[2021-09-20] MEDS ORDERED: Zolpidem 5 MG Tab PO PRN (21:00)
[2021-09-21] MEDS: Prenatal Multivitamin with Calcium/Folic Acid/Iron Tab PO SCH (09:02)
[2021-09-21] MEDS: Acetaminophen 325 MG Tab PO PRN ×2 (09:02→21:09)
[2021-09-21] MEDS: Docusate Sodium 100 MG Cap PO PRN (09:02)
[2021-09-22 10:00] VITALS: BP 136/88; PULSE 68
[2021-09-22] MEDS: Prenatal Multivitamin with Calcium/Folic Acid/Iron Tab PO SCH (12:00)
== END 2021-09-22 14:00 | disposition home or self-care (01) | DRG 807 ==
LOC: DL.OBCHECK 02:18 → DL.OB 04:20 → OBSVTOIN 07:32 → DL.OB 07:32 → DL.MS 09-21 15:11
PROVIDERS: ADMIT Family Medicine; ATTEND Family Medicine
PROC: 10E0XZZ Delivery of Products of Conception, External Approach (ICD-10-PCS; principal; 2021-09-20)
PROC: 10907ZC Drainage of Amniotic Fluid, Therapeutic from Products of Conception, Via Natural or Artificial Opening (ICD-10-PCS; 2021-09-20)
PROC: 4A1HXCZ Monitoring of Products of Conception, Cardiac Rate, External Approach (ICD-10-PCS; 2021-09-20)
PROC: 3E0R3BZ Introduction of Anesthetic Agent into Spinal Canal, Percutaneous Approach (ICD-10-PCS; 2021-09-20)
DX: O14.04 Mild to moderate pre-eclampsia, complicating childbirth (principal); Z37.0 Single live birth; Z3A.38 38 weeks gestation of pregnancy; O99.824 Streptococcus B carrier state complicating childbirth; O99.324 Drug use complicating childbirth; F11.90 Opioid use, unspecified, uncomplicated; Z20.822 Contact with and (suspected) exposure to COVID-19
CPT/HCPCS: 36415; 59409; 81003; 82565; 82570; 83615; 84156; 84450; 84460; 84520; 84550; 85027; A9270-GY; J2405; J2540; J2590; J3010; J7120; U0002

== ENCOUNTER 2021-10-24 00:02 | Emergency (ER) | payer OTHER, MEDICAID ==
[2021-10-24 00:40] VITALS: BP 131/97; PULSE 122
[2021-10-24 01:01] LABS: ANION GAP 13.6 mEq/L (7-13); CHLORIDE,CL 102 mmol/L (98-107); SODIUM,NA 138 mmol/L (136-145)
[2021-10-24 01:03] LABS: ESTIMATED GFR 92 mL/min (>=60)
== END 2021-10-24 03:30 | disposition home or self-care (01) ==
LOC: DL.ED 00:02
DX: S80.01XA Contusion of right knee, initial encounter (principal); S80.02XA Contusion of left knee, initial encounter; Z88.6 Allergy status to analgesic agent; V03.10XA Pedestrian on foot injured in collision with car, pick-up truck or van in traffic accident, initial encounter
CPT/HCPCS: 36415; 73560-LT; 73560-RT; 80053; 80307; 85025; 99284

== ENCOUNTER 2021-11-04 19:35 | Emergency (ER) | payer OTHER, MEDICAID ==
[2021-11-04 20:46] VITALS: BP 130/85; PULSE 89
[2021-11-04] MEDS ORDERED: Acetaminophen 325 MG Tab PO ONE (22:02)
== END 2021-11-04 22:42 | disposition home or self-care (01) ==
LOC: DL.ED 19:35
DX: S82.142A Displaced bicondylar fracture of left tibia, initial encounter for closed fracture (principal); V49.9XXA Car occupant (driver) (passenger) injured in unspecified traffic accident, initial encounter
CPT/HCPCS: 73560; 73590; 99283; A9270; 99282

== ENCOUNTER 2022-01-10 14:26 | Emergency (ER) | payer MEDICAID ==
[2022-01-10 14:45] VITALS: BP 131/86; PULSE 86
== END 2022-01-10 15:35 | disposition left against medical advice (07) ==
LOC: DL.ED 14:26
DX: Z53.21 Procedure and treatment not carried out due to patient leaving prior to being seen by health care provider (principal)

== ENCOUNTER 2022-04-02 19:47 | Emergency (ER) | payer MEDICAID ==
[2022-04-02 20:43] VITALS: BP 139/100; PULSE 117
[2022-04-02] MEDS ORDERED: Ketorolac 30 MG/ML SDV IM ONE (21:16)
[2022-04-02 22:06] LABS: CORONAVIRUS COVID-19 NAA NEGATIVE (NEGATIVE)
== END 2022-04-02 22:27 | disposition home or self-care (01) ==
LOC: DL.ED 19:47
DX: B34.9 Viral infection, unspecified (principal); J45.909 Unspecified asthma, uncomplicated; Z72.0 Tobacco use; Z88.6 Allergy status to analgesic agent; Z20.822 Contact with and (suspected) exposure to COVID-19
CPT/HCPCS: 0240U; 87081; 87430; 96372; 99283; J1885

== ENCOUNTER 2022-06-02 14:19 | Emergency (ER) | payer MEDICAID ==
[2022-06-02] MEDS ORDERED: Naloxone 2 MG/2 ML Syringe IVPUSH ONE (14:34)
[2022-06-02] MEDS ORDERED: Sodium Chloride 0.9% 10 ML Syringe FLUSH PRN (14:35)
[2022-06-02 15:11] LABS: PTT,PARTIAL THROMBOPLSTIN TIME 22.4 SEC (22.0-34.0)
[2022-06-02 15:12] LABS: AMPHETAMINES,URINE NEGATIVE (NEGATIVE); BARBITURATES,URINE NEGATIVE (NEGATIVE); BENZODIAZEPINE,URINE NEGATIVE (NEGATIVE); MDMA (ECSTASY), URINE NEGATIVE (NEGATIVE); METHADONE,URINE NEGATIVE (NEGATIVE); METHAMPHETAMINES,URINE NEGATIVE (NEGATIVE); OPIATES,URINE POSITIVE (NEGATIVE); OXYCODONE,URINE POSITIVE (NEGATIVE); PHENCYCLIDINE,URINE NEGATIVE (NEGATIVE); TCA,URINE NEGATIVE (NEGATIVE)
[2022-06-02 15:17] LABS: ANION GAP 15.8 mEq/L (7-13); CHLORIDE,CL 102 mmol/L (98-107); SODIUM,NA 139 mmol/L (136-145)
[2022-06-02 15:34] LABS: ESTIMATED GFR 86 mL/min (>=60)
[2022-06-02] MEDS ORDERED: Sodium Chloride 0.9% 1,000 ML IV ONE (15:50)
[2022-06-02] MEDS ORDERED: Acetaminophen 500 MG Tab PO ONE (15:51)
[2022-06-02 15:52] VITALS: BP 134/92; PULSE 90
== END 2022-06-02 18:03 | disposition home or self-care (01) ==
LOC: DL.ED 14:19
DX: H53.2 Diplopia (principal); R26.81 Unsteadiness on feet; R41.82 Altered mental status, unspecified; F19.10 Other psychoactive substance abuse, uncomplicated; Z88.6 Allergy status to analgesic agent; Z79.899 Other long term (current) drug therapy; Z86.16 Personal history of COVID-19; Z90.49 Acquired absence of other specified parts of digestive tract
CPT/HCPCS: 36415; 70450; 71045; 80053; 80305-QW; 80307; 81001; 81025; 82140; 82150; 83605; 83690; 83735; 84145; 84484; 85025; 85610; 85730; 86140; 87040; 93005; 93010; 96361; 96374; 99284; 99284-25; A9270-GY; J2310; J3490; J7030

== ENCOUNTER 2023-03-19 11:48 | Emergency (ER) | payer SELFPAY ==
[2023-03-19 12:38] VITALS: BP 132/90; PULSE 85
[2023-03-19 12:40] LABS: APPEARANCE,URINE SLIGHTLY CLOUDY (CLEAR); BILIRUBIN,URINE NEGATIVE (NEGATIVE); COLOR,URINE DARK YELLOW (YELLOW); GLUCOSE,URINE NEGATIVE (NEGATIVE); KETONES,URINE NEGATIVE (NEGATIVE); LEUKOCYTE ESTERASE,URINE NEGATIVE (NEGATIVE); NITRITE,URINE NEGATIVE (NEGATIVE); OCCULT BLOOD,URINE LARGE (NEGATIVE); PROTEIN,URINE TRACE (NEGATIVE); UROBILINOGEN,URINE 0.2 mg/dL (0.2-1.0)
[2023-03-19 12:48] LABS: BACTERIA,URINE NOT SEEN /HPF (0-FEW/HPF); EPITHELIAL CELLS,URINE FEW /HPF (NOT SEEN); MUCUS,URINE NOT SEEN /LPF (NOT SEEN); RBC,URINE SEMI-PACKED /HPF (0-5); WBC,URINE NOT SEEN /HPF (0-5/HPF)
== END 2023-03-19 13:10 | disposition home or self-care (01) ==
LOC: DL.ED 11:48
DX: N94.6 Dysmenorrhea, unspecified (principal); Z32.02 Encounter for pregnancy test, result negative; F17.210 Nicotine dependence, cigarettes, uncomplicated; Z86.16 Personal history of COVID-19; Z79.899 Other long term (current) drug therapy; Z88.8 Allergy status to other drugs, medicaments and biological substances
CPT/HCPCS: 81001; 81025; 99282; 99284

== ENCOUNTER 2024-03-20 07:00 | Inpatient (IN) | payer MEDICAID, OTHER ==
[2024-03-20] MEDS: Labetalol 20 MG/4 ML Syringe IVPUSH PRN (07:23)
[2024-03-20] MEDS: Lactated Ringers 1,000 ML IV SCH (07:37)
[2024-03-20] MEDS: Penicillin G Potassium 5 MILLUNITS in Sodium Chloride 0.9% 100 ML IV ONE (07:43)
[2024-03-20] MEDS ORDERED: Acetaminophen 325 MG Tab PO PRN (07:48)
[2024-03-20] MEDS ORDERED: Calcium Gluconate 10% 1 GM/10 ML SDV IVPUSH PRN (07:48)
[2024-03-20] MEDS ORDERED: Methylergonovine 0.2 MG/1 ML Amp IM PRN (07:48)
[2024-03-20] MEDS ORDERED: Misoprostol 100 MCG Tab RECTAL PRN (07:48)
[2024-03-20] MEDS ORDERED: Sodium Chloride 0.9% 10 ML Syringe FLUSH PRN ×2 (07:48→22:16)
[2024-03-20] MEDS: Magnesium Sulfate/Water Premix 4 GM in Premix Bag 1 BAG IV ONE (07:49)
[2024-03-20 08:09] LABS: HEMATOCRIT 31.1 % (37.0-47.0); HEMOGLOBIN 10.1 g/dL (12.0-16.0); MEAN CORPUSCULAR HEMOGLOBIN 26.8 pg (27.0-34.0); MEAN CORPUSCULAR HGB CONC 32.5 g/dL (33.0-35.0); MEAN CORPUSCULAR VOLUME 82.5 fL (80-100); RED BLOOD CELL COUNT 3.77 10^6/uL (4.2-5.4); WHITE BLOOD CELL COUNT,WBC 11.9 10^3/uL (5.0-10.0)
[2024-03-20] MEDS: Magnesium Sulfate/Water 20 GM/500 ML Premix Bag IV SCH (08:12)
[2024-03-20] MEDS ORDERED: Bupivacaine 0.25% 10 ML SDV ONE ×2 (08:13→19:12)
[2024-03-20 08:15] LABS: AMPHETAMINES,URINE POSITIVE (NEGATIVE); BARBITURATES,URINE NEGATIVE (NEGATIVE); BENZODIAZEPINE,URINE NEGATIVE (NEGATIVE); MDMA (ECSTASY), URINE NEGATIVE (NEGATIVE); METHADONE,URINE NEGATIVE (NEGATIVE); METHAMPHETAMINES,URINE POSITIVE (NEGATIVE); OPIATES,URINE NEGATIVE (NEGATIVE); OXYCODONE,URINE NEGATIVE (NEGATIVE); PHENCYCLIDINE,URINE NEGATIVE (NEGATIVE); TCA,URINE NEGATIVE (NEGATIVE)
[2024-03-20 08:26] LABS: ALANINE AMINOTRANSFERASE,ALT 13 U/L (14-59); ALBUMIN 1.4 g/dL (3.4-5.0); ALKALINE PHOSPHATASE 241 U/L (46-116); ASPARTATE AMNIOTRANSFERASE,AST 19 U/L (15-37); BILIRUBIN TOTAL 0.2 mg/dL (0.2-1.0); BLOOD UREA NITROGEN,BUN 9 mg/dL (7-18); BUN/CREATININE RATIO 11.2 (No establ ref range); CALCIUM 8.6 mg/dL (8.5-10.1); CARBON DIOXIDE,CO2 24 mmol/L (21-32); CHLORIDE,CL 105 mmol/L (98-107); GLUCOSE RANDOM 134 mg/dL (70-99); LACTATE DEHYDROGENASE,LDH 221 U/L (81-234); SODIUM,NA 137 mmol/L (136-145); URIC ACID 6.3 mg/dL (2.6-6.0)
[2024-03-20 08:29] LABS: A/G RATIO 0.39; ESTIMATED GFR 104 mL/min (>=60)
[2024-03-20 08:43] LABS: PROTEIN,URINE RANDOM > 500.0 mg/dL (0.0-11.9)
[2024-03-20] MEDS: ePHEDrine 50 MG/ML SDV IVPUSH ONE (08:43)
[2024-03-20] MEDS ORDERED: Phenylephrine HCl In 0.9% NaCl 1 MG/10 ML Syringe IVPUSH PRN (09:12)
[2024-03-20] MEDS ORDERED: Ropivacaine 200 MG in Premix Bag 1 BAG EPIDUR SCH (09:15)
[2024-03-20] MEDS: Magnesium Sulfate/Water Premix 100 ML ONE (09:27)
[2024-03-20] MEDS: ePHEDrine 50 MG/ML SDV ONE ×2 (09:30)
[2024-03-20] MEDS: Ondansetron 4 MG/2 ML SDV IVPUSH PRN (09:52)
[2024-03-20] MEDS: Buprenorphine/Naloxone 8-2 MG Tab.SL SL SCH (10:15)
[2024-03-20] MEDS: Gabapentin 300 MG Cap PO SCH (10:15)
[2024-03-20] MEDS: Oxytocin/Normal Saline 30 UNIT/500 ML BAG IV SCH (12:30)
[2024-03-20] MEDS: Penicillin G Potassium 3 MILLUNITS in Sodium Chloride 0.9% 100 ML IV SCH (12:44)
[2024-03-20] MEDS: ePHEDrine 50 MG/ML SDV IVPUSH PRN (20:31)
[2024-03-20] MEDS: Tranexamic Acid 1,000 MG in Sodium Chloride 0.9% 100 ML IV PRN (21:49)
[2024-03-20] MEDS: Carboprost Tromethamine 250 MCG/1 ML Amp IM PRN (22:03)
[2024-03-20] MEDS ORDERED: Benzocaine/Menthol 20%-0.5% Spray 78 GM Cannister TOP PRN (22:16)
[2024-03-20] MEDS ORDERED: Hydrocortisone 2.5% Crm 30 GM Tube TOP PRN (22:16)
[2024-03-20] MEDS ORDERED: Oxytocin 10 Units/1 ML SDV IM PRN (22:16)
[2024-03-20] MEDS ORDERED: Witch Hazel Medicated Pads 100/Jar TOP PRN (22:16)
[2024-03-20] MEDS ORDERED: Simethicone 80 MG Tab.Chew PO PRN (22:16)
[2024-03-20] MEDS: Labetalol 20 MG/4 ML Syringe IVPUSH ONE ×2 (23:10→23:58)
[2024-03-20] MEDS: Docusate Sodium 100 MG Cap PO PRN (23:16)
[2024-03-20] MEDS: Ibuprofen 800 MG Tab PO SCH (23:16)
[2024-03-21] MEDS: Labetalol 100 MG Tab PO SCH ×2 (00:27→15:00)
[2024-03-21] MEDS: Lidocaine 1% 30 ML SDV INJECT ONE (00:29)
[2024-03-21] MEDS: Buprenorphine/Naloxone 8-2 MG Tab.SL SL SCH (00:29)
[2024-03-21] MEDS: traZODone 50 MG Tab PO PRN (02:21)
[2024-03-21] MEDS: hydrALAZINE 25 MG Tab PO ONE (04:51)
[2024-03-21 07:25] LABS: HEMATOCRIT 30.4 % (37.0-47.0); HEMOGLOBIN 10.1 g/dL (12.0-16.0); MEAN CORPUSCULAR HEMOGLOBIN 26.4 pg (27.0-34.0); MEAN CORPUSCULAR HGB CONC 33.2 g/dL (33.0-35.0); MEAN CORPUSCULAR VOLUME 79.4 fL (80-100); RED BLOOD CELL COUNT 3.83 10^6/uL (4.2-5.4); WHITE BLOOD CELL COUNT,WBC 21.5 10^3/uL (5.0-10.0)
[2024-03-21] MEDS: Prenatal Multivitamin with Calcium/Folic Acid/Iron Tab PO SCH (09:09)
[2024-03-21] MEDS: Ferrous Sulfate 325 MG Tab PO SCH (09:10)
[2024-03-21] MEDS: Calcium Gluconate 10% 1 GM/10 ML SDV IV PRN (09:45)
[2024-03-21] MEDS: hydrALAZINE 20 MG/ML SDV IVPUSH PRN (11:00)
[2024-03-21] MEDS ORDERED: hydrALAZINE 20 MG/ML SDV IVPUSH PRN (11:47)
[2024-03-21] MEDS: Labetalol 100 MG Tab PO ONE (21:08)
[2024-03-21] MEDS ORDERED: Labetalol 100 MG Tab PO SCH (23:45)
[2024-03-22] MEDS: Acetaminophen 325 MG Tab PO PRN (14:07)
[2024-03-22] MEDS: Triamcinolone Acetonide 0.1% Crm 15 GM Tube TOP SCH (14:08)
[2024-03-23 07:37] VITALS: BP 123/66; PULSE 92
[2024-03-23] MEDS ORDERED: Ropivacaine 100 ML EPIDUR ONE (11:09)
[2024-03-23] MEDS ORDERED: Ondansetron 4 MG/2 ML SDV IV ONE (11:09)
[2024-03-23] MEDS ORDERED: Ketorolac 30 MG/ML SDV IVPUSH ONE (11:09)
[2024-03-23] MEDS ORDERED: Bupivacaine 0.25% 10 ML SDV NERVRT ONE (11:09)
== END 2024-03-23 11:10 | disposition home or self-care (01) | DRG 806 ==
LOC: DL.OBCHECK 07:00 → DL.OB 07:45 → OBSVTOIN 21:34 → DL.OB 03-23 10:18
PROVIDERS: ADMIT Family Medicine; ATTEND Family Medicine
PROC: 10E0XZZ Delivery of Products of Conception, External Approach (ICD-10-PCS; principal; 2024-03-20)
PROC: 10907ZC Drainage of Amniotic Fluid, Therapeutic from Products of Conception, Via Natural or Artificial Opening (ICD-10-PCS; 2024-03-20)
PROC: 3E0R3BZ Introduction of Anesthetic Agent into Spinal Canal, Percutaneous Approach (ICD-10-PCS; 2024-03-20)
PROC: 00HU33Z Insertion of Infusion Device into Spinal Canal, Percutaneous Approach (ICD-10-PCS; 2024-03-20)
DX: O14.14 Severe pre-eclampsia complicating childbirth (principal); F11.20 Opioid dependence, uncomplicated; Z37.0 Single live birth; O99.324 Drug use complicating childbirth; F15.10 Other stimulant abuse, uncomplicated; Z3A.36 36 weeks gestation of pregnancy; O72.1 Other immediate postpartum hemorrhage
CPT/HCPCS: 36415; 51701; 51702; 59409; 80053; 80305-QW; 82570; 83615; 83735; 84156; 84550; 85027; 86592; 93005; A9270; A9270-GY; J0360; J0612; J0665; J1885; J1920; J2405; J2540; J2590; J2795; J3475; J3490; J7120

== ENCOUNTER 2024-10-18 16:23 | Emergency (ER) | payer MEDICAID ==
[2024-10-18 16:54] VITALS: BP 145/104; PULSE 90
[2024-10-18 17:04] LABS: BASOPHILS PERCENT AUTO 0.2 % (0.0-1.0); EOSINOPHILS PERCENT AUTO 0.8 % (1.0-3.0); HEMOGLOBIN 9.5 g/dL (12.0-16.0); LYMPHOCYTES PERCENT AUTO 11.1 % (20.5-50.1); MEAN CORPUSCULAR HEMOGLOBIN 23.5 pg (27.0-34.0); MEAN CORPUSCULAR HGB CONC 31.7 g/dL (33.0-35.0); MEAN CORPUSCULAR VOLUME 74.3 fL (80-100); MONOCYTES PERCENT AUTO 4.3 % (2-8); NEUTROPHILS PERCENT AUTO 83.6 % (42.2-75.2); PLATELET COUNT,PLT 308 10^3/uL (150-450); RED BLOOD CELL COUNT 4.04 10^6/uL (4.2-5.4); WHITE BLOOD CELL COUNT,WBC 11.5 10^3/uL (5.0-10.0)
[2024-10-18 17:06] LABS: APPEARANCE,URINE SLIGHTLY CLOUDY (CLEAR); BILIRUBIN,URINE NEGATIVE (NEGATIVE); COLOR,URINE YELLOW (YELLOW); GLUCOSE,URINE NEGATIVE (NEGATIVE); KETONES,URINE NEGATIVE (NEGATIVE); LEUKOCYTE ESTERASE,URINE TRACE (NEGATIVE); NITRITE,URINE NEGATIVE (NEGATIVE); OCCULT BLOOD,URINE MODERATE (NEGATIVE); PH,URINE 7.5 (5.0-9.0); PROTEIN,URINE 30 (NEGATIVE); UROBILINOGEN,URINE 0.2 mg/dL (0.2-1.0)
[2024-10-18 17:39] LABS: AMORPHOUS SEDIMENT,URINE MODERATE /HPF (NOT SEEN); BACTERIA,URINE FEW /HPF (0-FEW/HPF); EPITHELIAL CELLS,URINE MODERATE /HPF (NOT SEEN); WBC,URINE 0-5 /HPF (0-5/HPF)
== END 2024-10-18 19:22 | disposition left against medical advice (07) ==
LOC: DL.ED 16:23
DX: O20.8 Other hemorrhage in early pregnancy (principal); O99.331 Smoking (tobacco) complicating pregnancy, first trimester; F17.210 Nicotine dependence, cigarettes, uncomplicated; Z88.6 Allergy status to analgesic agent; Z79.899 Other long term (current) drug therapy; Z86.16 Personal history of COVID-19; Z3A.14 14 weeks gestation of pregnancy
CPT/HCPCS: 36415; 76801; 81001; 84702; 85025; 86850; 86900; 86901; 87086; 99283; 99284

== ENCOUNTER 2025-01-21 09:13 | Emergency (ER) | payer MEDICAID ==
[2025-01-21 09:37] LABS: BASOPHILS PERCENT AUTO 0.3 % (0.0-1.0); EOSINOPHILS PERCENT AUTO 1.0 % (1.0-3.0); LYMPHOCYTES PERCENT AUTO 14.3 % (20.5-50.1); MONOCYTES PERCENT AUTO 5.2 % (2-8); NEUTROPHILS PERCENT AUTO 79.2 % (42.2-75.2); PLATELET COUNT,PLT 326 10^3/uL (150-450); RED BLOOD CELL COUNT 4.44 10^6/uL (4.2-5.4); WHITE BLOOD CELL COUNT,WBC 12.7 10^3/uL (5.0-10.0)
[2025-01-21 09:53] LABS: AMPHETAMINES,URINE NEGATIVE (NEGATIVE); BARBITURATES,URINE NEGATIVE (NEGATIVE); MDMA (ECSTASY), URINE NEGATIVE (NEGATIVE); METHAMPHETAMINES,URINE NEGATIVE (NEGATIVE); OPIATES,URINE NEGATIVE (NEGATIVE); OXYCODONE,URINE NEGATIVE (NEGATIVE); PHENCYCLIDINE,URINE NEGATIVE (NEGATIVE); TCA,URINE NEGATIVE (NEGATIVE)
[2025-01-21 09:55] LABS: ALANINE AMINOTRANSFERASE,ALT 16 U/L (14-59); ASPARTATE AMNIOTRANSFERASE,AST 16 U/L (15-37); BILIRUBIN TOTAL 0.2 mg/dL (0.2-1.0); BLOOD UREA NITROGEN,BUN 8 mg/dL (7-18); CARBON DIOXIDE,CO2 30 mmol/L (21-32); CHLORIDE,CL 103 mmol/L (98-107); CREATININE 0.51 mg/dL (0.55-1.02); EST CRCL DRUG DOSING (CG) 141.81 mL/min; GLUCOSE RANDOM 96 mg/dL (70-99); POTASSIUM,K 4.1 mmol/L (3.5-5.1); PROTEIN TOTAL,TP 7.4 g/dL (6.4-8.2); SODIUM,NA 137 mmol/L (136-145)
[2025-01-21 09:56] LABS: A/G RATIO 0.48; ESTIMATED GFR 130 mL/min (>=60); ETHANOL BLOOD MEDICAL < 3 mg/dL (0)
[2025-01-21 10:33] VITALS: BP 116/72
[2025-01-21 10:38] VITALS: PULSE 98
== END 2025-01-21 10:29 | disposition home or self-care (01) ==
LOC: DL.ED 09:13
DX: Z02.89 Encounter for other administrative examinations (principal); Z88.6 Allergy status to analgesic agent; Z3A.25 25 weeks gestation of pregnancy; Z79.899 Other long term (current) drug therapy; Z86.16 Personal history of COVID-19
CPT/HCPCS: 36415; 80053; 80143; 80179; 80305; 80307; 83735; 85025; 99284; A9270; 99283

== ENCOUNTER 2025-03-21 21:24 | Inpatient (IN) | payer MEDICAID ==
[2025-03-21] MEDS: Lactated Ringers 1,000 ML IV ONE (22:30)
[2025-03-21 23:37] LABS: APPEARANCE,URINE SLIGHTLY CLOUDY (CLEAR); GLUCOSE,URINE NEGATIVE (NEGATIVE); OCCULT BLOOD,URINE TRACE-INTACT (NEGATIVE)
[2025-03-21] MEDS ORDERED: Carboprost Tromethamine 250 MCG/1 mL Vial IM PRN (23:42)
[2025-03-21] MEDS ORDERED: Nalbuphine HCl 10 MG/ 1ML Amp IM PRN (23:42)
[2025-03-21] MEDS ORDERED: Sodium Chloride 0.9% 10 ML Syringe FLUSH PRN (23:42)
[2025-03-21] MEDS ORDERED: Ondansetron 4 MG/2 ML SDV IVPUSH PRN (23:42)
[2025-03-21] MEDS ORDERED: Oxytocin/Lactated Ringers 30 UNIT/500 ML BAG IV SCH (23:45)
[2025-03-21 23:53] LABS: ALANINE AMINOTRANSFERASE,ALT 11 U/L (14-59); ASPARTATE AMNIOTRANSFERASE,AST 12 U/L (15-37); BLOOD UREA NITROGEN,BUN 4 mg/dL (7-18); CREATININE 0.73 mg/dL (0.55-1.02); LACTATE DEHYDROGENASE,LDH 143 U/L (81-234)
[2025-03-21 23:56] LABS: AMPHETAMINES,URINE NEGATIVE (NEGATIVE); BARBITURATES,URINE NEGATIVE (NEGATIVE); MDMA (ECSTASY), URINE NEGATIVE (NEGATIVE); METHAMPHETAMINES,URINE NEGATIVE (NEGATIVE); OPIATES,URINE NEGATIVE (NEGATIVE); OXYCODONE,URINE NEGATIVE (NEGATIVE); PHENCYCLIDINE,URINE NEGATIVE (NEGATIVE); TCA,URINE NEGATIVE (NEGATIVE)
[2025-03-21 23:57] LABS: EPITHELIAL CELLS,URINE MODERATE /HPF (NOT SEEN)
[2025-03-21 23:59] LABS: ESTIMATED GFR 115 mL/min (>=60)
[2025-03-22] MEDS: Penicillin G Potassium 5 MILLUNITS in Sodium Chloride 0.9% 100 ML IV ONE (00:06)
[2025-03-22] MEDS: Lactated Ringers 1,000 ML IV SCH (00:09)
[2025-03-22 00:12] LABS: CREATININE,URINE RAND 101.92 mg/dL (No establ ref range); PROTEIN CREATININE RATIO,URINE 210.0 mg/g (<150.0); PROTEIN,URINE RANDOM 21.4 mg/dL (0.0-11.9)
[2025-03-22 00:26] LABS: PLATELET COUNT,PLT 280.0 10^3/uL (150-450); RED BLOOD CELL COUNT 4.29 10^6/uL (4.2-5.4); WHITE BLOOD CELL COUNT,WBC 12.0 10^3/uL (5.0-10.0)
[2025-03-22] MEDS: Penicillin G Potassium 3 MILLUNITS in Sodium Chloride 0.9% 100 ML IV SCH (03:17)
[2025-03-22] MEDS: Oxytocin/Normal Saline 30 UNIT/500 ML BAG IV SCH (06:55)
[2025-03-22] MEDS ORDERED: Oxytocin 10 Units/1 ML SDV IM PRN (07:16)
[2025-03-22] MEDS ORDERED: Carboprost Tromethamine 250 MCG/1 mL Vial IM PRN (07:16)
[2025-03-22] MEDS ORDERED: Sodium Chloride 0.9% 10 ML Syringe FLUSH PRN (07:16)
[2025-03-22] MEDS: Benzocaine/Menthol 20%-0.5% Spray 78 GM Cannister TOP PRN (07:44)
[2025-03-22] MEDS: Witch Hazel Medicated Pads 100/Jar TOP PRN (07:44)
[2025-03-22] MEDS ORDERED: Buprenorphine/Naloxone 8-2 MG Tab.SL SL SCH (09:00)
[2025-03-22] MEDS: Prenatal Multivitamin with Calcium/Folic Acid/Iron Tab PO SCH (09:08)
[2025-03-22] MEDS: Buprenorphine/Naloxone 8-2 MG Tab.SL SL SCH ×2 (09:11→20:43)
[2025-03-23] MEDS: Lactated Ringers 1,000 ML IV ONE (04:12)
[2025-03-23 06:23] LABS: PLATELET COUNT,PLT 254.0 10^3/uL (150-450); RED BLOOD CELL COUNT 3.84 10^6/uL (4.2-5.4); WHITE BLOOD CELL COUNT,WBC 11.7 10^3/uL (5.0-10.0)
[2025-03-23] MEDS ORDERED: ePHEDrine 50 MG/ML SDV IVPUSH PRN (11:13)
[2025-03-23] MEDS ORDERED: Ropivacaine 200 MG in Premix Bag 1 BAG EPIDUR SCH (11:15)
[2025-03-25 09:10] LABS: PLATELET COUNT,PLT 332.0 10^3/uL (150-450); RED BLOOD CELL COUNT 4.57 10^6/uL (4.2-5.4); WHITE BLOOD CELL COUNT,WBC 14.5 10^3/uL (5.0-10.0)
[2025-03-25 09:12] LABS: APPEARANCE,URINE CLOUDY (CLEAR); GLUCOSE,URINE NEGATIVE (NEGATIVE); OCCULT BLOOD,URINE LARGE (NEGATIVE)
[2025-03-25 09:31] LABS: CREATININE,URINE RAND 112.65 mg/dL (No establ ref range); PROTEIN CREATININE RATIO,URINE 532.6 mg/g (<150.0); PROTEIN,URINE RANDOM 60.0 mg/dL (0.0-11.9)
[2025-03-25 09:34] LABS: ALANINE AMINOTRANSFERASE,ALT 14.0 U/L (14-59); ASPARTATE AMNIOTRANSFERASE,AST 17.0 U/L (15-37); BLOOD UREA NITROGEN,BUN 9.0 mg/dL (7-18); CREATININE 0.88 mg/dL (0.55-1.02); EST CRCL DRUG DOSING (CG) 82.19 mL/min; LACTATE DEHYDROGENASE,LDH 206.0 U/L (81-234)
[2025-03-25 09:35] LABS: ESTIMATED GFR 92.0 mL/min (>=60)
[2025-03-25 12:59] VITALS: BP 124/80; PULSE 62
== END 2025-03-25 12:55 | disposition home or self-care (01) | DRG 806 ==
LOC: DL.OBCHECK 21:24 → DL.OB 23:42 → OBSVTOIN 03-22 06:50
PROVIDERS: ADMIT Family Medicine; ATTEND Family Medicine
PROC: 10E0XZZ Delivery of Products of Conception, External Approach (ICD-10-PCS; principal; 2025-03-22)
PROC: 3E0R3BZ Introduction of Anesthetic Agent into Spinal Canal, Percutaneous Approach (ICD-10-PCS; principal; 2025-03-22)
DX: O60.03 Preterm labor without delivery, third trimester (principal); O98.52 Other viral diseases complicating childbirth; Z37.0 Single live birth; O99.824 Streptococcus B carrier state complicating childbirth; F17.200 Nicotine dependence, unspecified, uncomplicated; O99.02 Anemia complicating childbirth; Z3A.35 35 weeks gestation of pregnancy
CPT/HCPCS: 36415; 51702; 59409; 80305-QW; 81001; 81003; 82565; 82570; 83615; 84156; 84450; 84460; 84520; 84550; 85027; 87086; 87210; A9270; A9270-GY; J2540; J2590; J7120